=== PATIENT | female | born 1955 | race Caucasian/White ===

== ENCOUNTER → 2018-01-23 07:12 | Outpatient (CLI) | payer BC, SELFPAY ==
--- NOTE | 2018-01-23 07:24 | XR_ITS ---
XR lumbar spine min 4V COMPARISON: Lumbar spine 07/15/2014 HISTORY: Low back pain TECHNIQUE: AP lateral and oblique views and spot view lumbosacral junction FINDINGS: There is normal curvature and alignment. Again noted is minimal 5 to 6 mm anterolisthesis of L4 on L5. There is mild disc space narrowing at L4-5 level. All lumbar vertebrae appear intact and remaining disc spaces appear normal. There are hypertrophic facet changes at L4-5 and L5-S1 level as noted previously. There is no pars defect. The SI joints per normal. There is a total hip prosthesis right side. IMPRESSION: Mild degenerative disc disease L4-5 along with stable mild anterolisthesis of L4 and L5 likely secondary to prominent arthritic changes of the facet joints at L4-5. Prominent facet changes at L5-S1 are noted as well. There is been very little if any change in the appearance of the lumbar spine from previous exam.
[2018-01-23 09:08] LABS: Basophils # 0.1 K/mm3 (0-0.2); Basophils % 0.8 % (0.1-2.0); Eosinophils # 0.2 K/mm3 (0.0-0.4); Eosinophils % 2.9 % (0.1-12.0); Hematocrit 43.4 % (37.0-47.0); Hemoglobin 14.5 g/dL (12.2-16.2); Lymphocytes # 2.2 K/mm3 (0.7-4.5); Lymphocytes % 32.6 K/mm3 (10-50); Mean Corpuscular HGB Conc 33.4 g/dL (31.8-35.4); Mean Corpuscular Hemoglobin 29.5 pg (27.0-31.2); Mean Corpuscular Volume 88.4 fl (81-99); Mean Platelet Volume 9.3 fl (7.4-10.4); Monocytes # 0.4 K/mm3 (0.1-1.0); Monocytes % 5.7 % (1.7-9.3); Neutrophils # 3.9 K/mm3 (1.8-7.8); Platelet Count 276 K/mm3 (142-424); Red Blood Count 4.91 M/mm3 (4.20-5.40); Red Cell Distribution Width 13.2 % (11.5-17.5); White Blood Count 6.8 K/mm3 (4.8-10.8)
[2018-01-23 09:28] LABS: Alanine Aminotransferase 37 U/L (12-78); Albumin Level 3.6 gm/dL (3.4-5.0); Alkaline Phosphatase 79 U/L (46-116); Anion Gap 13.4 mEq/L (5-15); Aspartate Amino Transferase 31 U/L (15-37); Bilirubin,Total 0.5 mg/dL (0.2-1.0); Blood Urea Nitrogen 18 mg/dL (7-18); Calcium 8.9 mg/dL (8.5-10.1); Carbon Dioxide 25 mmol/L (21.0-32.0); Chloride 109 mmol/L (98-107); Cholesterol 186 mg/dL (140-200); Creatinine,Serum 0.78 mg/dL (0.55-1.02); Estimated Glomerular Filt Rate 75 ml/min (>60); GFR (African American) 91 ML/MIN (>60); Globulin 3.5 gm/dl (1.3-3.2); Glucose 132 mg/dL (74-106); HDL Cholesterol 47 mg/dL (29-89); LDL Cholesterol 121 mg/dL (0-130); Potassium 4.4 mmoL/L (3.5-5.1); Sodium 143 mmol/L (136-145); Total Protein,Serum 7.1 gm/dL (6.4-8.2); Triglycerides 89 mg/dL (30-200); VLDL Cholesterol 18 mg/dL (0-40)
== END ==
PROVIDERS: Visit Provider Family Medicine
DX: I10 Essential (primary) hypertension (principal); E78.5 Hyperlipidemia, unspecified; Z68.41 Body mass index [BMI] 40.0-44.9, adult; M54.16 Radiculopathy, lumbar region
CPT/HCPCS: 36415; 72110; 80053; 80061; 84443; 85025

== ENCOUNTER → 2018-03-03 07:53 | Outpatient (CLI) | payer BC, SELFPAY ==
--- NOTE | 2018-03-03 07:57 | MR_ITS ---
MR lumbar spine wo con, MR 3-d myelogram/MRCP HISTORY: LT sided LBP with pain in hip and groin and pain radiates to knee. Symptoms [id number]. No trauma ITS.REASON: ACUTE LEFT SIDED LOW BACK PAIN ORDERING PHYSICIAN: Randell Delgado MD PATIENT AGE: 62 years Comparison: X-RAY 01-23-18 TECHNIQUE: Standard multiplanar multiecho sequences are performed without contrast. 3-D MIP and myelographic images are also rendered and reviewed FINDINGS: Spinal cord ends at the T12-L1 level. L1-L2: Unremarkable. L2-L3: Minimal disc desiccation with minimal bulging disc. L3-L4: Mild disc desiccation with minimal bulging disc along with facet and ligamentum hypertrophy with mild bilateral lateral recess narrowing. L4-L5: 4 mm anterolisthesis of L4 on L5 with bulging disc along with facet and ligamentum flavum hypertrophy. L5-S1: Degenerative disc disease with bulging discs eccentric towards the right. No fracture or dislocation. No disc herniation or canal stenosis. IMPRESSION: Mild lumbar spondylosis with degenerative disc disease and bulging disc facet and ligamentum hypertrophy as detailed above. Please see above for detailed description age level. No canal stenosis or disc herniation IMPRESSION:
== END ==
PROVIDERS: Family Provider Family Medicine; PCP Family Medicine; Visit Provider Family Medicine
DX: M54.42 Lumbago with sciatica, left side (principal)
CPT/HCPCS: 72148; 76376

== ENCOUNTER 2018-03-31 07:00 | Outpatient (RCR) | payer BC, SELFPAY ==
--- NOTE | 2018-01-28 14:05 | HMH.PTOPWND ---
Rehab Outpt Wound Evaluation Rehab OP Wound Evaluation Start: 01/28/18 13:45 Freq: Status: Active Protocol: Document 01/28/18 13:45 EDY (Rec: 01/28/18 14:05 PHORNE [id number]) Electronically Signed By Kenney Akers, PT 01/28/18 13:45 Subjective/History History History Pt presents with c/o nataliya LE edema (left > right) x ~ 8 yrs , gradually worse. She reports frequent pain and limited tingling when swelling is severe. She reports hx of right CINDA 4 yrs ago, Melanoma removals from nataliya lower legs, CCY, and partial hysterectomy. Lymphedema Eval Classification of Lymphedema Secondary Lymphedema Yes Stage of Lymphedema Lymphedema stages Stage I (Pitting edema, reduces w/ elevation, no fibrosis) Skin Changes Dry Skin Yes Taut, Shiny Skin Yes Redness Yes Discoloration of Skin Yes Pain Scale Pain Scale (0-10) 10 Affected Extremities Areas Affected by Lymphedema/Edema Right Lower Extremity Left Lower Extremity Manual Lymphatic Drainage Treatment Area MLD Treatment Area Right Lower Extremity Left Lower Extremity Wound Problems/Impairments Impairments Problems/Impairmments Palpation Tenderness Impaired Walking Increased Edema Lymphedema Present Subjective C/O Pain Impaired Self Care/Self Management Prognosis Rehab Potential Good Clinical Impression Consistent with Diagnosis Yes Short Term Goals Number of Weeks 4 Decreased Palpation Tenderness Yes: to min Decrease Subjective C/O Pain Yes: 7/10 at worst Patient to Understand Lymphedema Yes Treatment and Exercises Decrease Girth Measurments by (cm) Yes: by 10 cm Farmworker Livestock Goals Number of Weeks 8 Decreased Palpation Tenderness Yes: to none Patient to be Ind w/ HEP Yes Patient to Adhere Lymphedema Precautions Yes Decrease Girth Measurments by (cm) Yes: by 15 cm Outpatient Therapy Plan of Care Treatment Plan May Include Therapeutic Exercise Including Home Yes Exercise Program Manual Therapy Techniques Yes Neuromuscular Re-education Yes Orthotics/Bracing/Splinting Yes Massage Yes Manual Lymphatic Drainage Yes Eval/Re-Eval
--- NOTE | 2018-03-31 10:56 | HMH.RHREAS ---
Rehab Reassessment Rehab OP Re-assessment Start: 03/31/18 10:49 Freq: Status: Active Protocol: Document 03/31/18 10:49 EDY (Rec: 03/31/18 10:54 EDY [id number]) Electronically Signed By Kenney Akers, PT 03/31/18 10:49 Rehab Re-assessment Subjective Subjective Pt reports improved swelling in left LE and considerably less pain. Objective Objective Notes Circumferential Measurement: Left LE total is -21.2 cm since initial eval. Assessment Progress Assessment Progressing as Expected Assessment Notes Pt following all home program well and improving edema. Patient goals met ST,2,3,[address] LT Goals Not Met ST LT,2,3 Revised Goals none Plan Plan Continue per initial POC. Frequency of Therapy 2 x/wk Duration of therapy 8 wks Time and Billing Re-Eval Time 15 Re-Eval Billing Units 1 PHYSICIAN CERTIFICATION: I certify the specified therapy services for Mindy Berman are required, authorized, and reviewed every 30 days.
== END 2018-03-31 07:01 | disposition home or self-care (01) ==
LOC: PT 07:00
PROVIDERS: Family Provider Family Medicine; PCP Family Medicine; Visit Provider Family Medicine
DX: I89.0 Lymphedema, not elsewhere classified (principal)
CPT/HCPCS: 97140; 97162; 97164; 97760

== ENCOUNTER 2018-05-27 08:00 | Outpatient (RCR) | payer BC, SELFPAY ==
--- NOTE | 2018-03-31 11:09 | HMH.PTOPEV ---
PT Outpatient Evaluation Rehab PT Outpatient Evaluation Start: 03/31/18 08:29 Freq: Status: Active Protocol: Document 03/31/18 10:58 EDY (Rec: 03/31/18 11:08 PHORRAY [id number]) Electronically Signed By Kenney Akers, PT 03/31/18 10:58 Outpatient Therapy Subjective History Subjective History Pt is a 62 yo white female who presents with worsening LPB and left LE pain x ~ 6 mos with insidious onset. She reports pain is constant, but mild, with intermittent bouts of severe pain with some activities, but no discernible pattern. She reports she went to chiropractor for 3 mos with no relief. She had MRI performed which shows L3-4 mild disc bulge and L4-5 anteriolisthesis. PMH: Right CINDA ~ 3 yrs ago, CCY, partial hysterectomy, and melanoma removal from left lower leg. Chief Complaint Pain Symptom Type Ache Throb Sharp Symptoms Relieved By Rest/Positioning Symptoms Aggravated By Physical Activity Walking Prior Functional Limitations None Current Functional Limitations Housework Standing Walking Symptom Description Constant but Variable Level of pain today (0-10) 4 Pain scale - at its worst (0-10) 10 Lumbopelvic Eval Palapation tenderness left buttock tenderness Yes Lumbar/Sacral Palpation Findings Tenderness Lumbar/Sacral Palpation Overall Comment left SI tenderness Accessory Movement L-spine Vertebrae Accessory Movements Central P/A [place] that Elicit Symptoms L3 bilateral L4 bilateral L5 bilateral S1 bilateral Range of Motion Lumbar Spine Active Flexion Range of 0-65 Motion (degrees) Lumbar Spine Active Extension Range of 0-15 Motion (degrees) Left Lumbar Spine Lateral Flexion Active 0-15 Range of Motion (degrees) Right Lumbar Spine Lateral Flexion 0-10 Active Range of Motion (degrees) Manual Muscle Test Left Knee Extension Strength Grade 5 Normal Knee Flexion Strength Grade 5 Normal Hip Flexion Strength Grade 3 Fair Hip Abduction Strength Grade 4- Good- Hip Add
--- NOTE | 2018-04-30 10:44 | HMH.RHREAS ---
Rehab Reassessment Rehab OP Re-assessment Start: 04/30/18 10:32 Freq: Status: Active Protocol: Document 04/30/18 10:33 EDY (Rec: 04/30/18 10:36 EDY [id number]) Electronically Signed By Kenney Akers, PT 04/30/18 10:33 Rehab Re-assessment Subjective Subjective Pt reports less pain in left LE but pain remains in left hip and low back. Objective Objective Notes Lumbar AROM: Flex= 0-65 deg, Ext= 0-20 deg, R SB= 0-20 deg, L SB= 0-20 deg. Assessment Progress Assessment Progressing as Expected Assessment Notes Pt has less radicular symptoms , but pain remains in left hip . Patient goals met ST,2,3,4,5 LT Goals Not Met ST LT,2,3,4,5 Revised Goals none Plan Plan Continue per initial POC. Frequency of Therapy 2 x/wk Duration of therapy 8 wks. Time and Billing Re-Eval Time 15 Re-Eval Billing Units 1 PHYSICIAN CERTIFICATION: I certify the specified therapy services for Mindy Berman are required, authorized, and reviewed every 30 days.
== END 2018-05-27 08:01 | disposition home or self-care (01) ==
LOC: PT 08:00
PROVIDERS: Family Provider Family Medicine; PCP Family Medicine; Visit Provider Physician Assistant
DX: M54.42 Lumbago with sciatica, left side (principal)
CPT/HCPCS: 97010; 97014; 97033; 97110; 97140; 97163; 97164; G0283

== ENCOUNTER → 2018-10-14 16:32 | Outpatient (CLI) | payer BC, SELFPAY ==
--- NOTE | 2018-10-14 16:40 | XR_ITS ---
XR chest 2V HISTORY: Productive cough ITS.REASON: Bronchitis ORDERING PHYSICIAN: SASHA Wharton PATIENT AGE: 63 years COMPARISON: 06/08/2012 FINDINGS: The cardiomediastinal silhouette and pulmonary vascularity are within normal limits. The lungs are clear without infiltrates, suspicious nodules, or pleural effusions. No acute bony abnormalities. IMPRESSION: Negative chest, no acute finding
== END ==
PROVIDERS: PCP Physician Assistant; Visit Provider Physician Assistant
DX: J40 Bronchitis, not specified as acute or chronic (principal)
CPT/HCPCS: 71046

== ENCOUNTER → 2019-02-03 12:53 | Outpatient (CLI) | payer BC, SELFPAY ==
--- NOTE | 2019-02-03 12:55 | XR_ITS ---
XR DEXA axial skeleton HISTORY: ITS.REASON: POST MENOPAUSAL SCREENING ORDERING PHYSICIAN: Elmira Duenas MD PATIENT AGE: 63 years COMPARISON: None FINDINGS: The BMD measured at the Total femoral neck is 0.916 g/cm squared with a T score of -0.7. This is considered Normal according to the World Health Organization criteria. Fracture risk is Low. Treatment is advised. The L1 L4 density has a T score of 1 which is normal.. IMPRESSION: Normal bone density with low fracture risk. Recommend follow-up exam in January 2021
== END ==
PROVIDERS: PCP Emergency Medicine; Visit Provider Emergency Medicine
DX: Z13.820 Encounter for screening for osteoporosis (principal); Z78.0 Asymptomatic menopausal state
CPT/HCPCS: 77080

== ENCOUNTER → 2019-05-02 15:19 | Outpatient (CLI) | payer BC, SELFPAY ==
--- NOTE | 2019-05-02 15:24 | NVE_ITS ---
Venous Exam Indications: 729.5 Pain in limb. 782.3 Edema. IMPRESSIONS 1. There is no evidence of significant Reflux. 2. No evidence of deep or superficial vein thrombosis involving the left lower extremity Left lower extremity venous duplex evaluation. Doppler flow study including spectral analysis, color and salazar scale imaging. Location: Vascular laboratory. Patient status: Outpatient. Tables: Venous flow and imaging: + +-------+ + Location Overall Flow properties + +-------+ + Left common femoral Patent Normal phasicity; spontaneous; normal augmentation; compressible + +-------+ + Left saphenofemoral junction Patent Compressible + +-------+ + Left profunda femoral Patent Compressible + +-------+ + Left femoral Patent Normal phasicity; spontaneous; normal augmentation; compressible + +-------+ + Left greater saphenous Patent Normal phasicity; spontaneous; normal augmentation; compressible + +-------+ + Left popliteal Patent Normal phasicity; spontaneous; normal augmentation; compressible + +-------+ + Left posterior tibial Patent Compressible + +-------+ + Left peroneal Patent Compressible + +-------+ + Left gastrocnemius Patent Compressible + +-------+ + Left soleal Patent Compressible + +-------+ + (Report amended ) Electronically signed by: Julio Pedro [id number]
== END ==
PROVIDERS: PCP Emergency Medicine; Visit Provider Emergency Medicine
DX: M79.662 Pain in left lower leg (principal); M79.89 Other specified soft tissue disorders
CPT/HCPCS: 93971

== ENCOUNTER → 2019-09-10 10:02 | Outpatient (CLI) | payer BC, SELFPAY ==
--- NOTE | 2019-09-10 10:09 | CA_ITS ---
APPROVED REPORT EXAM: Comprehensive 2D, Doppler, and color-flow Echocardiogram Pest Control Operator: Gricelda Garcia RDCS Ht: 5 ft 5 in Wt: 250lbs BSA: 2.17 BP: 155/70 mmHg Indications: TIA M-Mode Dimensions RVDd 2.77 cm (0.9-2.6) LVDd 4.61 cm (3.5-5.7) LVDs 3.31 cm (3.5-5.7) IVSd 0.76 cm (0.6-1.1) PWd 0.78 cm (0.6-1.1) EF (Teich) 54.50% FS 28.20% EDV (Teich) 97.80 mL ESV (Teich) 44.50 mL LV Diastology E/A Ratio 1.16 Mitral Valve MV A Velocity 87.00 (40-130 cm/s) Left Ventricle Left atrium is mildly enlarged, left ventricle is normal size, mild concentric left ventricular hypertrophy, visually estimated ejection fraction 55% with no regional wall motion abnormality. Grade 1 diastolic dysfunction seen without tissue Doppler evidence of raise left atrial pressure. Right Ventricle Right atrium and right ventricular normal size and contractility. Aortic Valve Aortic valve is minimally thickened and fibrosed. There is no aortic stenosis or aortic insufficiency. Mitral Valve Mitral valve leaflets are minimally thickened, there is mild mitral regurgitation. Tricuspid Valve Tricuspid valve is grossly normal. There is mild tricuspid regurgitation. Calculated right ventricular systolic pressure 39 mmHg. Pulmonic Valve Pulmonic valve is poorly visualized. Conclusion 1. Mildly enlarged left atrium, normal left ventricular size, mild concentric left ventricular hypertrophy, visually estimated ejection fraction 55% with no regional wall motion abnormality, grade 1 diastolic dysfunction seen without tissue Doppler evidence of raise left atrial pressure. 2. Mild mitral and tricuspid regurgitation. 3. No significant pericardial effusion noted. Electronically signed by : Nba Marte, 09/12/2019 09:48:30
== END ==
PROVIDERS: PCP Family Medicine; Visit Provider Family Medicine
DX: G45.9 Transient cerebral ischemic attack, unspecified (principal)
CPT/HCPCS: 93306

== ENCOUNTER → 2019-11-12 12:50 | Outpatient (CLI) | payer BC, SELFPAY ==
--- NOTE | 2019-11-12 12:50 | MR_ITS ---
PROCEDURE: MR HEAD/BRAIN WO CON CLINICAL INDICATION: TIA Headache, double vision, follow-up abnormal head CT COMPARISON: CT HEAD/BRAIN WO CON from 09/03/2019 TECHNIQUE: Routine multiplanar multi echo sequences are performed without gadolinium enhancement. FINDINGS: No midline shift, mass effect, intracranial hemorrhage, or hydrocephalus. The cerebellopontine angles, cerebellum, brainstem and mid brain have an unremarkable appearance. No evidence of acute infarction. There is some minimal T2 white matter hyperintensity noted in the right occipital lobe nonspecific. No acute infarctions are evident. No restricted diffusion. The hippocampal gyri are unremarkable and the temporal horns are symmetric. No intra-axial or extra-axial hemorrhage. The pituitary, optic chiasm, corpus callosum, and craniocervical junction have an unremarkable appearance. No mastoid effusion or sinus air-fluid level. THE IMPRESSION: 1. No acute intracranial findings. 2. Small area of increased T2 signal in the white matter of the right occipital lobe nonspecific and could be due to minimal ischemic gliotic change. Dictated by: Kevin Grant MD 11/15/2019 09:32 Electronically signed by Kevin Grant MD in [place] 11/15/2019 09:32
== END ==
PROVIDERS: PCP Family Medicine; Visit Provider Specialist
DX: G45.9 Transient cerebral ischemic attack, unspecified (principal); G43.119 Migraine with aura, intractable, without status migrainosus; R03.0 Elevated blood-pressure reading, without diagnosis of hypertension; R51 Headache; R93.89 Abnormal findings on diagnostic imaging of other specified body structures; E78.5 Hyperlipidemia, unspecified; G47.00 Insomnia, unspecified; R06.83 Snoring
CPT/HCPCS: 70551; 93225; 93226; 94762

== ENCOUNTER 2019-12-09 07:10 | Day surgery (SDC) | payer BC, SELFPAY ==
--- NOTE | 2019-12-09 | CA_ITS ---
APPROVED REPORT Exam: Pharmacologic Technologist: Myla Shanks, Ht: 5 ft 5 in Wt: 252 lbs BSA: 2.18 m2 HR: 50 bpm BP: 132/76 mmHg Rhythm: SINUS BRADYCARDIA Indications: TIA,CAD,CP Medical History Medical History: CAD non obstructive, Stroke/TIA, CHEST PAIN Medications: Propranolol,,,,, SpirOnolactone,,,,, LevothROXINE,,,,, Allergies: AMOXICILLIN,ATORVASTATIN,AZITHROMYACIN Cardiac Risk Factors: FHX of CAD Stress Test Details Test: LEXISCAN HR Resting HR: 47 bpm Max Heart Rate (APMHR): 158 bpm Max HR Achieved: 83 bpm Target HR (85% APMHR): 134 bpm % of APMHR: 52 Recovery HR: 62 bpm BP Resting BP: 132.0/76.0 mmHg Max BP: 139.0/65.0 mmHg Recovery BP: 121.0/61.0 mmHg ECG Resting ECG: SINUS BRADYCARDIA Clinical Exercise duration: 04:01 min Highest Stage Achieved: Stress ECG Conclusion DURING INFUSION OF LEXISCAN PATIENT HAD SOA AND MALAISE BUT NO CHEST PAIN. NO ARRHYTHMIAS/ECTOPY. NO SIGNIFICANT ST-T CHANGES. UNREMARKABLE LEXISCAN STRESS. MYOVIEW IMAGES REPORTED SEPARATELY. Test Summary REST 09:16 . . 47 . 132/ 76 . . Stage 1 01:00 . . 72 . . . . Stage 2 01:00 . . 73 . 139/ 65 . . Stage 3 01:00 . . 70 . . . . Stage 4 01:00 . . 66 . 119/ 56 . . Stage 4 01:01 . . 67 . 119/ 56 . Stop exercise at 04:01 RECOVERY 01:00 . . 67 . . . . RECOVERY 02:00 . . 66 . 121/ 61 . . RECOVERY 03:00 . . 64 . 127/ 68 . . RECOVERY 03:23 . . 63 . 127/ 68 . . Electronically signed by : Nba Marte, 12/09/2019 13:58:23
--- NOTE | 2019-12-09 07:18 | NM_ITS ---
APPROVED REPORT Exam: Nuclear Stress Test Indication: chest pain..short of breath..palpitations..fatique Patient Location: Outpatient Stress Tech: Myla Rimma LA Tech:Eula SanfordSHAINA RT(R)(N) Ht: 5 ft 5 in Wt: 252 lbs Bra Size: 40dd HR: 50 bpm BP: 132/76 mmHg BSA: 2.18 m2 BMI: 41.9 History: chest pain..short of breath..palpitations..fatique Procedure: Patient received a 0.4 mg of intravenous Lexiscan, resting heart rate 50 bpm, resting blood pressure 132/76 mmHg, with Lexiscan maximum heart rate achived was 74 bpm which is Less than 85 % of the maximum predicted heart rate and blood pressure was 139/65 mmHg. With Lexiscan, patient denied any complaint of chest pain. Electrocardiogram Resting electrocardiogram showed sinus rhythm, with Lexiscan there is less than 1.[address] segment depression noted from the baseline EKG. The EKG portion of the Lexiscan Myoview is nondiagnostic. Cardiac Stress and Resting SPECT Images: Cardiac Stress and Resting SPECT images were obtained using technetium 99m Myoview 32.3 mCi stress and 10.31 mCi at rest. Gated SPECT with analysis of segmental wall motion and calculation of the ejection fraction also done. Cardiac stress and resting SPECT images show a mild fixed defect at the apex with normal contractility on gated SPECT is likely secondary to apical thinning, no reversible ischemia seen, computer derived ejection fraction is 52% with no regional wall motion abnormality, right ventricle is normal size and contractility. Conclusion: 1. The EKG portion of the Lexiscan Myoview is nondiagnostic. 2. No obvious scintigraphic evidence of reversible ischemia seen, a mild fixed defect at the apex with normal contracted gated SPECT is likely secondary to soft tissue attenuation, computer derived ejection fraction 52% with no regional wall motion abnormality, right ventricle is normal size and contractility. 3. Likely normal Lexiscan Myoview study. Electronically signed by : Nba Marte, 12/09/2019 14:00:55
--- NOTE | 2019-12-09 07:18 | CA_ITS ---
APPROVED REPORT EXAM: Comprehensive 2D, Doppler, and color-flow Echocardiogram Snath Handle Assembler: Gricelda Garcia RDCS Ht: 5 ft 5 in Wt: 255lbs BSA: 2.19 BP: 110/86 mmHg Indications: CVA/TIA KIN Procedure After obtaining informed consent, patient underwent transesophageal echo in the Aeronautical [facility]fter. Type of Sedation : Conscious Sedation Sedation was administered by Dillan CuellarNVandana Transesophageal probe was inserted and advanced into esophagus without difficulty by Dr. Nilton Lee. The KIN was performed without complications. Throughout the procedure, the blood pressure, pulse oximetry, cardiac rhythm, and rate were monitored. The patient tolerated the procedure without adverse effects. Recovery from conscious sedation was uneventful and vital signs were stable. Left Ventricle Left ventricle is normal size, mild concentric left ventricular hypertrophy, visually estimated ejection fraction 55% with no regional wall motion abnormality. Right Ventricle Right ventricle is normal size and contractility. Atria Left atrium is mildly enlarged, left atrial appendage free of thrombus, there is good appendage flow by spectral Doppler. Right atrium is normal size. Intra-atrial septum is intact, there is no flow across the interatrial septum, agitated saline contrast reveals 25 intracardiac shunt. Aortic Valve Aortic valve is minimally thickened and fibrosed, there is no aortic stenosis or aortic insufficiency. Mitral Valve Mitral valve is grossly normal, there is mild mitral regurgitation. Tricuspid Valve Tricuspid valve is grossly normal, there is mild tricuspid regurgitation. Pulmonic Valve Pulmonic valve is poorly visualized. Great Vessels Aortic root is normal size. Non-mobile atheromatous plaque seen in the arch and descending thoracic aorta. Pericardium No significant pericardial effusion noted. Conclusion 1. Mildly enlarged left atrium, normal left ventricular size, mild concentric left ventricular hypertrophy, visually estimated ejection fraction 55% with no regional wall motion abnormality. 2. Agitated saline contrast study fails to identify intracardiac shunt. Intra-atrial septum is intact. 3. Mild mitral and tricuspid regurgitation. 4. Non-mobile atheromatous plaque seen in the arch and descending thoracic aorta. 5. No significant pericardial effusion noted. Electronically signed by : Nba Marte, 12/09/2019 15:51:48
--- NOTE | 2019-12-09 09:34 | HMH.ITSHM ---
Current Home Medications as stated by this patient Mindy Berman or inside account representative. [] synthyroid propanolol spiralactone
[2019-12-09 11:52] VITALS: BMI 42.4
[2019-12-09 12:35] VITALS: BP 163/75; PULSE 51; PULSE 52; RESP 16; TEMP 37.1; O2SAT 100
[2019-12-09 13:19] VITALS: BP 157/75; PULSE 74; RESP 16; TEMP 36.8; O2SAT 98
[2019-12-09 13:25] VITALS: BP 132/62; PULSE 56; RESP 16; O2SAT 99
--- NOTE | 2019-12-09 13:26 | HMH.ANESCL ---
[facility] Anesthesia Checklist - Patient Identification Patient Identification: Arm Band, Verbal (Name & ) - Structural Data Admitted From: Home Planned Operative Procedure/s: KIN Consent for Planned Operative Procedure(s) Verified: Yes Verified Documents: History and Physical - NPO Status Verified Time NPO: 00:00 - Additional verifications Patient : No Anesthesia Reactions: No Hx Blood Transfusions: No Blood Transfusion Reaction: No Cephalosporin Allergy: No Previous Colonoscopy: No - Cardiovascular Assessment Heart Sounds: S1 & S2 Pulse Strength: Baseline Pulse Rhythm: Regular Peripheral Edema: No - Airway Assessment C-Spine Mobility Assessed: Yes TMJ Mobility Assessed: Yes Dentition: Good Dentition - Neurological Assessment Level of Consciousness: Awake, Alert, Appropriate Hx Seizures: No Numbness or tingling in extremities: No - Anesthesia Plan Anesthesia Risk discussed: Yes Anesthesia Plan: Verified ASA Class: III Anesthesia Type: MAC [facility] History I have reviewed the patient's past medical history: Yes Medical History: Reports:: Cancer, Heart Murmur, Hypertension, Kidney Stones, Migraine, Transient Ischemic Attacks (TIA) Denies:: Diabetes Mellitus Type 1, Diabetes Mellitus Type 2, Internal Pacemaker, Seizures *Have you ever received a pneumonia vaccine?: No *Have you received a flu vaccine this season?: Yes Other Medical History: Reports: Arthritis, Thyroid Disease Anesthesia experience/problems:: none Laterality Cases: Right: Arthroscopy Knee, Bilateral: Total Hip Replacement Other Surgeries: Yes: Cholecystectomy, Hysterectomy-Partial. No: Pacemaker - *Social History Educational Level: Completed High School Smoking Status: Never smoker Alcohol Intake: never Substance Use Type: denies use *Occupational Status:: retired Housing: house Household Members: spouse *Travel in the last 8 weeks: None Family Hx:: Cancer, Diabetes
[2019-12-09 13:30] VITALS: BP 121/71; PULSE 60; RESP 16; O2SAT 98
[2019-12-09 14:50] VITALS: BP 121/71; PULSE 60; RESP 16; O2SAT 98
== END 2019-12-09 15:01 | disposition home or self-care (01) ==
LOC: RAD 07:10
PROVIDERS: Internal Medicine Cardiovascular Disease; PCP Family Medicine; Visit Provider Physician Assistant
DX: R94.31 Abnormal electrocardiogram [ECG] [EKG] (principal); I63.9 Cerebral infarction, unspecified; R00.1 Bradycardia, unspecified; R07.9 Chest pain, unspecified
CPT/HCPCS: 78452; 93017; 93312; A9502; J2785

== ENCOUNTER → 2020-04-10 07:28 | Outpatient (CLI) | payer BC, SELFPAY ==
[2020-04-10 07:52] LABS: Basophils # 0.1 K/mm3 (0-0.2); Basophils % 0.8 % (0.1-2.0); Eosinophils # 0.4 K/mm3 (0.0-0.4); Eosinophils % 4.9 % (0.1-12.0); Hematocrit 43.3 % (37.0-47.0); Hemoglobin 14.3 g/dL (12.2-16.2); Lymphocytes # 2.8 K/mm3 (0.7-4.5); Lymphocytes % 33.9 % (10-50); Mean Corpuscular HGB Conc 33.1 g/dL (31.8-35.4); Mean Corpuscular Hemoglobin 30.5 pg (27.0-31.2); Mean Platelet Volume 8.1 fl (7.4-10.4); Monocytes # 0.5 K/mm3 (0.1-1.0); Monocytes % 5.5 % (1.7-9.3); Neutrophils # 4.4 K/mm3 (1.8-7.8); Neutrophils % 54.8 % (37.0-80.0); Platelet Count 253 K/mm3 (142-424); Red Blood Count 4.71 M/mm3 (4.20-5.40); Red Cell Distribution Width 13.5 % (11.5-17.5); White Blood Count 8.1 K/mm3 (4.8-10.8)
[2020-04-10 09:59] LABS: Chloride 107 mmol/L (98-107); Potassium 4.5 mmoL/L (3.5-5.1); Sodium 138 mmol/L (136-145)
[2020-04-10 10:01] LABS: Blood Urea Nitrogen 8 mg/dl (7-17); Estimated Glomerular Filt Rate 73 ml/min (>60); GFR (African American) 88 ML/MIN (>60)
[2020-04-10 10:02] LABS: Alanine Aminotransferase 33 U/L (12-78); Albumin Level 3.4 g/dl (3.5-5.0); Alkaline Phosphatase 77 U/L (38-126); Anion Gap 8.5 mEq/L (5-15); Aspartate Amino Transferase 42 U/L (14-36); Bilirubin,Total 0.4 mg/dl (0.2-1.3); Calcium 9.5 mg/dl (8.4-10.2); Carbon Dioxide 27 mmol/L (22.0-30.0); Chol/HDL Ratio 3.9 (1-3.5); Cholesterol 173 mg/dl (140-200); Glucose 126 mg/dl (74-100); HDL Cholesterol 44 mg/dl (40-60); Total Protein,Serum 6.1 g/dl (6.3-8.2); Triglycerides 124 mg/dl (30-150); VLDL Cholesterol 25 mg/dL (0-40)
[2020-04-10 10:08] LABS: Bilirubin,Unconjugated 0.4 mg/dL (0.0-1.1)
[2020-04-10 10:48] LABS: Bilirubin,Indirect 0.4 mg/dL (0.0-0.9)
== END ==
PROVIDERS: Visit Provider Physician Assistant
DX: R06.02 Shortness of breath (principal); I10 Essential (primary) hypertension; R53.83 Other fatigue
CPT/HCPCS: 36415; 80048; 80061; 80076; 85025

== ENCOUNTER → 2020-04-24 11:52 | Outpatient (CLI) | payer BC, SELFPAY ==
[2020-04-24 12:59] LABS: Chloride 105 mmol/L (98-107); Potassium 4.5 mmoL/L (3.5-5.1); Sodium 137 mmol/L (136-145)
[2020-04-24 13:02] LABS: Anion Gap 11.5 mEq/L (5-15); Blood Urea Nitrogen 8 mg/dl (7-17); Carbon Dioxide 25 mmol/L (22.0-30.0); Estimated Glomerular Filt Rate 85 ml/min (>60); GFR (African American) 102 ML/MIN (>60)
[2020-04-24 13:03] LABS: Calcium 8.7 mg/dl (8.4-10.2); Glucose 108 mg/dl (74-100)
[2020-04-24 13:34] LABS: Thyroid Stimulating Hormone 1.61 uIU/mL (0.465-4.68)
== END ==
PROVIDERS: Visit Provider Physician Assistant
DX: R07.9 Chest pain, unspecified (principal); R06.02 Shortness of breath; I10 Essential (primary) hypertension; R53.83 Other fatigue; E03.9 Hypothyroidism, unspecified
CPT/HCPCS: 36415; 80048; 84443

== ENCOUNTER → 2020-05-01 10:33 | Outpatient (CLI) | payer BC, SELFPAY ==
[2020-05-01 11:12] LABS: Chloride 101 mmol/L (98-107); Potassium 4.8 mmoL/L (3.5-5.1); Sodium 136 mmol/L (136-145)
[2020-05-01 11:15] LABS: Anion Gap 14.8 mEq/L (5-15); Blood Urea Nitrogen 17 mg/dl (7-17); Carbon Dioxide 25 mmol/L (22.0-30.0); Estimated Glomerular Filt Rate 85 ml/min (>60); GFR (African American) 102 ML/MIN (>60)
[2020-05-01 11:16] LABS: Glucose 115 mg/dl (74-100)
== END ==
PROVIDERS: Visit Provider Physician Assistant
DX: R06.02 Shortness of breath (principal); I20.8 Other forms of angina pectoris; R00.1 Bradycardia, unspecified; R60.9 Edema, unspecified; R94.39 Abnormal result of other cardiovascular function study; Z86.79 Personal history of other diseases of the circulatory system
CPT/HCPCS: 36415; 80048

== ENCOUNTER → 2020-11-15 09:31 | Outpatient (CLI) | payer BC, SELFPAY | PROVIDERS: PCP Family Medicine; Visit Provider Urology | DX: R42 Dizziness and giddiness (principal); R55 Syncope and collapse; R00.2 Palpitations; R00.1 Bradycardia, unspecified; I10 Essential (primary) hypertension; I63.9 Cerebral infarction, unspecified | CPT/HCPCS: 93270 ==

== ENCOUNTER → 2020-11-21 07:16 | Outpatient (CLI) | payer BC, SELFPAY ==
--- NOTE | 2020-11-21 07:41 | CT_ITS ---
PROCEDURE: CT HEAD/BRAIN WO CON CLINICAL INDICATION: blurry vision, dizziness COMPARISON: CT CT ANGIO HEAD from 09/03/2019 TECHNIQUE: Axial images obtained. All CT scans at the facility use one or more dose reduction, viz: automated exposure control, ma/kV adjustment per patient size (including targeted exams where dose is matched to indication, i.e. head), or iterative reconstruction technique. FINDINGS: No midline shift, mass effect, intracranial hemorrhage, hydrocephalus, or extra-axial fluid collection is evident. The calvarium has an unremarkable appearance. No mastoid effusion. No sinus air-fluid level. IMPRESSION: No acute intracranial finding Dictated by: Kevin Grant MD 11/21/2020 15:11 Kevin Grant MD in [place] 11/21/2020 15:11
[2020-11-21 07:53] LABS: Chloride 109 mmol/L (98-107); Sodium 139 mmol/L (136-145)
[2020-11-21 07:54] LABS: Potassium 4.2 mmoL/L (3.5-5.1)
--- NOTE | 2020-11-21 07:55 | CA_ITS ---
APPROVED REPORT [place] Carver: RUSSELL Laterality: Bilateral Indications: syncope, dizziness, blurred vision, bradycardia, hx of stroke Risk Factors Hypertension: Doppler Spectral Velocity Analysis ECA (R) 78.60/15.00 cm/s ECA (L) 63.60/11.80 cm/s dICA (R) 68.50/30.00 cm/s dICA (L) 90.50/26.20 cm/s Robin (R) 114.00/45.40 cm/s Robin (L) 102.00/36.00 cm/s pICA (R) 83.80/30.70 cm/s pICA (L) 77.70/29.50 cm/s dCCA (R) 72.60/19.50 cm/s dCCA (L) 50.10/19.30 cm/s pCCA (R) 89.80/24.60 cm/s pCCA (L) 73.80/16.10 cm/s Vert (R) 43.70/10.90 cm/s Vert (L) 56.90/20.20 cm/s ICA/CCA 1.57 ICA/CCA 2.04 Findings Duplex evaluation demonstrates stenosis of the right proximal internal carotid artery <20% with PSV <140 cm/sec, EDV <100 cm/sec, and IC/CC Ratio <4.0. Duplex evaluation demonstrates stenosis of the left proximal internal carotid artery <20% with PSV <140 cm/sec, EDV <100 cm/sec, and IC/CC Ratio <4.0. Conclusion Duplex evaluation demonstrates stenosis of the right proximal internal carotid artery <20% with PSV <140 cm/sec, EDV <100 cm/sec, and IC/CC Ratio <4.0. Duplex evaluation demonstrates stenosis of the left proximal internal carotid artery <20% with PSV <140 cm/sec, EDV <100 cm/sec, and IC/CC Ratio <4.0. Electronically signed by : Kevin Grant MD 11/21/2020 14:57:09
--- NOTE | 2020-11-21 07:55 | CA_ITS ---
APPROVED REPORT EXAM: Comprehensive 2D, Doppler, and color-flow Echocardiogram Tax Evaluator: Katherine Beaver, RT(R) Ht: 5 ft 5 in Wt: 251lbs BSA: 2.18 BP: 155/58 mmHg Indications: palpitations, murmur, syncope, edema, HTN, dizziness, blurred vision, bradycardia, hx of stroke 2D Dimensions LVOT 1.81 cm (M/F) 1.5-2.5 M-Mode Dimensions RVDd 2.92 cm (0.9-2.6) LA Diam 3.02 cm (1.9-4.0) LVDd 3.14 cm (3.5-5.7) Ao Diam 3.32 cm (2.0-3.7) LVDs 2.46 cm (3.5-5.7) IVSd 1.31 cm (0.6-1.1) PWd 1.02 cm (0.6-1.1) EF (Teich) 45.30% FS 21.70% EDV (Teich) 39.10 mL ESV (Teich) 21.40 mL LV Diastology E Decel Time 233.00 (160-240 msec) E/A Ratio 1.2 MED E' 8.00 (< 7 cm/sec) E'/MED E' Ratio 11.33 (>14) LAT E' 10.30 (<10 cm/sec) E/LAT E' Ratio 8.80 (>14) Mitral Valve MV E Max Valeriano. 91.00 (40-130 cm/s) MV A Velocity 79.00 (40-130 cm/s) E/A Ratio 1.15 MV Decel. Time 233.00 (160-240 ms) MV PHT 68.00 ms Tricuspid Valve TR P. Velocity 245.00 cm/s RAP Estimate 15.00 mmHg RVSP 39.10 mmHg Left Ventricle Left atrium is mildly enlarged, left ventricle is normal size, mild concentric left ventricular hypertrophy, visually estimated ejection fraction 55% with no regional wall motion abnormality, grade 1 diastolic dysfunction seen without tissue Doppler evidence of raise left atrial pressure. Right Ventricle Right atrium and right ventricle are normal size and contractility. Aortic Valve Aortic valve is minimally thickened and fibrosed, there is no aortic stenosis or aortic insufficiency. Mitral Valve Mitral valve is grossly normal, there is mild mitral regurgitation. Tricuspid Valve Tricuspid valve is grossly normal, there is mild tricuspid regurgitation, tricuspid regurgitation jet velocity is inadequate for calculation of the right ventricular systolic pressure. Pulmonic Valve Pulmonic valve is poorly visualized. Great Vessels Aortic root is normal size. Pericardium No significant pericardial effusion noted. Conclusion 1. Mildly enlarged left atrium, normal left ventricular size, mild concentric left ventricular hypertrophy, visually estimated ejection fraction 55% with no regional wall motion abnormality, grade 1 diastolic dysfunction seen without tissue Doppler evidence of raise left atrial pressure. 2. Mild mitral and tricuspid regurgitation. 3. No significant pericardial effusion noted. Electronically signed by : Nba Marte, 11/21/2020 20:33:21
[2020-11-21 07:56] LABS: Blood Urea Nitrogen 9 mg/dl (7-17); Estimated Glomerular Filt Rate 85 ml/min (>60); GFR (African American) 102 ML/MIN (>60)
[2020-11-21 07:57] LABS: Anion Gap 9.2 mEq/L (5-15); Carbon Dioxide 25 mmol/L (22.0-30.0); Glucose 135 mg/dl (74-100)
[2020-11-21 08:14] LABS: Free T4 (Free Thyroxine) 0.67 ng/dl (0.78-2.19)
[2020-11-21 08:28] LABS: Thyroid Stimulating Hormone 2.11 uIU/mL (0.465-4.68)
== END ==
PROVIDERS: PCP Family Medicine; Visit Provider Urology
DX: R00.2 Palpitations (principal); R42 Dizziness and giddiness; R55 Syncope and collapse; H53.8 Other visual disturbances; I10 Essential (primary) hypertension; I63.9 Cerebral infarction, unspecified; R00.1 Bradycardia, unspecified
CPT/HCPCS: 36415; 70450; 80048; 84439; 84443; 93306; 93880

== ENCOUNTER 2021-01-31 15:13 | Emergency (ER) | payer BC, SELFPAY ==
[2021-01-31] VITALS (7 sets, daily range): BP systolic 161–193; BP diastolic 71–87; PULSE 49–55; RESP 16; TEMP 36.6; O2SAT 98–99; BMI 41.1; BMI 42.2
--- NOTE | 2021-01-31 15:07 | ECG_ITS ---
APPROVED REPORT Exam: Resting ECG HR:52 bpm ECG Measurements Heart Rate 52 AXES QRSd 78 QRS 41 QT 438 T 50 QTc 407 Conclusion Junctional rhythm Abnormal ECG Electronically signed by : Dillan Quinn, 01/31/2021 17:33:24
--- NOTE | 2021-01-31 15:15 | HMH.EDGENADL ---
ED Disposition Clinical Impression: Headache Qualifiers: Headache type: unspecified Headache chronicity pattern: unspecified pattern Intractability: not intractable Qualified Code(s): R51.9 - Headache, unspecified Disposition: Home, Self-Care Condition on Discharge: Good Instructions: DI for Migraine Additional Instructions: Please follow-up with primary care doctor for further management of migraines. Return immediately if recurrent headaches, neurologic deficits, vision changes, or other new concerning symptoms. - Critical Care Critical Care Time: No Attestation: On , the high probability of a clinically significant, sudden or life threatening deterioration of the following system(s) required my full and direct attention, intervention and personal management. The time I documented below is in addition to time spent performing reported procedures but includes the following listed in this critical care notation. Medical Decision Making - Medical Records Medical records reviewed: Yes: I reviewed the patient's medical records. - Yony Inquiry Pt receiving controlled substance: No Vital Signs: 01/31/21 15:14 01/31/21 16:22 01/31/21 16:31 Temperature 97.8 F Temperature Source Oral Pulse Rate 51 L 50 L Pulse Rate [Radial] 55 L Respiratory Rate 16 Blood Pressure 176/79 H 179/71 H Blood Pressure [Right Arm] 193/87 H Blood Pressure Mean 98 91 Blood Pressure Mean [Right Arm] 122 Blood Pressure Position [Right Arm] Sitting 02 Sat by Pulse Oximetry 98 98 Oxygen Delivery Method Room Air 01/31/21 17:52 01/31/21 18:03 Temperature Temperature Source Pulse Rate 55 L 50 L Pulse Rate [Radial] Respiratory Rate Blood Pressure 166/74 H 161/75 H Blood Pressure [Right Arm] Blood Pressure Mean 84 101 Blood Pressure Mean [Right Arm] Blood Pressure Position [Right Arm] 02 Sat by Pulse Oximetry 99 99 Oxygen Delivery Method - Lab Data Lab Results 01/31/21 15:25: Sodium 137, Potassium 4.2, Chloride 103, Carbon Dioxide 26, Anion Gap 12.2, BUN 12, Creatinine 0.70, Estimated Creat Clear 50, Estimated GFR 85, Est GFR ( Amer) 102, Glucose 123 H, Calcium 9.1, Total Bilirubin 0.5, AST 36, ALT 25, Alkaline Phosphatase 93, Troponin I < 0.01, Total Protein 7.8 D, Albumin 4.4, Globulin 3.4 H, Albumin/Globulin Ratio 1.3 01/31/21 15:40: WBC 9.5, RBC 4.66, Hgb 14.3, Hct 42.6, MCV 91.3, MCH 30.7, MCHC 33.6, RDW 13.7, Plt Count 252, MPV 8.5, Neut % (Auto) 55.7, Lymph % (Auto) 34.9, Dougherty % (Auto) 6.2, Eos % (Auto) 2.5, Baso % (Auto) 0.7, Neut # (Auto) 5.3, Lymph # (Auto) 3.3, Dougherty # (Auto) 0.6, Eos # (Auto) 0.2, Baso # (Auto) 0.1 01/31/21 15:40: PT 10.8, INR 0.91, APTT 25.0 Result diagrams: 01/31/21 15:40 01/31/21 15:25 Orders (Tests/Meds): ED MEDICATIONS Discontinued Medications Generic Name Dose Route Start Last Admin Trade Name Freq PRN Reason Stop Dose Admin Diphenhydramine HCl 25 mg 01/31/21 15:16 01/31/21 15:43 Diphenhydramine 50mg/Ml Vial IV 01/31/21 15:17 Not Given ONCE ONE Lactated Ringer's 1,000 mls @ 999 mls/hr 01/31/21 15:30 01/31/21 15:27 Lactated Ringer's 1000 Ml Bag IV 01/31/21 16:30 999 mls/hr .Q1H1M GIO Administration Iopamidol 100 ml 01/31/21 16:09 01/31/21 16:10 Iopamidol-370 (76%);100ml Bottle IV 01/31/21 16:10 100 ml ONCE ONE Administration Prochlorperazine Edisylate 10 mg 01/31/21 15:16 01/31/21 15:27 Prochlorperazine 10mg/2ml Vial IV 01/31/21 15:17 10 mg ONCE ONE Administration Sodium Chloride 50 ml 01/31/21 16:09 01/31/21 16:10 0.9 % Sodium Chloride 50 Ml Vial IV 01/31/21 16:10 50 ml ONCE ONE Administration Sodium Chloride 10 ml 01/31/21 16:09 01/31/21 16:10 Sodium Chloride 0.9% 10ml Syr (Rad Only) IV 01/31/21 16:10 10 ml ONCE ONE Administration ORDERS Category Date Time Status CT angio head Stat Cat Scan 01/31/21 15:[address] angio neck Stat Cat Scan 01/31/21 15:16 Taken
--- NOTE | 2021-01-31 15:16 | CT_ITS ---
Procedure: CT ANGIO NECK CLINICAL HISTORY: headache with episode of disorientation COMPARISON: CT CT ANGIO NECK from 09/03/[address] HEAD/BRAIN WO CON from 01/31/[address] ANGIO HEAD from 01/31/2021 TECHNIQUE: IV Contrast: 100ml Isovue 370 Axial images obtained with sagittal and coronal reformats. All CT scans at the facility use one or more dose reduction, viz: automated exposure control, ma/kV adjustment per patient size (including targeted exams where dose is matched to indication, i.e. head), or iterative reconstruction technique. FINDINGS: Arterial opacification is somewhat less than optimal. CTA neck: Tortuous great vessels with no obvious stenosis. The proximal aspect of the right common carotid is not well delineated due to overlying artifact from the contrast within the superior vena cava. Calcific plaque is present at the proximal aspect of the right ICA with 40 percent stenosis. No significant stenosis or occlusion of the mid distal right ICA. Calcific plaque in the left carotid bulb without significant stenosis. No obvious stenosis or occlusion of the vertebrals. The left vertebral is dominant. Proximal aspect of the right vertebral is not well delineated. CTA head: No dissection or significant intracranial stenosis or occlusion. 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 The posterior cerebral arteries and superior cerebellar arteries emanate from this area of dilatation. This does not appear significantly changed. No AVM apparent. Calcific plaque is present within the cavernous portion of both ICAs without significant stenosis. Approximately 40 percent stenosis of the clinoid portion of the right ICA. No enhancing lesions apparent IMPRESSION: 1. No significant carotid stenosis, occlusion, or dissection. 2. 40 percent stenosis of the proximal right ICA and 40 percent stenosis of the clinoid portion of the right ICA 3. 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 Dictated by: Kevin Grant MD 02/01/2021 09:49 Kevin Grant MD in [facility] 02/01/2021 09:49
--- NOTE | 2021-01-31 15:16 | CT_ITS ---
PROCEDURE: CT HEAD/BRAIN WO CON CLINICAL INDICATION: headache with episode of disorientation COMPARISON: CT CT HEAD/BRAIN WO CON from 11/21/2020 TECHNIQUE: Axial images obtained. All CT scans at the facility use one or more dose reduction, viz: automated exposure control, ma/kV adjustment per patient size (including targeted exams where dose is matched to indication, i.e. head), or iterative reconstruction technique. FINDINGS: No midline shift, mass effect, intracranial hemorrhage, hydrocephalus, or extra-axial fluid collection is evident. The calvarium has an unremarkable appearance. No mastoid effusion. No sinus air-fluid level. IMPRESSION: No acute intracranial finding Dictated by: Kevin Grant MD 01/31/2021 16:23 Kevin Grant MD in [facility] 01/31/2021 16:23
[2021-01-31 15:43] LABS: Chloride 103 mmol/L (98-107); Sodium 137 mmol/L (136-145)
[2021-01-31 15:44] LABS: Potassium 4.2 mmoL/L (3.5-5.1)
[2021-01-31 15:46] LABS: Alanine Aminotransferase 25 U/L (12-78); Alkaline Phosphatase 93 U/L (38-126); Aspartate Amino Transferase 36 U/L (14-36); Bilirubin,Total 0.5 mg/dl (0.2-1.3); Blood Urea Nitrogen 12 mg/dl (7-17); Creatinine Clearance Estimated 50 mL/min (50-200); Estimated Glomerular Filt Rate 85 ml/min (>60); GFR (African American) 102 ML/MIN (>60)
[2021-01-31 15:47] LABS: Albumin Level 4.4 g/dl (3.5-5.0); Albumin/Globulin Ratio 1.3 (1.1-1.8); Anion Gap 12.2 mEq/L (5-15); Calcium 9.1 mg/dl (8.4-10.2); Carbon Dioxide 26 mmol/L (22.0-30.0); Globulin 3.4 g/dL (1.3-3.2); Glucose 123 mg/dl (74-100); Total Protein,Serum 7.8 g/dl (6.3-8.2)
[2021-01-31 15:50] LABS: Basophils # 0.1 K/mm3 (0-0.2); Basophils % 0.7 % (0.1-2.0); Eosinophils # 0.2 K/mm3 (0.0-0.4); Eosinophils % 2.5 % (0.1-12.0); Hematocrit 42.6 % (37.0-47.0); Hemoglobin 14.3 g/dL (12.2-16.2); Lymphocytes # 3.3 K/mm3 (0.7-4.5); Lymphocytes % 34.9 % (10-50); Mean Corpuscular HGB Conc 33.6 g/dL (31.8-35.4); Mean Corpuscular Hemoglobin 30.7 pg (27.0-31.2); Mean Corpuscular Volume 91.3 fl (81-99); Mean Platelet Volume 8.5 fl (7.4-10.4); Monocytes # 0.6 K/mm3 (0.1-1.0); Monocytes % 6.2 % (1.7-9.3); Neutrophils # 5.3 K/mm3 (1.8-7.8); Neutrophils % 55.7 % (37.0-80.0); Platelet Count 252 K/mm3 (142-424); Red Blood Count 4.66 M/mm3 (4.20-5.40); Red Cell Distribution Width 13.7 % (11.5-17.5); White Blood Count 9.5 K/mm3 (4.8-10.8)
--- NOTE | 2021-01-31 15:52 | PC.NURSE ---
pt going to rad
--- NOTE | 2021-01-31 15:53 | PC.NURSE ---
Pt to rad.
[2021-01-31 16:08] LABS: INR 0.91 (0.9-1.1); Prothrombin Time 10.8 seconds (10.1-12.5)
[2021-01-31 16:14] LABS: Troponin I < 0.01 ng/ml (0.00-0.034)
--- NOTE | 2021-01-31 16:22 | PC.NURSE ---
patient vision at baseline 20/20. MADE AWARE
--- NOTE | 2021-01-31 17:36 | PC.NURSE ---
[facility] report given to
--- NOTE | 2021-01-31 17:52 | PC.NURSE ---
Addendum entered by Kolby Nieto, EMT-P 01/31/21 17:53: Elba in lab notified. Original Note: MD advised to cancel repeat troponin.
--- NOTE | 2021-01-31 18:51 | PC.NURSE ---
at bedside updating pt.
--- NOTE | 2021-01-31 18:55 | PC.NURSE ---
family at bedside
== END 2021-01-31 18:58 | disposition home or self-care (01) ==
PROVIDERS: Emergency Provider Emergency Medicine; PCP Family Medicine
DX: R51.9 Headache, unspecified (principal); I10 Essential (primary) hypertension; E03.9 Hypothyroidism, unspecified; Z79.899 Other long term (current) drug therapy
CPT/HCPCS: 70450; 70496; 70498; 80053; 84484; 85025; 85610; 85730; 93005; 96365; 99282; Q9967

== ENCOUNTER → 2021-04-10 07:07 | Outpatient (CLI) | payer BC, SELFPAY ==
[2021-04-10 07:37] LABS: Hemoglobin A1C 5.9 % (4.0-6.0)
[2021-04-10 07:44] LABS: Cholesterol 178 mg/dl (140-200); HDL Cholesterol 45 mg/dl (40-60); Triglycerides 122 mg/dl (30-150); VLDL Cholesterol 24 mg/dL (0-40)
[2021-04-10 07:55] LABS: Direct LDL Cholesterol 121.78 mg/dL (100-129)
== END ==
PROVIDERS: Visit Provider Specialist
DX: R73.9 Hyperglycemia, unspecified (principal); E78.5 Hyperlipidemia, unspecified
CPT/HCPCS: 36415; 80061; 83036

== ENCOUNTER → 2021-05-28 11:53 | Outpatient (CLI) | payer BC, SELFPAY ==
--- NOTE | 2021-05-28 | CA_ITS ---
APPROVED REPORT Exam: Pharmacologic Technologist: Wendy Farah, Ht: 5 ft 5 in Wt: 254 lbs BSA: 2.19 m2 HR: 46 bpm BP: 165/63 mmHg Indications: Chest pain Stress Test Details Test: LEXISCAN HR Resting HR: 46 bpm Max Heart Rate (APMHR): 156.941009 bpm Max HR Achieved: 81 bpm Target HR (85% APMHR): 132.981613 bpm % of APMHR: 51.92 Recovery HR: 52 bpm BP Resting BP: 165/63 mmHg Max BP: 184/82 mmHg Recovery BP: 154.0/70.0 mmHg ECG Clinical Reason for Termination: Completed protocol Stress Symptoms: Dyspnea Exercise duration: 04:03 min Highest Stage Achieved: Exercise capacity: 1.0 METs Stress ECG Conclusion Denies chest pain - reported SOA at peak infusion - resolved in recovery. No ectopy. Less than 1.[address] depression. Images to follow. Test Summary REST . . . . . . . Resting REST 09:03 . . 46 . 165/ 63 . . Stage 1 . . . . . . . Myoview Injected Stage 1 01:00 . . 72 . . . . Stage 2 01:00 . . 66 . 184/ 82 . . Stage 3 01:00 . . 58 . . . . Stage 4 01:00 . . 57 . 167/ 75 . . Stage 4 01:03 . . 57 . 167/ 75 . Stop exercise at 04:03 RECOVERY 01:00 . . 52 . 168/ 72 . . RECOVERY 02:00 . . 54 . 161/ 69 . . RECOVERY 03:00 . . 51 . 161/ 69 . . RECOVERY 03:51 . . 54 . 154/ 70 . . Electronically signed by : Nba Marte MD 05/28/2021 18:11:32
--- NOTE | 2021-05-28 11:54 | NM_ITS ---
APPROVED REPORT Exam: Nuclear Stress Test Indication: HTN, FM HX, C.P., SOB, PALPITATIONS Patient Location: Outpatient Stress Tech: Nuris Jones [place] Tech:Kathia Locke, ARRT, RT (R)(N) Ht: 5 ft 5 in Wt: 254 lbs Bra Size: DD HR: 46 bpm BP: 165/63 mmHg BSA: 2.19 m2 BMI: 42.2 History: HTN, FM HX, C.P., SOB, PALPITATIONS Procedure: Patient received a 0.4 mg of intravenous Lexiscan, resting heart rate 46 bpm, resting blood pressure 165/63 mmHg, with Lexiscan maximum heart rate achived was 66 bpm which is Less than 85 % of the maximum predicted heart rate and blood pressure was 184/82 mmHg. Electrocardiogram Resting electrocardiogram shows sinus rhythm, with Lexiscan there is less than 1.[address] segment depression noted from the baseline EKG. The EKG portion of the Lexiscan is nondiagnostic. Cardiac Stress and Resting SPECT Images: Cardiac Stress and Resting SPECT images were obtained using technetium 99m Myoview 32.5 mCi stress and 10.59 mCi at rest. Gated SPECT for analysis of segmental wall motion and calculation of the ejection fraction also done, prone images were also obtained. Cardiac stress and resting SPECT images show uniform myocardial activity without segmental perfusion abnormality, computer derived ejection fraction is 62% with no regional wall motion abnormality, right ventricle is mildly enlarged with normal contractility. Conclusion: 1. The EKG portion of the Lexiscan is nondiagnostic. 2. No scintigraphic evidence of reversible ischemia seen, compared ejection fraction 62% with no regional wall motion abnormality, right ventricle is mildly enlarged with normal contractility. 3. Likely normal Lexiscan Myoview study. Electronically signed by : Nba Marte MD 05/28/2021 18:50:52
--- NOTE | 2021-05-28 13:32 | HMH.ITSHM ---
Current Home Medications as stated by this patient Mindy Berman or billing representative. []UBROGEPANT SPIRONOLACTONE PROPRANOLOL POTASSIUM FUROSEMIDE
== END ==
PROVIDERS: PCP Family Medicine; Visit Provider Nurse Practitioner Family
DX: R06.02 Shortness of breath (principal); R07.9 Chest pain, unspecified; G45.9 Transient cerebral ischemic attack, unspecified; I63.9 Cerebral infarction, unspecified; I10 Essential (primary) hypertension; R00.1 Bradycardia, unspecified; Z86.79 Personal history of other diseases of the circulatory system
CPT/HCPCS: 78452; 93017; A9502; J2785

== ENCOUNTER → 2021-06-05 13:15 | Outpatient (CLI) | payer BC, SELFPAY | PROVIDERS: PCP Family Medicine; Visit Provider Nurse Practitioner Family | DX: G47.33 Obstructive sleep apnea (adult) (pediatric) (principal); R06.83 Snoring; R40.0 Somnolence | CPT/HCPCS: G0399 ==

== ENCOUNTER → 2021-06-27 12:03 | Outpatient (CLI) | payer BC, SELFPAY | PROVIDERS: PCP Family Medicine; Visit Provider Nurse Practitioner | DX: Z20.822 Contact with and (suspected) exposure to COVID-19 (principal) | CPT/HCPCS: C9803; U0003; U0005 ==

== ENCOUNTER → 2021-07-02 12:38 | Outpatient (CLI) | payer BC, SELFPAY | PROVIDERS: PCP Family Medicine; Visit Provider Nurse Practitioner | DX: Z20.822 Contact with and (suspected) exposure to COVID-19 (principal) | CPT/HCPCS: C9803; U0003; U0005 ==

== ENCOUNTER → 2021-07-13 11:20 | Outpatient (CLI) | payer BC, SELFPAY ==
--- NOTE | 2021-07-13 11:24 | XR_ITS ---
PROCEDURE: XR CHEST 2V CLINICAL HISTORY: chest pain COMPARISON: CR CXR2V XR chest 2V from 10/14/[address] angio chest from 05/01/2019 CR XR CHEST PORTABLE from 09/03/2019 FINDINGS: The cardiomediastinal silhouette and pulmonary vascularity are within normal limits. The lungs are clear without infiltrates, suspicious nodules, or pleural effusions. No acute bony abnormalities. IMPRESSION: No acute findings. Dictated by: Kevin Grant MD 07/13/2021 12:53 Kevin Grant MD in [place] 07/13/2021 12:53
--- NOTE | 2021-07-13 11:25 | XR_ITS ---
PROCEDURE: XR HIP RT 2-3V W/PELVIS CLINICAL INDICATION: Pain in right hip COMPARISON: CR [id number] HIP LT 2-3V W/PELVIS IF PERFOR from 02/11/2017 FINDINGS: Status post total right hip replacement with good alignment. No obvious orthopedic complications. There has also been a left bipolar prosthesis placed with good alignment. IMPRESSION: Status post total right hip replacement and left hip hemiarthroplasty with no acute finding Dictated by: Kevin Grant MD 07/13/2021 12:53 Kevin Grant MD in [facility] 07/13/2021 12:53
== END ==
PROVIDERS: PCP Family Medicine; Referring Provider Physician Assistant; Visit Provider Family Medicine
DX: R07.9 Chest pain, unspecified (principal); M25.551 Pain in right hip
CPT/HCPCS: 71046; 73502

== ENCOUNTER → 2022-01-21 11:24 | Outpatient (CLI) | payer BC, SELFPAY ==
[2022-01-21 12:15] LABS: Basophils # 0.1 K/mm3 (0-0.2); Basophils % 1.4 % (0.1-2.0); Eosinophils # 0.2 K/mm3 (0.0-0.4); Eosinophils % 2.3 % (0.1-12.0); Hemoglobin 14.9 g/dL (12.2-16.2); Lymphocytes # 2.5 K/mm3 (0.7-4.5); Lymphocytes % 27.2 % (10-50); Mean Corpuscular Hemoglobin 31.1 pg (27.0-31.2); Mean Corpuscular Volume 94.1 fl (81-99); Mean Platelet Volume 9.6 fl (7.4-10.4); Monocytes # 0.6 K/mm3 (0.1-1.0); Monocytes % 6.5 % (1.7-9.3); Neutrophils # 5.7 K/mm3 (1.8-7.8); Neutrophils % 62.6 % (37.0-80.0); Platelet Count 266 K/mm3 (142-424); Red Blood Count 4.78 M/mm3 (4.20-5.40); Red Cell Distribution Width 13.5 % (11.5-17.5); White Blood Count 9.2 K/mm3 (4.8-10.8)
[2022-01-21 12:50] LABS: Alanine Aminotransferase 29 U/L (12-78); Albumin Level 3.9 g/dl (3.5-5.0); Alkaline Phosphatase 91 U/L (38-126); Anion Gap 10.7 mEq/L (5-15); Aspartate Amino Transferase 36 U/L (14-36); Bilirubin,Direct 0.1 mg/dl (0.0-0.4); Bilirubin,Indirect 0.3 mg/dL (0.0-0.9); Bilirubin,Total 0.4 mg/dl (0.2-1.3); Bilirubin,Unconjugated 0.3 mg/dL (0.0-1.1); Blood Urea Nitrogen 18 mg/dl (7-17); Calcium 8.7 mg/dl (8.4-10.2); Carbon Dioxide 25 mmol/L (22.0-30.0); Chloride 107 mmol/L (98-107); Chol/HDL Ratio 5.1 (1-3.5); Cholesterol 187 mg/dl (140-200); Estimated Glomerular Filt Rate 84 ml/min (>60); GFR (African American) 102 ML/MIN (>60); Glucose 114 mg/dl (74-100); HDL Cholesterol 37 mg/dl (40-60); Magnesium 1.8 mg/dl (1.6-2.3); Potassium 4.7 mmoL/L (3.5-5.1); Sodium 138 mmol/L (136-145); Total Protein,Serum 6.7 g/dl (6.3-8.2); Triglycerides 147 mg/dl (30-150); VLDL Cholesterol 29 mg/dL (0-40)
[2022-01-21 13:01] LABS: Direct LDL Cholesterol 122.31 mg/dL (100-129)
[2022-01-21 13:19] LABS: Thyroid Stimulating Hormone 0.26 uIU/mL (0.465-4.68)
[2022-01-21 13:31] LABS: Free T4 (Free Thyroxine) 0.71 ng/dl (0.78-2.19)
--- NOTE | 2022-01-21 15:19 | CT_ITS ---
FINAL REPORT TECHNIQUE: Axial CT images were performed through the head. Coronal reformatted images were submitted. This study was performed with techniques to keep radiation doses as low as reasonably achievable (ALARA). Individualized dose reduction techniques using automated exposure control or adjustment of mA and/or kV according to the patient's size were employed. CLINICAL HISTORY: encephalopathy, frequent migraines COMPARISON: 01/31/2021 FINDINGS: The ventricles are normal in size. There is no evidence of hemorrhage. There is no mass or edema identified. There is no abnormal extra-axial fluid seen. The sinuses are well aerated. IMPRESSION: No acute intracranial process. Reviewed, Interpreted and Dictated by Antoine Pritchard MD Transcribed by Neri Vallejo Authenticated by Antoine Pritchard MD on 01/21/2022 04:17:21 PM [facility]
== END ==
PROVIDERS: Physician Assistant; PCP Family Medicine; Visit Provider Specialist
DX: G43.919 Migraine, unspecified, intractable, without status migrainosus (principal); R41.82 Altered mental status, unspecified; R06.02 Shortness of breath; R00.1 Bradycardia, unspecified; I10 Essential (primary) hypertension; R53.83 Other fatigue; G47.33 Obstructive sleep apnea (adult) (pediatric)
CPT/HCPCS: 36415; 70450; 80048; 80061; 80076; 83735; 84439; 84443; 85025

== ENCOUNTER → 2022-06-05 10:48 | Outpatient (CLI) | payer MEDICARE, SELFPAY ==
[2022-06-05 11:37] LABS: Basophils # 0.1 K/mm3 (0-0.2); Basophils % 0.6 % (0.1-2.0); Eosinophils # 0.2 K/mm3 (0.0-0.4); Eosinophils % 1.6 % (0.1-12.0); Hematocrit 48.3 % (37.0-47.0); Hemoglobin 15.3 g/dL (12.2-16.2); Lymphocytes # 2.3 K/mm3 (0.7-4.5); Mean Corpuscular HGB Conc 31.7 g/dL (31.8-35.4); Mean Corpuscular Hemoglobin 30.3 pg (27.0-31.2); Mean Corpuscular Volume 95.4 fl (81-99); Mean Platelet Volume 8.8 fl (7.4-10.4); Monocytes # 0.6 K/mm3 (0.1-1.0); Monocytes % 4.8 % (1.7-9.3); Neutrophils # 10.1 K/mm3 (1.8-7.8); Neutrophils % 75.9 % (37.0-80.0); Platelet Count 290 K/mm3 (142-424); Red Blood Count 5.06 M/mm3 (4.20-5.40); Red Cell Distribution Width 13.2 % (11.5-17.5); White Blood Count 13.3 K/mm3 (4.8-10.8)
[2022-06-05 12:49] LABS: Alanine Aminotransferase 58 U/L (12-78); Albumin Level 3.2 g/dl (3.5-5.0); Albumin/Globulin Ratio 1.2 (1.1-1.8); Alkaline Phosphatase 118 U/L (38-126); Anion Gap 10.9 mEq/L (5-15); Aspartate Amino Transferase 36 U/L (14-36); Blood Urea Nitrogen 11 mg/dl (7-17); Calcium 8.7 mg/dl (8.4-10.2); Carbon Dioxide 28 mmol/L (22.0-30.0); Chloride 103 mmol/L (98-107); Estimated Glomerular Filt Rate 84 ml/min (>60); GFR (African American) 102 ML/MIN (>60); Globulin 2.6 g/dL (1.3-3.2); Glucose 166 mg/dl (74-100); Potassium 3.9 mmoL/L (3.5-5.1); Sodium 138 mmol/L (136-145); Total Protein,Serum 5.8 g/dl (6.3-8.2)
[2022-06-05 12:52] LABS: Bilirubin,Total < 0.1 mg/dl (0.2-1.3)
== END ==
PROVIDERS: PCP Family Medicine; Visit Provider Nurse Practitioner Family
DX: U09.9 Post COVID-19 condition, unspecified (principal)
CPT/HCPCS: 36415; 80053; 85025

== ENCOUNTER → 2022-06-18 10:47 | Outpatient (CLI) | payer MEDICARE, SELFPAY ==
--- NOTE | 2022-06-18 10:47 | CA_ITS ---
APPROVED REPORT EXAM: Comprehensive 2D, Doppler, and color-flow Echocardiogram [employer] Specialists: Katherine Beaver RT(R) Ht: 5 ft 5 in Wt: 255lbs BSA: 2.19 BP: 138/78 mmHg Indications: SOB, CP, palpitations, syncope, edema, bradycardia, ERIKA. 2D Dimensions LVOT 1.87 cm (M/F) 1.5-2.5 LA Volume 40.90 mL LA Volume Index 18.67 mL/m2 (M/F) 16-34 M-Mode Dimensions RVDd 2.93 cm (0.9-2.6) LA Diam 4.09 cm (1.9-4.0) LVDd 4.20 cm (3.5-5.7) Ao Diam 3.32 cm (2.0-3.7) LVDs 3.10 cm (3.5-5.7) IVSd 1.06 cm (0.6-1.1) PWd 1.02 cm (0.6-1.1) EF (Teich) 51.80% FS 26.20% EDV (Teich) 78.60 mL ESV (Teich) 37.90 mL LV Diastology E Decel Time 193.00 (160-240 msec) E/A Ratio 1.3 Mitral Valve MV E Max Valeriano. 96.00 (40-130 cm/s) MV A Velocity 73.00 (40-130 cm/s) E/A Ratio 1.32 MV Decel. Time 193.00 (160-240 ms) MV PHT 57.00 ms Left Ventricle Left atrium is mildly enlarged, left ventricle is normal size mild concentric left ventricular hypertrophy, estimated ejection fraction 55% with no regional wall motion abnormality, diastolic parameters are inconclusive. Right Ventricle Right atrium and right ventricle are normal size and contractility. Aortic Valve Aortic valve is minimally thickened and fibrosed there is no aortic stenosis aortic insufficiency. Mitral Valve Mitral valve is grossly normal, there is trace mitral regurgitation. Tricuspid Valve Tricuspid grossly normal, there is trace tricuspid regurgitation, tricuspid regurgitation jet velocity is inadequate for calculation of the right ventricular systolic pressure. Pulmonic Valve Pulmonic valve is poorly visualized. Great Vessels Aortic is normal size. Inferior vena cava is poorly visualized. Pericardium No significant pericardial effusion noted. Conclusion 1. Mildly enlarged atrium, normal left ventricular size, mild concentric left ventricular hypertrophy, estimated ejection fraction 55% with no regional wall motion abnormality, diastolic parameters are inconclusive. 2. Trace mitral and tricuspid regurgitation. 3. No significant pericardial effusion. 4. Inferior vena cava is poorly visualized. Electronically signed by : Nba Marte MD 06/18/2022 19:20:17
== END ==
PROVIDERS: PCP Family Medicine; Visit Provider Nurse Practitioner Family
DX: I10 Essential (primary) hypertension (principal); R07.9 Chest pain, unspecified; R60.9 Edema, unspecified
CPT/HCPCS: 93306

== ENCOUNTER → 2022-08-19 10:19 | Outpatient (CLI) | payer MEDICARE, SELFPAY ==
[2022-08-19 11:47] LABS: Anion Gap 13.6 mEq/L (5-15); Blood Urea Nitrogen 9 mg/dl (7-17); Calcium 9.2 mg/dl (8.4-10.2); Carbon Dioxide 29 mmol/L (22.0-30.0); Chloride 102 mmol/L (98-107); Estimated Glomerular Filt Rate 84 ml/min (>60); GFR (African American) 102 ML/MIN (>60); Glucose 122 mg/dl (74-100); Potassium 4.6 mmoL/L (3.5-5.1); Sodium 140 mmol/L (136-145)
== END ==
PROVIDERS: PCP Family Medicine; Visit Provider Physician Assistant
DX: G47.33 Obstructive sleep apnea (adult) (pediatric) (principal); I10 Essential (primary) hypertension; R06.02 Shortness of breath; R60.9 Edema, unspecified
CPT/HCPCS: 36415; 80048

== ENCOUNTER → 2022-09-06 07:29 | Outpatient (CLI) | payer MEDICARE, SELFPAY ==
--- NOTE | 2022-09-06 07:38 | MR_ITS ---
FINAL REPORT CLINICAL HISTORY: MEMORY LOSS, MIGRAINE, SCOTOMA RIGHT EYE family hx deminta memory loss x few months complex migraines left occipial pain when having mirgranes FINDINGS: Multiplanar MR imaging of the brain was performed without contrast. There is motion on some of the images which decreases the sensitivity of the exam. There is no evidence of intracranial hemorrhage or mass. The ventricular size is normal. There is no evidence of shift of the midline structures. No abnormal extra-axial fluid collection is identified. The posterior fossa and brainstem have an unremarkable appearance. No area of abnormal restricted diffusion is identified. Normal major vessel vascular flow voids are seen. IMPRESSION: Motion on some of the images. No acute intracranial abnormality. Reviewed, Interpreted and Dictated by Jorge Alberto Cooper III, MD Transcribed by Luiza Genao Authenticated and [facility]
== END ==
PROVIDERS: PCP Family Medicine; Visit Provider Family Medicine
DX: R41.3 Other amnesia (principal); G43.909 Migraine, unspecified, not intractable, without status migrainosus; H53.411 Scotoma involving central area, right eye
CPT/HCPCS: 70551

== ENCOUNTER 2022-10-08 10:55 | Emergency (ER) | payer MEDICARE, SELFPAY ==
--- NOTE | 2022-10-08 11:37 | EXP.UTC ---
Discharge Plan Disposition Patient Disposition: Home, Self-Care Condition: Good Prescriptions Prescriptions: New promethazine-DM 6.25-15 mg/5 mL Syrup 5 ml PO Q6H PRN (Reason: Cough) Qty: 240 0RF methylprednisolone 4 mg Tablets,Dose Pack 4 mg PO DIRECTED Qty: 21 0RF cefdinir 300 mg capsule 300 mg PO BID Qty: 20 0RF guaifenesin [Mucinex] 600 mg tablet extended release 12hr 600 - 1,200 mg PO BIDP PRN (Reason: Congestion) Qty: 30 0RF No Action levothyroxine 50 mcg capsule 50 mcg PO DAILY valsartan 160 mg tablet 160 mg PO DAILY Qty: 30 3RF furosemide [Lasix] 40 mg tablet 40 mg PO Q OTHER DAY Qty: 15 5RF potassium chloride 20 mEq tablet extended release 20 meq PO DAILY PRN (Reason: hypokalemia) Qty: 30 5RF propranolol 20 mg tablet See Rx Instructions .ROUTE .COMPLEX Qty: 45 5RF Dose Instruction: TAKE 1/2 TABLET BY MOUTH IN THE MORNING & TAKE ONE TABLET BY MOUTH AT BEDTIME daily DIRECTED Rx Instructions: TAKE 1/2 TABLET BY MOUTH IN THE MORNING & TAKE ONE TABLET BY MOUTH AT BEDTIME daily DIRECTED spironolactone 50 mg tablet See Rx Instructions .ROUTE .COMPLEX Qty: 90 3RF Dose Instruction: TAKE ONE TABLET BY MOUTH EVERY DAY Rx Instructions: TAKE ONE TABLET BY MOUTH EVERY DAY Aimovig Autoinjector 140 mg/mL auto-injector 140 mg SQ QMONTH Qty: 1 5RF Rx Instructions: first injection in clinic for training/education purposes Ubrelvy 100 mg tablet See Rx Instructions .ROUTE .COMPLEX Qty: 10 6RF Dose Instruction: TAKE 1 TABLET BY MOUTH AT ONSET OF MIGRAINE. MAY REPEAT ONCE AFTER 2 HOURS IF NEEDED -MAX DOSE 2 TABLETS IN 24 HOURS- Rx Instructions: TAKE 1 TABLET BY MOUTH AT ONSET OF MIGRAINE. MAY REPEAT ONCE AFTER 2 HOURS IF NEEDED -MAX DOSE 2 TABLETS IN 24 HOURS- Referrals Follow up/Referrals: Randell Delgado MD [Primary Care Provider] - See instructions Activity Restrictions/Add. Instructions Additional Instructions/Restrictions: Drink plenty of fluids. Take tylenol or ibuprofen for pain or fever. Take the medications as directed. Follow up with your regular doctor. GO TO THE ER FOR ANY WORSENING SYMPTOMS Don't start the oral steroids until tomorrow, since you had the shot here today. Clinical Impressions Clinical Impression: Acute bronchitis, Acute viral syndrome Instructions Patient Instructions: DI for Acute Bronchitis Discharge ED Provider: Kalin Huizar [facility] [place] HPI General Stated complaint: Bodyaches, headache, congestion, cough Time Seen by Provider: 10/08/22 11:37 History of Present Illness Provider Complaint: She states that she has had body aches, headache, congestion, cough for the past 2 days. Related Data Home Medications Medication Instructions Recorded Confirmed levothyroxine 50 mcg capsule 50 mcg PO DAILY 06/11/22 08/19/22 Previous Rx's Medication Instructions Recorded potassium chloride 20 mEq 20 meq PO DAILY PRN hypokalemia 12/07/20 tablet,extended release #30 tabs propranolol 20 mg tablet See Rx Instructions .Route 09/25/21 .COMPLEX #45 tabs spironolactone 50 mg tablet See Rx Instructions .Route 04/01/22 .COMPLEX #90 tabs valsartan 160 mg tablet 160 mg PO DAILY #30 tabs 06/11/22 furosemide 40 mg tablet (Lasix) 40 mg PO Q OTHER DAY edema #15 tabs 07/11/22 erenumab-aooe 140 mg/mL 140 mg SQ QMONTH chronic migraine 08/21/22 subcutaneous auto-injector #1 mL (Aimovig Autoinjector) ubrogepant 100 mg tablet (Ubrelvy) See Rx Instructions .Route 08/21/22 .COMPLEX #10 tabs cefdinir 300 mg capsule 300 mg PO BID #20 caps 10/08/22 guaifenesin 600 mg tablet, 600 - 1,200 mg PO BIDP PRN 10/08/22 extended release 12 hr (Mucinex) Congestion #30 tabs methylprednisolone 4 mg tablets in 4 mg PO DIRECTED #21 tabs 10/08/22 a dose pack promethazine-DM 6.25 mg-15 mg/5 mL 5 ml PO Q6H PRN Cough #240 mL 10/08/22 oral syrup Allergies Allergy/AdvRe
[2022-10-08 11:39] VITALS: BP 172/66; PULSE 74; RESP 19; TEMP 38.5; O2SAT 96; BMI 43.9
[2022-10-08 12:00] LABS: UTC Influenza A Antigen Negative (Negative); UTC Influenza B Antigen Negative (Negative); UTC Strep Screen (Rapid) Negative (Negative)
[2022-10-08 12:37] VITALS: BP 172/66; PULSE 74; RESP 19; TEMP 37.7
[2022-10-08 12:43] LABS: Adenovirus,PCR Not Detected (NotDetected); Bordetella Pertussis Not Detected (NotDetected); Chlamydophila Pneumoniae, PCR Not Detected (NotDetected); Coronavirus 19, PCR Not Detected (NotDetected); Coronavirus 229E Not Detected (NotDetected); Coronavirus NL63 Not Detected (NotDetected); Coronavirus OC43 Not Detected (NotDetected); Coronovirus HKU1,PCR Not Detected (NotDetected); Human Metapneumovirus Not Detected (NotDetected); Influenza A, PCR Not Detected (NotDetected); Influenza AH1, 2009 Not Detected (NotDetected); Influenza AH1, PCR Not Detected (NotDetected); Influenza AH3,PCR Not Detected (NotDetected); Influenza B, PCR Not Detected (NotDetected); Mycoplasma Pneumoniae, PCR Not Detected (NotDetected); Parainfluenza 1, PCR Not Detected (NotDetected); Parainfluenza 2, PCR Not Detected (NotDetected); Parainfluenza 3, PCR Not Detected (NotDetected); Parainfluenza 4, PCR Not Detected (NotDetected); Respiratory Syncytial Virus Not Detected (NotDetected); Rhinovirus/Enterovirus Not Detected (NotDetected)
== END 2022-10-08 12:42 | disposition home or self-care (01) ==
PROVIDERS: Emergency Provider Nurse Practitioner Family; PCP Family Medicine
DX: J20.9 Acute bronchitis, unspecified (principal)
CPT/HCPCS: 87581; 87632; 87798; 87804; 87880; 99212; C9803; G0463; U0003; U0005

== ENCOUNTER 2022-10-15 13:38 | Emergency (ER) | payer MEDICARE, SELFPAY ==
[2022-10-15 13:38] VITALS: BP 154/86; PULSE 70; RESP 19; TEMP 36.4; O2SAT 100; BMI 42.9
--- NOTE | 2022-10-15 14:39 | EXP.UTC ---
Discharge Plan Disposition Patient Disposition: Home, Self-Care Condition: Good Prescriptions Prescriptions: New fluticasone propionate [Flovent HFA] 44 mcg/actuation HFA aerosol inhaler 1 puff inhalation BID PRN (Reason: shortness of breath or wheezing) Qty: 10.6 0RF Rx Instructions: administer with spacer albuterol sulfate [Proventil HFA] 90 mcg/actuation HFA aerosol inhaler 1 inh inhalation Q6H PRN (Reason: shortness of breath or wheezing) Qty: 8.5 0RF prednisone [prednisone] 20 mg tablet 20 mg PO BID 5 Days Qty: 10 0RF No Action levothyroxine 50 mcg capsule 50 mcg PO DAILY valsartan 160 mg tablet 160 mg PO DAILY Qty: 30 3RF furosemide [Lasix] 40 mg tablet 40 mg PO Q OTHER DAY Qty: 15 5RF potassium chloride 20 mEq tablet extended release 20 meq PO DAILY PRN (Reason: hypokalemia) Qty: 30 5RF propranolol 20 mg tablet See Rx Instructions .ROUTE .COMPLEX Qty: 45 5RF Dose Instruction: TAKE 1/2 TABLET BY MOUTH IN THE MORNING & TAKE ONE TABLET BY MOUTH AT BEDTIME daily DIRECTED Rx Instructions: TAKE 1/2 TABLET BY MOUTH IN THE MORNING & TAKE ONE TABLET BY MOUTH AT BEDTIME daily DIRECTED spironolactone 50 mg tablet See Rx Instructions .ROUTE .COMPLEX Qty: 90 3RF Dose Instruction: TAKE ONE TABLET BY MOUTH EVERY DAY Rx Instructions: TAKE ONE TABLET BY MOUTH EVERY DAY Aimovig Autoinjector 140 mg/mL auto-injector 140 mg SQ QMONTH Qty: 1 5RF Rx Instructions: first injection in clinic for training/education purposes Ubrelvy 100 mg tablet See Rx Instructions .ROUTE .COMPLEX Qty: 10 6RF Dose Instruction: TAKE 1 TABLET BY MOUTH AT ONSET OF MIGRAINE. MAY REPEAT ONCE AFTER 2 HOURS IF NEEDED -MAX DOSE 2 TABLETS IN 24 HOURS- Rx Instructions: TAKE 1 TABLET BY MOUTH AT ONSET OF MIGRAINE. MAY REPEAT ONCE AFTER 2 HOURS IF NEEDED -MAX DOSE 2 TABLETS IN 24 HOURS- promethazine-DM 6.25-15 mg/5 mL Syrup 5 ml PO Q6H PRN (Reason: Cough) Qty: 240 0RF methylprednisolone 4 mg Tablets,Dose Pack 4 mg PO DIRECTED Qty: 21 0RF cefdinir 300 mg capsule 300 mg PO BID Qty: 20 0RF guaifenesin [Mucinex] 600 mg tablet extended release 12hr 600 - 1,200 mg PO BIDP PRN (Reason: Congestion) Qty: 30 0RF Referrals Follow up/Referrals: Randell Delgado MD [Primary Care Provider] - See instructions Activity Restrictions/Add. Instructions Additional Instructions/Restrictions: Start antibiotic today. Be sure to complete entire prescription even if feeling better Monitor temp. Tylenol every 4 hours as needed and / or ibuprofen every 6 hours as needed ( As long as your primary care physician has told you that it ok to take both. For fever/aches/pains ER if no less than 101 despite Tylenol or Motrin Humidifier/vaporizer or hot steamy shower Inhaler every 4-6 hours as needed like we discussed. If unsure how to use it, ask pharmacist to demonstrate how. Should help open airways and improve cough, wheezing, and shortness of breath Mucinex for your cough and cough suppressant only at night. Be sure to drink lots of water. *Start steroid tomorrow. Helps with inflammation therefore, cough and wheezing. Follow directions on the package. Reviewed side effects. Patient reports taking them before. Finish Cefdinir Follow up IMMEDIATELY for new or worsening of symptoms OR no noticeable improvement over the next 48-72 hours. 911 immediately for any life threatening symptoms such as chest pain or difficulty breathing Clinical Impressions Clinical Impression: Acute bronchitis Qualifiers: Bronchitis organism: unspecified organism Qualified Code(s): J20.9 - Acute bronchitis, unspecified Instructions Patient Instructions: Fluticasone Oral Inhalation, Prednisone Discharge ED Provider: Wendy Yancey [facility] [place] General Stated complaint: Bronchitis last week, worsening symptoms Mode of Arr
[2022-10-15 15:44] VITALS: BP 154/86; PULSE 70; RESP 19; TEMP 36.4; O2SAT 100
== END 2022-10-15 15:44 | disposition home or self-care (01) ==
PROVIDERS: Emergency Provider Nurse Practitioner; PCP Family Medicine
DX: J20.9 Acute bronchitis, unspecified (principal)
CPT/HCPCS: 99212; 99213; G0463

== ENCOUNTER 2022-11-27 13:00 | Outpatient (RCR) | payer MEDICARE, SELFPAY ==
--- NOTE | 2022-07-29 11:16 | HMH.PTOPWND ---
Rehab Outpt Wound Evaluation Rehab OP Wound Evaluation Start: 07/29/22 10:08 Freq: Status: Active Protocol: Document 07/29/22 11:05 EDY (Rec: 07/29/22 11:16 PHORNE [id number]) E-signed By Kenney Akers PT Subjective/History History History Pt is 67 yowf who presents with B LE edema, L worse than R, x several years, but worse for ~ 2 mos. She reports she was infected with COVID-19, and since that time feels her edema has worsened significantly. She reports increased pain in B LE with edema, as well. Pain is described as deep aching. 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 She also reports PMH of B CINDA, partial hysterectomy, CCY, EIRKA , and HTN. Subjective Subjective Currently Pain is 2/10, but at worst it reaches 9/10. 3+ pitting edema noted to the L ankle and foot with 2+ pitting to the L lower leg superior to her anterior wallis scar. Skin of the L LE if tight and shiny in appearance which would warrant CELINA being performed to rule out any PAD. Lymphedema Eval Classification of Lymphedema Secondary Lymphedema Yes Stemmer's sign Stemmer's Sign no Stage of Lymphedema Lymphedema stages Stage II (Pitting edema, increased fibrosis w/ decreased pitting) Skin Changes Dry Skin Yes Taut, Shiny Skin Yes: L LE Skin Folds Yes Redness Yes Discoloration of Skin Yes Other Changes Yes Pain Scale Pain Scale (0-10) 2 Radiation Therapy Has received radiation therapy no Chem
--- NOTE | 2022-08-28 10:32 | HMH.RHREAS ---
Rehab Reassessment Rehab OP Re-assessment Start: 08/28/22 10:26 Freq: Status: Active Protocol: Document 08/28/22 10:29 EDY (Rec: 08/28/22 10:32 PHOMILES [id number]) E-signed By Kenney Akers, PT Rehab Re-assessment Subjective Subjective Pt reports pain is currently 1 /10 in L lower leg. She feels more swollen today though. Objective Objective Notes TTP: L lower leg 2/4 Edema: 3+ pitting edema remains in L ankle and lower leg at mid-calf level. Lipodermatosclerosis noted in L gaitor area with mild erythema. Assessment Progress Assessment Slower Than Expected Assessment Notes Pt has shown improvement in L LE pain, but edema remains persistent with increased pitting again this date. Tenderness with palpation also remains problematic. Awaiting lymphedema compression pump for home use. Patient goals met ST,[address] LT,2,3,4,5,6,7 Revised Goals none Plan Plan Continue per initial POC Frequency of Therapy 2 x/wk Duration of therapy 4 wks Time and Billing Re-Eval Time 15 Re-Eval Billing Units 1 PHYSICIAN CERTIFICATION: I certify the specified therapy services for Mindy Berman are required, authorized, and reviewed every 30 days.
--- NOTE | 2022-10-01 14:54 | HMH.RHREAS ---
Rehab Reassessment Rehab OP Re-assessment Start: 08/28/22 10:26 Freq: Status: Active Protocol: Document 10/01/22 14:52 EDY (Rec: 10/01/22 14:54 PHOMILSE [id number]) E-signed By Kenney Akers, PT Rehab Re-assessment Subjective Subjective Pt continues to have 1/10 pain in B LE, less tenderness noted. I was a lot better, but I went to [place] yesterday and my legs swelled really bad. Objective Objective Notes TTP: L lower leg 1/4 Edema: 2+ pitting edema in L ankle and lower leg at mid- calf level this date. Lipodermatosclerosis noted in L gaitor area with minimal erythema. Assessment Progress Assessment Progressing as Expected Assessment Notes Continues to show fluctuations in edema of B LE. L LE with decreased tenderness, but erythema remains. Beginning to use her Lymphedema pump now. Patient goals met ST,2,3 Goals Not Met LT,2,3,4,5,6,7 Revised Goals none Plan Plan Continue per initial POC Frequency of Therapy 2 x/wk Duration of therapy 4 wks Time and Billing Re-Eval Time 15 Re-Eval Billing Units 1 PHYSICIAN CERTIFICATION: I certify the specified therapy services for Mindy Berman are required, authorized, and reviewed every 30 days.
--- NOTE | 2022-10-30 14:31 | HMH.RHREAS ---
Rehab Reassessment Rehab OP Re-assessment Start: 08/28/22 10:26 Freq: Status: Active Protocol: Document 10/30/22 14:28 [email or web address] (Rec: 10/30/22 14:30 PHORRAY [id number]) E-signed By Kenney Akers, PT Rehab Re-assessment Subjective Subjective I only have pain when I'm standing or walking for a long time. 0/10 pain this date. Objective Objective Notes TTP: L lower leg 1/4 Edema: 2+ pitting edema in L ankle only this date. Lipodermatosclerosis noted in L gaitor area with minimal erythema. R ankle with 1+ pititng edema at this time. Assessment Progress Assessment Progressing as Expected Assessment Notes Pt has shown overall improvements in edema, and progress is steady. She does intermittently have increased edema, usually with increased dependent positioning. Continues to need compression to aid edema reduction. Patient goals met ST,2,3 Goals Not Met LT,2,3,4,5,6,7 Revised Goals none Plan Plan Continue per initial POC Frequency of Therapy 2 x/wk Duration of therapy 4 wks Time and Billing Re-Eval Time 13 Re-Eval Billing Units 1 PHYSICIAN CERTIFICATION: I certify the specified therapy services for Mindy Berman are required, authorized, and reviewed every 30 days.
== END 2022-11-27 13:05 | disposition home or self-care (01) ==
LOC: PT 13:00
PROVIDERS: PCP Family Medicine; Visit Provider Physician Assistant
DX: I89.0 Lymphedema, not elsewhere classified (principal)
CPT/HCPCS: 97140; 97162; 97164

== ENCOUNTER → 2023-05-20 08:59 | Outpatient (CLI) | payer MEDICARE, SELFPAY ==
[2023-05-20 09:27] LABS: Basophils # 0.1 K/mm3 (0-0.2); Basophils % 0.6 % (0.1-2.0); Eosinophils # 0.2 K/mm3 (0.0-0.4); Eosinophils % 2.3 % (0.1-12.0); Hematocrit 43.8 % (37.0-47.0); Lymphocytes # 2.9 K/mm3 (0.7-4.5); Lymphocytes % 32.3 % (10-50); Mean Corpuscular Hemoglobin 29.4 pg (27.0-31.2); Mean Corpuscular Volume 91.7 fl (81-99); Mean Platelet Volume 8.5 fl (7.4-10.4); Monocytes # 0.5 K/mm3 (0.1-1.0); Monocytes % 5.6 % (1.7-9.3); Neutrophils # 5.3 K/mm3 (1.8-7.8); Neutrophils % 59.1 % (37.0-80.0); Platelet Count 273 K/mm3 (142-424); Red Blood Count 4.77 M/mm3 (4.20-5.40); Red Cell Distribution Width 13.7 % (11.5-17.5); White Blood Count 8.9 K/mm3 (4.8-10.8)
[2023-05-20 09:53] LABS: Alanine Aminotransferase 27 U/L (12-78); Albumin Level 3.5 g/dl (3.5-5.0); Alkaline Phosphatase 106 U/L (38-126); Anion Gap 7.8 mEq/L (5-15); Aspartate Amino Transferase 29 U/L (14-36); Bilirubin,Indirect 0.2 mg/dL (0.0-0.9); Bilirubin,Total 0.2 mg/dl (0.2-1.3); Bilirubin,Unconjugated 0.4 mg/dL (0.0-1.1); Blood Urea Nitrogen 15 mg/dl (7-17); Calcium 8.4 mg/dl (8.4-10.2); Carbon Dioxide 25 mmol/L (22.0-30.0); Chloride 112 mmol/L (98-107); Cholesterol 178 mg/dl (140-200); Estimated Glomerular Filt Rate 84 ml/min (>60); GFR (African American) 101 ML/MIN (>60); Glucose 127 mg/dl (74-100); HDL Cholesterol 44 mg/dl (40-60); Magnesium 1.9 mg/dl (1.6-2.3); Potassium 3.8 mmoL/L (3.5-5.1); Sodium 141 mmol/L (136-145); Total Protein,Serum 6.1 g/dl (6.3-8.2); Triglycerides 96 mg/dl (30-150); VLDL Cholesterol 19 mg/dL (0-40)
[2023-05-20 10:04] LABS: Direct LDL Cholesterol 111.86 mg/dL (100-129)
[2023-05-20 10:11] LABS: Free T4 (Free Thyroxine) 0.76 ng/dl (0.78-2.19)
[2023-05-20 10:23] LABS: Thyroid Stimulating Hormone 1.23 uIU/mL (0.465-4.68)
== END ==
PROVIDERS: PCP Family Medicine; Visit Provider Physician Assistant
DX: G45.9 Transient cerebral ischemic attack, unspecified (principal); G47.33 Obstructive sleep apnea (adult) (pediatric); I10 Essential (primary) hypertension; I89.0 Lymphedema, not elsewhere classified; R06.02 Shortness of breath
CPT/HCPCS: 36415; 80048; 80061; 80076; 83735; 84439; 84443; 85025

== ENCOUNTER → 2023-05-30 14:20 | Outpatient (CLI) | payer MEDICARE, SELFPAY ==
--- NOTE | 2023-05-30 14:25 | MR_ITS ---
FINAL REPORT CLINICAL HISTORY: LOWER BACK PAIN WITH BILATERAL LEG PAIN X 1 YEAR COMPARISON: 03/03/2018 FINDINGS: Multiplanar MR imaging of the lumbar spine was performed without contrast. On the sagittal T2-weighted images, disc degeneration is seen throughout. There is mild anterolisthesis of L4 on 5 and L5 on S1. The vertebral alignment is normal. There is no evidence of fracture. The conus has an unremarkable appearance. L1-2: There is no significant canal stenosis or neural foraminal narrowing. L2-3: An annular bulge and facet arthropathy are present. There is mild left neural foraminal narrowing. L3-4: An annular bulge and facet arthropathy are present. There is mild left neural foraminal narrowing. L4-5: An annular bulge and facet arthropathy are present. There is no significant canal stenosis or neural foraminal narrowing. L5-S1: An annular bulge and facet arthropathy are present. There is no significant canal stenosis or neural foraminal narrowing. IMPRESSION: Multilevel degenerative disc disease and spondylosis. Reviewed, Interpreted and Dictated by Jorge Alberto Cooper III, MD Transcribed by Jigna Lu Authenticated and [facility]
== END ==
PROVIDERS: PCP Family Medicine; Visit Provider Orthopaedic Surgery
DX: M54.50 Low back pain, unspecified (principal)
CPT/HCPCS: 72148; 76376

== ENCOUNTER → 2023-06-11 14:58 | Outpatient (CLI) | payer MEDICARE, SELFPAY ==
--- NOTE | 2023-06-11 15:02 | CA_ITS ---
APPROVED REPORT EXAM: Comprehensive 2D, Doppler, and color-flow Echocardiogram Plating Department Helper: Martita Elliott CRT Ht: 5 ft 5 in Wt: 268lbs BSA: 2.24 BP: 148/81 mmHg Indications: Shortness of Breath, CVA/TIA, Dyspnea, Peripheral Edema, Hyperlipidemia, Hypertension/HDD 2D Dimensions LVOT 1.80 cm (M/F) 1.5-2.5 M-Mode Dimensions RVDd 2.21 cm (0.9-2.6) LA Diam 2.08 cm (1.9-4.0) LVDd 3.39 cm (3.5-5.7) Ao Diam 4.30 cm (2.0-3.7) LVDs 2.53 cm (3.5-5.7) IVSd 2.50 cm (0.6-1.1) PWd 0.86 cm (0.6-1.1) EF (Teich) 51.20% FS 25.40% EDV (Teich) 47.10 mL TAPSE 1.75 (<1.7) ESV (Teich) 23.00 mL LV Diastology MED E' 6.40 (< 7 cm/sec) MED A' 10.30 cm/s LAT E' 9.60 (<10 cm/sec) LAT A' 10.80 cm/s Aortic Valve AO Peak GR. 6.60 mmHg Pulmonary Valve PV Peak Velocity 161.00 (50-150 cm/s) Tricuspid Valve TR P. Velocity 236.00 cm/s RAP Estimate 10.00 mmHg RVSP 32.20 mmHg Left Ventricle The left ventricle is normal size. The left ventricular systolic function is normal. The left ventricular ejection fraction is within the normal range. There is increased LV wall thickness. There is normal LV segmental wall motion. The left ventricular diastolic function is normal. LVEF is 55-60%. Right Ventricle The right ventricle is normal size. The right ventricular systolic function is normal. Atria The left atrium size is normal. The right atrium size is normal. There is no Doppler evidence of interatrial shunt. Aortic Valve The aortic valve annulus is thickened. The aortic valve leaflets are mildly thickened. There is no aortic valvular stenosis. Trace aortic regurgitation is present. Mitral Valve The mitral valve is normal in structure. No evidence of mitral valve stenosis. Trace mitral regurgitation. Tricuspid Valve The tricuspid valve leaflets are thin and pliable. Trace tricuspid regurgitation. RVSP is 20-25 mmHg. Pulmonic Valve The pulmonary valve is normal in structure. Trace pulmonic regurgitation. Great Vessels The aortic root is normal in size. The ascending aorta is normal in size. IVC is normal in size and collapses >50% with inspiration. Pericardium There is no pericardial effusion. Other Information Study Quality: Fair Conclusion Normal biventricular systolic function. No significant valvular stenosis or regurgitation. Electronically signed by : Molly Sultana, 06/13/2023 13:50:15
== END ==
PROVIDERS: PCP Family Medicine; Visit Provider Internal Medicine
DX: G45.9 Transient cerebral ischemic attack, unspecified (principal); G47.33 Obstructive sleep apnea (adult) (pediatric); I10 Essential (primary) hypertension; I50.30 Unspecified diastolic (congestive) heart failure; I89.0 Lymphedema, not elsewhere classified; R06.00 Dyspnea, unspecified; R60.9 Edema, unspecified
CPT/HCPCS: 93306

== ENCOUNTER → 2023-06-12 13:40 | Outpatient (CLI) | payer MEDICARE, SELFPAY ==
[2023-06-12 14:38] LABS: Basophils # 0.1 K/mm3 (0-0.2); Eosinophils # 0.2 K/mm3 (0.0-0.4); Eosinophils % 1.9 % (0.1-12.0); Hemoglobin 15.6 g/dL (12.2-16.2); Lymphocytes # 2.7 K/mm3 (0.7-4.5); Lymphocytes % 28.5 % (10-50); Mean Corpuscular HGB Conc 32.4 g/dL (31.8-35.4); Mean Corpuscular Hemoglobin 30.6 pg (27.0-31.2); Mean Corpuscular Volume 94.4 fl (81-99); Monocytes # 0.5 K/mm3 (0.1-1.0); Monocytes % 5.6 % (1.7-9.3); Platelet Count 255 K/mm3 (142-424); Red Blood Count 5.08 M/mm3 (4.20-5.40); Red Cell Distribution Width 13.8 % (11.5-17.5); White Blood Count 9.6 K/mm3 (4.8-10.8)
[2023-06-12 16:22] LABS: Chloride 103 mmol/L (98-107); Potassium 4.4 mmoL/L (3.5-5.1); Sodium 140 mmol/L (136-145)
[2023-06-12 16:25] LABS: Anion Gap 12.4 mEq/L (5-15); Blood Urea Nitrogen 13 mg/dl (7-17); Calcium 9.3 mg/dl (8.4-10.2); Carbon Dioxide 29 mmol/L (22.0-30.0); Estimated Glomerular Filt Rate 72 ml/min (>60); GFR (African American) 87 ML/MIN (>60); Glucose 140 mg/dl (74-100); Total Protein,Serum 6.6 g/dl (6.3-8.2)
[2023-06-12 16:26] LABS: Magnesium 2.1 mg/dl (1.6-2.3)
[2023-06-17 13:08] LABS: Immunoglobulin A, Qn 268 mg/dL (87-352); Immunoglobulin G, Qn 855 mg/dL (586-1602); Immunoglobulin M, Qn 114 mg/dL (26-217)
[2023-06-17 21:34] LABS: Albumin 3.6 g/dL (2.9-4.4); Alpha-1-Globulin 0.2 g/dL (0.0-0.4); Alpha-2-Globulin 0.8 g/dL (0.4-1.0); Gamma Globulin 0.8 g/dL (0.4-1.8); Protein, Total 6.7 g/dL (6.0-8.5)
[2023-06-18 09:09] LABS: Free Lambda Lt Chains 14.7
== END ==
PROVIDERS: PCP Family Medicine; Visit Provider Internal Medicine
DX: G47.33 Obstructive sleep apnea (adult) (pediatric); I50.30 Unspecified diastolic (congestive) heart failure; I89.0 Lymphedema, not elsewhere classified; R06.00 Dyspnea, unspecified; R60.9 Edema, unspecified; M54.9 Dorsalgia, unspecified; I63.9 Cerebral infarction, unspecified; I11.0 Hypertensive heart disease with heart failure; G45.8 Other transient cerebral ischemic attacks and related syndromes
CPT/HCPCS: 36415; 80048; 82784; 83735; 83883; 84155; 84165; 85025; 86334

== ENCOUNTER → 2023-06-17 10:48 | Outpatient (CLI) | payer MEDICARE, SELFPAY ==
[2023-06-19 12:14] LABS: Albumin, U 25.6 % (.); Albumin, U 35.9 % (.); Alpha-1-Globulin, U 3.7 % (.); Alpha-1-Globulin, U 7.1 % (.); Alpha-2-Globulin, U 12.2 % (.); Alpha-2-Globulin, U 15.4 % (.); Beta Globulin, U 23.9 % (.); Beta Globulin, U 29.7 % (.); Gamma Globulin, U 18.5 % (.); M-Spike, % Not Observed % (Not Observed); Prot,24hr calculated 234 mg/24 hr (30-150); Protein,Total,Urine 18.7 mg/dL (Not Estab.)
== END ==
PROVIDERS: PCP Family Medicine; Visit Provider Internal Medicine
DX: G47.33 Obstructive sleep apnea (adult) (pediatric); I50.30 Unspecified diastolic (congestive) heart failure; I89.0 Lymphedema, not elsewhere classified; M54.9 Dorsalgia, unspecified; R06.00 Dyspnea, unspecified; R60.9 Edema, unspecified; G45.8 Other transient cerebral ischemic attacks and related syndromes; I11.0 Hypertensive heart disease with heart failure
CPT/HCPCS: 84156; 84166; 86335

== ENCOUNTER → 2023-06-20 08:08 | Outpatient (CLI) | payer MEDICARE, SELFPAY ==
--- NOTE | 2023-06-20 08:08 | NM_ITS ---
APPROVED REPORT Computer Forensic Examiner: Procedure: 99mTc-PYP Cardiac Amyloidosis Imaging Clinical Indication: Heart failure, increased LV wall thickness Protocol: The patient received 25.3 mCi 99mTc-PYP intravenously. Planar and SPECT imaging was performed approximately 3 hours post injection. Planar images included anterior, left lateral and OLIVER-45 projections. Findings: Visual interpretation: Planar and SPECT images were reviewed The overall quality of the study was good. Semi quantitative SPECT findings showed a grade 0. Planar imaging demonstrates a heart to contralateral ratio of 1.1 (normal < 1.5, equivocal=1.2-1.4, abnormal 1.5). Conclusion 1. Overall, the quality of the study was good. 2. Semi quantitative SPECT findings showed grade 0. 3. Overall interpretation of the findings is not suggestive of ATTR amyloidosis. Electronically signed by : Molly Sultana MD 07/06/2023 17:45:31
== END ==
PROVIDERS: PCP Family Medicine; Visit Provider Internal Medicine
DX: G45.8 Other transient cerebral ischemic attacks and related syndromes (principal); G47.33 Obstructive sleep apnea (adult) (pediatric); I10 Essential (primary) hypertension; I89.0 Lymphedema, not elsewhere classified; M54.9 Dorsalgia, unspecified; R06.00 Dyspnea, unspecified; R60.9 Edema, unspecified; I50.30 Unspecified diastolic (congestive) heart failure
CPT/HCPCS: 78800

== ENCOUNTER → 2023-07-04 14:16 | Outpatient (CLI) | payer MEDICARE, SELFPAY ==
[2023-07-04 15:40] LABS: Iron 114 ug/dL (37-170)
[2023-07-04 16:30] LABS: Vitamin B12 338 pg/mL (239-931)
== END ==
PROVIDERS: PCP Family Medicine; Visit Provider Physician Assistant
DX: R06.00 Dyspnea, unspecified; R60.9 Edema, unspecified; I50.30 Unspecified diastolic (congestive) heart failure
CPT/HCPCS: 36415; 82607; 83540

== ENCOUNTER → 2023-08-25 10:09 | Outpatient (CLI) | payer MEDICARE, SELFPAY ==
[2023-08-25 10:41] LABS: Chloride 103 mmol/L (98-107); Potassium 3.6 mmoL/L (3.5-5.1); Sodium 137 mmol/L (136-145)
[2023-08-25 10:44] LABS: Anion Gap 9.6 mEq/L (5-15); Blood Urea Nitrogen 14 mg/dl (7-17); Carbon Dioxide 28 mmol/L (22.0-30.0); Estimated Glomerular Filt Rate 72 ml/min (>60); GFR (African American) 87 ML/MIN (>60)
[2023-08-25 10:45] LABS: Calcium 8.5 mg/dl (8.4-10.2); Glucose 134 mg/dl (74-100)
== END ==
PROVIDERS: PCP Family Medicine; Visit Provider Internal Medicine
DX: I11.0 Hypertensive heart disease with heart failure (principal); I50.30 Unspecified diastolic (congestive) heart failure; G47.33 Obstructive sleep apnea (adult) (pediatric); I89.0 Lymphedema, not elsewhere classified; M54.9 Dorsalgia, unspecified; R06.00 Dyspnea, unspecified; R53.83 Other fatigue
CPT/HCPCS: 36415; 80048

== ENCOUNTER → 2023-09-08 20:30 | Outpatient (CLI) | payer MEDICARE, SELFPAY | PROVIDERS: PCP Family Medicine; Visit Provider Nurse Practitioner Family | DX: G47.33 Obstructive sleep apnea (adult) (pediatric) (principal); I50.30 Unspecified diastolic (congestive) heart failure | CPT/HCPCS: 95811 ==

== ENCOUNTER → 2023-09-23 13:03 | Outpatient (CLI) | payer MEDICARE, SELFPAY ==
[2023-09-23 14:49] LABS: Anion Gap 8.7 mEq/L (5-15); Blood Urea Nitrogen 14 mg/dl (7-17); Calcium 8.3 mg/dl (8.4-10.2); Carbon Dioxide 28 mmol/L (22.0-30.0); Chloride 103 mmol/L (98-107); Estimated Glomerular Filt Rate 84 ml/min (>60); GFR (African American) 101 ML/MIN (>60); Glucose 91 mg/dl (74-100); Potassium 4.7 mmoL/L (3.5-5.1); Sodium 135 mmol/L (136-145)
== END ==
PROVIDERS: PCP Family Medicine; Visit Provider Internal Medicine
DX: G47.33 Obstructive sleep apnea (adult) (pediatric) (principal); I50.30 Unspecified diastolic (congestive) heart failure; I89.0 Lymphedema, not elsewhere classified; M54.9 Dorsalgia, unspecified; R60.9 Edema, unspecified
CPT/HCPCS: 36415; 80048

== ENCOUNTER 2023-09-26 10:00 | Outpatient (RCR) | payer MEDICARE, SELFPAY | END 2023-09-26 11:00 | disposition home or self-care (01) | LOC: PT 10:00 | PROVIDERS: PCP Family Medicine; Visit Provider Orthopaedic Surgery | DX: M43.16 Spondylolisthesis, lumbar region (principal) | CPT/HCPCS: 97010; 97012; 97014; 97035; 97110; 97140; 97163; 97164; 97530; 97535; G0283 ==

== ENCOUNTER 2024-01-19 11:34 | Outpatient (CLI) | payer MEDICARE, SELFPAY ==
--- NOTE | 2024-01-19 11:39 | XR_ITS ---
FINAL REPORT CLINICAL HISTORY: ACUTE RT KNEE PAIN felt pop last week. FINDINGS: Three views of the right knee reveal no evidence of fracture or dislocation. The bony alignment is normal. There are mild degenerative changes. There is no evidence of joint effusion. No localized soft tissue abnormality is identified. IMPRESSION: Degenerative changes with no acute abnormality identified. Reviewed, Interpreted and Dictated by Jorge Alberto Cooper III, MD Transcribed by Luiza Genao Authenticated and [facility]
== END 2024-01-19 23:59 ==
LOC: RAD 11:35
PROVIDERS: PCP Family Medicine; Visit Provider Family Medicine
DX: M25.561 Pain in right knee (principal)
CPT/HCPCS: 73562

== ENCOUNTER 2024-01-26 15:22 | Outpatient (CLI) | payer MEDICARE, SELFPAY ==
--- NOTE | 2024-01-26 15:23 | CA_ITS ---
APPROVED REPORT EXAM: Comprehensive 2D, Doppler, and color-flow Echocardiogram Critical Care Specialist: Katherine Beaver RT(R) Ht: 5 ft 5 in Wt: 259lbs BSA: 2.21 BP: 169/89 mmHg Indications: HTN, atypical CP, near syncope, fatigue, diastolic CHF 2D Dimensions LA Volume 38.00 mL LA Volume Index 17.19 mL/m2 (M/F) 16-34 EF AP4 65.20 % GL Strain -13.8 % M-Mode Dimensions RVDd 2.29 cm (0.9-2.6) LA Diam 4.00 cm (1.9-4.0) LVDd 3.74 cm (3.5-5.7) LVDs 2.76 cm (3.5-5.7) IVSd 0.98 cm (0.6-1.1) PWd 0.89 cm (0.6-1.1) EF (Teich) 52.20% FS 26.20% EDV (Teich) 59.60 mL ESV (Teich) 28.50 mL LV Diastology E Decel Time 183 (160-240 msec) E/A Ratio 1.0 Mitral Valve MV E Max Valeriano. 82.0 (40-130 cm/s) MV A Velocity 79.0 (40-130 cm/s) E/A Ratio 1.03 MV PHT 54.0 ms Tricuspid Valve TR P. Velocity 228.00 cm/s RAP Estimate 10.00 mmHg RVSP 30.90 mmHg Left Ventricle The left ventricle is normal size. The left ventricular systolic function is normal. The left ventricular ejection fraction is within the normal range. There is increased LV wall thickness. There is normal LV segmental wall motion. The left ventricular diastolic function is normal. LVEF is 55%. Right Ventricle The right ventricle is normal size. The right ventricular systolic function is normal. Atria The left atrium size is normal. The right atrium size is normal. There is no Doppler evidence of interatrial shunt. Aortic Valve The aortic valve is mildly thickened. There is no aortic valvular stenosis. No aortic regurgitation is present. Mitral Valve The mitral valve is normal in structure. No evidence of mitral valve stenosis. Trace mitral regurgitation. Tricuspid Valve The tricuspid valve leaflets are thin and pliable. Mild tricuspid regurgitation. RVSP is 20-25 mmHg. Pulmonic Valve The pulmonary valve is normal in structure. Mild pulmonic regurgitation. Great Vessels The aortic root is normal in size. The ascending aorta is normal in size. IVC is normal in size and collapses >50% with inspiration. Pericardium There is no pericardial effusion. Other Information Study Quality: Fair Conclusion Normal biventricular systolic function. Mild TR, mild PI. Electronically signed by : Molly Sultana MD 01/31/2024 14:44:04
== END 2024-01-26 23:59 ==
LOC: RT 15:23
PROVIDERS: PCP Family Medicine; Visit Provider Internal Medicine
DX: R73.03 Prediabetes (principal); I50.30 Unspecified diastolic (congestive) heart failure; R60.9 Edema, unspecified; G47.33 Obstructive sleep apnea (adult) (pediatric); R53.83 Other fatigue; I10 Essential (primary) hypertension; G45.9 Transient cerebral ischemic attack, unspecified; Z01.810 Encounter for preprocedural cardiovascular examination; M25.569 Pain in unspecified knee
CPT/HCPCS: 93306

== ENCOUNTER 2024-01-28 14:04 | Outpatient (CLI) | payer MEDICARE, SELFPAY ==
--- NOTE | 2024-01-28 14:08 | MR_ITS ---
FINAL REPORT CLINICAL HISTORY: ACUTE PAIN OF RIGHT KNEE COMPARISON: None FINDINGS: Multi planar MR imaging was performed of the right knee. The anterior cruciate ligament is rather thin but appears intact. The posterior cruciate ligament is intact. The quadriceps and patellar tendons are intact. There are full-thickness tears of the posterior horn of the medial meniscus best seen on images 15 and 16 of series 4 and of the anterior horn of the lateral meniscus best seen on images 5 and 6 of series 4. The medial and lateral collateral ligaments appear intact. The medial and lateral retinacula appear intact. There is no evidence of bone marrow edema or osteochondral defect. There are moderate hypertrophic changes of the medial and lateral joint margins. Small osteophytes are noted along the undersurface of the patella. There is a large fabella noted. There is a small joint effusion. There appears to be inflammation of the bursa superior to the lateral femoral condyle. IMPRESSION: Full-thickness tears anterior horn lateral meniscus and posterior horn medial meniscus. Moderate hypertrophic changes of osteoarthritis at the patellofemoral joint. Small joint effusion. Inflamed bursa consistent with bursitis. Reviewed, Interpreted and Dictated by Antoine Pritchard MD Transcribed by Florence August Authenticated and [facility]
== END 2024-01-28 23:59 | disposition home or self-care (01) ==
LOC: RAD 14:05
PROVIDERS: PCP Family Medicine; Visit Provider Family Medicine
DX: M25.561 Pain in right knee (principal); S83.272A Complex tear of lateral meniscus, current injury, left knee, initial encounter; S83.231A Complex tear of medial meniscus, current injury, right knee, initial encounter
CPT/HCPCS: 73721

== ENCOUNTER 2024-05-25 11:55 | Outpatient (CLI) | payer MEDICARE, SELFPAY ==
--- NOTE | 2024-05-25 11:59 | CA_ITS ---
FINAL REPORT TECHNIQUE: Color Doppler, duplex Doppler and compression sonography of the right lower extremity venous system was performed. CLINICAL HISTORY: S/P KNEE REPLACEMENT 2 WEEKS AGO,PAIN RT CALF AND LAT KNEE FINDINGS: There is no evidence of deep venous thrombosis from the level of the groin to the calf. The veins are patent and compressible. IMPRESSION: No evidence of deep venous thrombosis right lower extremity. Reviewed, Interpreted and Dictated by Jorge Alberto Cooper III, MD Transcribed by Jigna Lu Authenticated and . [facility]
== END 2024-05-25 23:59 | disposition home or self-care (01) ==
LOC: RT 11:57
PROVIDERS: PCP Family Medicine; Visit Provider Orthopaedic Surgery
DX: M79.604 Pain in right leg (principal); R60.1 Generalized edema; Z98.890 Other specified postprocedural states
CPT/HCPCS: 93971

== ENCOUNTER 2024-07-16 09:01 | Outpatient (CLI) | payer MEDICARE, SELFPAY ==
--- NOTE | 2024-07-16 09:05 | XR_ITS ---
FINAL REPORT CLINICAL HISTORY: SCREENING COMPARISON: None FINDINGS: Using L1-4, the bone mineral density of the spine is 1.092 g/cm2, corresponding to T-score of 0.4 which is within normal limits. Using the left forearm, the bone mineral density at 1/3 is 0.745 g/cm2, corresponding to a T-score of 0.8 which is within normal limits. NOTE: T-score: Standard deviation compared with peak bone mass of young adult mean. *Following the recommendations of the International Society of Bone densitometry, classification of hip BMD is based on the lower of two T-scores; total hip or femoral neck. IMPRESSION: Normal bone mineral density of the lumbar spine and hips. Reviewed, Interpreted and Dictated by Antoine Pritchard MD Transcribed by Florence August Authenticated and [facility]
== END 2024-07-16 23:59 | disposition home or self-care (01) ==
LOC: RAD 09:02
PROVIDERS: PCP Family Medicine; Visit Provider Family Medicine
DX: Z78.0 Asymptomatic menopausal state (principal)
CPT/HCPCS: 77080

== ENCOUNTER 2024-08-11 11:00 | Outpatient (RCR) | payer MEDICARE, SELFPAY | END 2024-08-11 23:59 | disposition home or self-care (01) | LOC: PT 11:00 | PROVIDERS: Visit Provider Orthopaedic Surgery | DX: M25.561 Pain in right knee (principal); Z96.651 Presence of right artificial knee joint; Z98.890 Other specified postprocedural states | CPT/HCPCS: 97110; 97140; 97163; 97164; 97530 ==

== ENCOUNTER 2024-09-16 10:00 | Outpatient (RCR) | payer MEDICARE, SELFPAY ==
--- NOTE | 2024-08-11 14:41 | HMH.PTOPWND ---
Rehab Outpt Wound Evaluation Rehab OP Wound Evaluation Start: 08/11/24 11:30 Freq: Status: Active Protocol: Document 08/11/24 14:27 EDY (Rec: 08/11/24 14:40 PHORNE [id number]) E-signed By Kenney Akers, PT Subjective/History History History This is the initial PT eval for Mindy Berman, 69 yowf who presents with c/o B LE increased edema x ~ 1-2 yrs with insidious onset of symptoms. She reports increased pain and tenderness in B lower legs as well. She reports intermittent feeling of burning sensation with increased edema. 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 Subjective Subjective Current pain is 0/10, at worst pain is 8/10 in B lower legs. TTP 3/4 B lower legs. 3+ pitting edema noted from mid- calf distally. New diagnosis of cancer in past 12 No months? Lymphedema Eval Classification of Lymphedema Secondary Lymphedema Yes Stemmer's sign Stemmer's Sign yes Stage of Lymphedema Lymphedema stages Stage II (Pitting edema, increased fibrosis w/ decreased pitting) Skin Changes Dry Skin Yes Skin Folds Yes Hyperkeratosis Yes Redness Yes Discoloration of Skin Yes Other Changes Yes Pain Scale Pain Scale (0-10) 8 Radiation Therapy Has received radiation therapy no Chemo Therapy Has received chemo therapy yes Affected Extremities Areas Affected by Lymphedema/Edema Right Lower Extremity,Left Lower Extremity Manual Lymphatic Drainage Treatment Area MLD Treatment Area Right Lower Extremity,Left Lower Extremity Wound Problems/Impairments Impairments Problems/Impairmments Palpation Tenderness,Impaired Walking,Impaired Standing, Impaired Household Care, Increased Edema,Lymphedema Present,Subjective C/O Pain, Impaired Self Care/Self Management Prognosis Rehab Potential Good Comment Skilled therapy services are indicated to reduce overall edema burden and return pt to PLOF. Clinical Impression Consistent with Diagnosis Yes Short Term Goals Number of Weeks 2 Decreased Palpation Tenderness Yes: 2/4 B lower legs Decrease Edema Yes: 2+ pitting edema B Lower legs Decrease Subjective C/O Pain Yes: 5/10 at worst B lower legs Patient to Understand Lymphedema Yes Treatment and Exercises Decrease Girth Measurments by (cm) Yes: B LE total by 5 cm ea Eddy Current Inspector Goals Number of Weeks 4 Decreased Palpation Tenderness Yes: 1/4 B lower legs Decrease Edema Yes: 1+ pitting edema to B lower legs Decrease Subjective C/O Pain Yes: 3/10 at worst B lower legs Patient to be Ind w/ HEP Yes Patient to Adhere Lymphedema Precautions Yes Decrease Girth Measurments by (cm) Yes: B LE total by 20 cm ea Outpatient Therapy Plan of Care Treatment Plan May Include Therapeutic Exercise Including Home Yes Exercise Program Manual Therapy Techniques Yes Neuromuscular Re-education Yes Therapeutic Activities to Return to Yes Previous Functional/Work Level ADL/Self Care Education Yes Orthotics/Bracing/Splinting Yes Manual Lymphatic Drainage Yes Eval/Re-Eval Yes Frequency Times per week 2 Duration Number of Weeks 4 Addendums This patient is a candidate for social No or vocational rehab? Patient/Guardian verbally acknowledges Yes understanding of treatment program and consents to further treatment? Patient/Guardian verbally acknowledges Yes understanding of diagnosis, prognosis and goals for treatment? Eval Complexity PT Charges 71903 - High Complexity PHYSICIAN CERTIFICATION: I certify the specified therapy services for Mindy Berman are required, authorized, and reviewed every 30 days.
--- NOTE | 2024-09-16 10:53 | HMH.RHREAS ---
Rehab Reassessment Rehab OP Re-assessment Start: 08/11/24 11:30 Freq: Status: Active Protocol: Document 09/16/24 10:45 EDY (Rec: 09/16/24 10:53 EDY [id number]) E-signed By Kenney Akers, PT Rehab Re-assessment Subjective Subjective Pt reports she feels much better overall with her B LE edema. They have both been less swollen and stayed that way for the last 2 or 3 days. Pt last appointment was ~ 2 wks ago and edema has not increased over that time frame with home management. Objective Objective Notes Circumferential Measurements: R LE total is 199.2 cm which is -21.5 cm since IE L LE total is 198.2 cm which is -15.4 cm since IE TTP: 0/4 B lower legs this date Edema: no pitting edema this date Pain: currently 0/10, at worst 2/10 B LE. Assessment Progress Assessment Progressing as Expected Assessment Notes Pt has shown significant reduction of B LE edema based on circumferential measurements. Much improved overall mobility also. She is appropriate for d/c to independent home program at this timeand has appropriate compression garments for daily use to maintain her current condition. Patient goals met ST/5 LT/6 Plan Plan Will d/c to independent home program at this time. Frequency of Therapy 0 Duration of therapy 0 Time and Billing Re-Eval Time 11 Re-Eval Billing Units 0 Charge for PT reassessment? No PHYSICIAN CERTIFICATION: I certify the specified therapy services for Mindy Berman are required, authorized, and reviewed every 30 days.
== END 2024-09-16 23:59 | disposition home or self-care (01) ==
LOC: PT 10:00
PROVIDERS: PCP Family Medicine; Visit Provider Family Medicine
DX: I89.0 Lymphedema, not elsewhere classified (principal)
CPT/HCPCS: 97140; 97163

== ENCOUNTER 2024-12-31 08:10 | Outpatient (CLI) | payer MEDICARE, OTHER, SELFPAY ==
[2024-12-31 09:09] LABS: Basophils # 0.1 K/mm3 (0-0.2); Basophils % 0.5 % (0.1-2.0); Eosinophils # 0.1 K/mm3 (0.0-0.4); Eosinophils % 1.1 % (0.1-12.0); Hematocrit 48.5 % (37.0-47.0); Hemoglobin 16.2 g/dL (12.2-16.2); Lymphocytes # 2.6 K/mm3 (0.7-4.5); Lymphocytes % 22.2 % (10-50); Mean Corpuscular HGB Conc 33.4 g/dL (31.8-35.4); Mean Corpuscular Volume 92.9 fl (81-99); Mean Platelet Volume 11.2 fl (7.4-10.4); Monocytes # 0.6 K/mm3 (0.1-1.0); Monocytes % 5.4 % (1.7-9.3); Neutrophils # 8.3 K/mm3 (1.8-7.8); Neutrophils % 70.5 % (37.0-80.0); Platelet Count 245 K/mm3 (142-424); Red Blood Count 5.22 M/mm3 (4.20-5.40); Red Cell Distribution Width 12.9 % (11.5-17.5); White Blood Count 11.8 K/mm3 (4.8-10.8)
[2024-12-31 09:30] LABS: Alanine Aminotransferase 23 U/L (12-78); Albumin Level 4.2 g/dl (3.5-5.0); Alkaline Phosphatase 74 U/L (38-126); Anion Gap 8.5 mEq/L (5-15); Aspartate Amino Transferase 30 U/L (14-36); Bilirubin,Direct 0.2 mg/dl (0.0-0.4); Bilirubin,Indirect 0.4 mg/dL (0.0-0.9); Bilirubin,Total 0.6 mg/dl (0.2-1.3); Bilirubin,Unconjugated 0.5 mg/dL (0.0-1.1); Blood Urea Nitrogen 14 mg/dl (7-17); Calcium 9.3 mg/dl (8.4-10.2); Carbon Dioxide 31 mmol/L (22.0-30.0); Chloride 105 mmol/L (98-107); Chol/HDL Ratio 3.5 (1-3.5); Cholesterol 190 mg/dl (140-200); Estimated Glomerular Filt Rate 83 ml/min (>60); GFR (African American) 101 ML/MIN (>60); Glucose 122 mg/dl (74-100); HDL Cholesterol 54 mg/dl (40-60); Magnesium 2.2 mg/dl (1.6-2.3); Potassium 4.5 mmoL/L (3.5-5.1); Sodium 140 mmol/L (136-145); Total Protein,Serum 6.8 g/dl (6.3-8.2); Triglycerides 117 mg/dl (30-150); VLDL Cholesterol 23 mg/dL (0-40)
[2024-12-31 09:38] LABS: NT Pro Brain Natriuretic Pep. 123 pg/mL (0-125)
[2024-12-31 09:40] LABS: Direct LDL Cholesterol 109.96 mg/dL (100-129)
[2024-12-31 09:46] LABS: Free T4 (Free Thyroxine) 1.32 ng/dl (0.78-2.19)
[2024-12-31 10:00] LABS: Thyroid Stimulating Hormone 1.36 uIU/mL (0.465-4.68)
[2024-12-31 10:58] LABS: Hemoglobin A1C 6.2 % (4.0-6.0)
== END 2024-12-31 23:59 | disposition home or self-care (01) ==
LOC: LAB 08:11
PROVIDERS: PCP Family Medicine; Visit Provider Internal Medicine
DX: R73.03 Prediabetes (principal); I11.0 Hypertensive heart disease with heart failure; I50.30 Unspecified diastolic (congestive) heart failure; R53.83 Other fatigue
CPT/HCPCS: 36415; 80048; 80061; 80076; 83036; 83735; 83880; 84439; 84443; 85025

== ENCOUNTER 2025-01-03 07:05 | Day surgery (SDC) | payer MEDICARE, SELFPAY ==
[2024-12-31 13:09] VITALS: BMI 41.5
[2025-01-03 07:32] VITALS: BP 146/72; PULSE 71; RESP 16; TEMP 36.2; O2SAT 98
--- NOTE | 2025-01-03 07:53 | EXP.ANES.CKL ---
[facility] Disclaimer: The information contained in this section may have been updated after the patient was seen, as this information can be updated by other users. Medical History History of cataract BMI 40.0-44.9, adult (HFpEF) heart failure with preserved ejection fraction Blurry vision Neck pain Dizziness Palpitations Syncope Near syncope Equivocal stress test Edema Sinus bradycardia Atypical angina Surgical History History of right knee joint replacement History of hip surgery History of cholecystectomy History of partial hysterectomy Family History Other Cancer Coronary artery disease Diabetes Heart attack Hypertension Stroke Social History Smoking Status: Never smoker alcohol intake: never substance use type: denies use current occupational status: retired Travel in the last 8 weeks: None household members: spouse housing: house caffeine: No Have you lived/traveled outside [place] in past 30 days?: No Contact w/someone who lives/traveled outside [place] past 30 days?: No Exposure to someone with infectious disease in past 14 days?: No Do you have a fever (greater than 100.4 F or 38 C)?: No Have you tested positive for COVID-19: No Exposed to someone with COVID-19 in past 14 days?: No Do you have a sore throat?: No Do you have a cough?: No Do you have any weakness?: No Do you have any diarrhea?: No Are you experiencing any unusual bleeding?: No Do you have any muscle aches/pain?: No Do you have any abdominal pain?: No Are you experiencing loss of taste or smell?: No [facility] Anesthesia Checklist Patient Identification Patient Identification: Verbal (Name & ) Structural Data Admitted From: Home Planned Operative Procedure/s: colonoscopy NPO Status Verified Time NPO: 00:00 Additional verifications Anesthesia Reactions: No Hx Blood Transfusions: No Blood Transfusion Reaction: No Airway Assessment Mallampati Score:: Class III C-Spine Mobility Assessed: Yes TMJ Mobility Assessed: Yes Dentition: Good Dentition Neurological Assessment Level of Consciousness: Awake, Alert and Appropriate Anesthesia Plan Anesthesia Risk discussed: Yes Anesthesia Plan: Verified ASA Class: II Anesthesia Type: MAC
[2025-01-03 08:03] VITALS: O2SAT 99
--- NOTE | 2025-01-03 08:04 | EXP.HP ---
History of Present Illness *Admission Date: 01/03/25 *Reason for visit:: Screening for colon cancer *History of present illness: Mrs. Berman is a 69-year-old female who is here for screening/surveillance colonoscopy and her last exam was 10 years ago. The examination is deemed medically necessary for surveillance colonoscopy. The patient has been seen, interviewed and examined prior to the procedure by both myself and the anesthesia provider. [facility] Disclaimer: The information contained in this section may have been updated after the patient was seen, as this information can be updated by other users. Medical History (Updated 01/03/25 @ 08:07 by John Escalante II, MD) History of cataract BMI 40.0-44.9, adult (HFpEF) heart failure with preserved ejection fraction Blurry vision Neck pain Dizziness Palpitations Syncope Near syncope Equivocal stress test Edema Sinus bradycardia Atypical angina Surgical History History of right knee joint replacement History of hip surgery History of cholecystectomy History of partial hysterectomy Family History Other Cancer Coronary artery disease Diabetes Heart attack Hypertension Stroke Social History Smoking Status: Never smoker alcohol intake: never substance use type: denies use current occupational status: retired Travel in the last 8 weeks: None household members: spouse housing: house caffeine: No Have you lived/traveled outside [place] in past 30 days?: No Contact w/someone who lives/traveled outside [place] past 30 days?: No Exposure to someone with infectious disease in past 14 days?: No Do you have a fever (greater than 100.4 F or 38 C)?: No Have you tested positive for COVID-19: No Exposed to someone with COVID-19 in past 14 days?: No Do you have a sore throat?: No Do you have a cough?: No Do you have any weakness?: No Do you have any diarrhea?: No Are you experiencing any unusual bleeding?: No Do you have any muscle aches/pain?: No Do you have any abdominal pain?: No Are you experiencing loss of taste or smell?: No Other Medical History Have you received the Flu Vaccine for this season: Yes Have you received the Pneumonia Vaccine: Yes Review of Systems Review of Systems Review of systems (narrative): Negative *Cardiovascular Comments: Negative *Gastrointestinal Comments: Negative *Genitourinary Comments: Negative *Musculoskeletal Comments: Negative *Neurologic Comments: Negative Meds Home Medications and Allergies Home Medications ?Medication ?Instructions ?Recorded ?Confirmed ?Type levothyroxine 50 mcg capsule 75 mcg PO DAILY 07/10/23 01/03/25 History galcanezumab-gnlm 120 mg/mL 120 mg SQ QMONTH 30 days #1 mL 10/25/24 01/03/25 Rx subcutaneous pen injector (Emgality Pen) empagliflozin 10 mg tablet See Rx Instructions .Route 11/02/24 01/03/25 Rx (Jardiance) .COMPLEX #90 tabs spironolactone 50 mg tablet 50 mg PO DAILY #30 tabs 12/30/24 01/03/25 Rx (Aldactone) torsemide 20 mg tablet 20 mg PO WEEKLY 01/03/25 01/03/25 History ubrogepant 100 mg tablet (Ubrelvy) 100 mg .Route .COMPLEX PRN 01/03/25 01/03/25 History migraines New Prescriptions to Start Prescriptions: Allergies Allergy/AdvReac Type Severity Reaction Status Date / Time amoxicillin Allergy Mild Unknown Verified 01/03/25 07:29 allergy reaction ciprofloxacin Allergy Mild Rash Verified 01/03/25 07:29 azithromycin Allergy Unknown Hives Verified 01/03/25 07:29 celecoxib Allergy Unknown Unknown Verified 01/03/25 07:29 allergy reaction hydrochlorothiazide Allergy Unknown Rash Verified 01/03/25 07:29 Macrolide Antibiotics Allergy Unknown Rash Verified 01/03/25 07:29 NSAIDS (Non-Steroidal Allergy Unknown Rash Verified 01/03/25 07:29 Anti-Inflamma oxytetracycline Allergy Unknown Rash Verified 01/03/25 07:29 rofecoxib (From Vioxx) Allergy Unknown Rash Verified 01/03/25 07:29 Ktvglib-AUS-TxS Reductase Allergy Unknown Rash Verified 01/03/25 07:29 Inhibitor Sulfa (Sulfonamide Allergy Unknown Difficulty Verified 01/03/25 07:29 Antibiotics) Breathing tetracycline Allergy Unknown Rash Verified 01/03/25 07:29 Thiazides Allergy Unknown Rash Verified 01/03/25 07:29 triamterene Allergy Unknown Rash Verified 01/03/25 07:29 atorvastatin (From Lipitor) AdvReac Severe sob, Verified 01/03/25 07:29 fatigue,joint pain rosuvastatin (From Crestor) AdvReac Severe fatigue, Verified 01/03/25 07:29 sob, joint pain amlodipine AdvReac facial Verified 01/03/25 07:29 flushing Exam Data for Last 24 hours Vital signs and Labs for Last 24 Hours: Temp Pulse Resp BP Pulse Ox O2 Del Method O2 Flow Rate 97.1 F L 71 16 146/72 H 98 Nasal Cannula 5 01/03/25 07:32 01/03/25 07:32 01/03/25 07:32 01/03/25 07:32 01/03/25 07:32 01/03/25 08:03 01/03/25 08:03 I & O for Last 24 hours: Intake & Output 12/31/24 01/01/25 01/02/25 01/03/25 23:59 23:59 23:59 23:59 Weight 250 lb *Routine HEENT Exam Head: Present normocephalic Eye: Present EOMI and PERRL ENT: Present mucous membranes moist *Routine Neck Exam Neck: Present supple *Routine Respiratory Exam Respiratory: Present CTA bilaterally *Routine Cardiovascular Exam Cardiovascular: Present RRR *Routine Abdominal Exam Abdominal: Present soft and normoactive bowel sounds; Absent tenderness *Routine Rectal Exam Rectal:: deferred *Routine Genitalia Exam Genitalia:: deferred *Routine Extremities Exam Extremities: Absent cyanosis, clubbing or edema *Routine Skin Exam Skin: Present warm; Absent rash *Routine Neurological Exam Neurological: Present alert and oriented X3 Assessment and Plan *Assessment and plan (1) Screening for colon cancer: Status: Acute Category: Medical Code(s): Z12.11 - Encounter for screening for malignant neoplasm of colon (2) Personal history of colon polyps, unspecified: Status: Acute Category: Medical Code(s): Z86.0100 - Personal history of colon polyps, unspecified Plan A/P: 1. Screening for colon cancer and personal history of colon polyps (unspecified) is the preprocedural diagnosis. The patient will be anesthetized/sedated using MAC sedation. The patient has been seen and examined. Cardiac and lung assessment prior to the examination is stable. Proceed with planned surveillance colonoscopy
--- NOTE | 2025-01-03 08:07 | P.PCN_ITS ---
[facility] Procedure Note Date: 01/03/25 Time: 08: Procedure Note:: Colonoscopy Procedure Report: Colonoscopy with cold snare polypectomy Endoscopist: John Escalante II, MD Referring physician: Randell Delgado MD Date of Procedure: January 03, 2025 Equipment: Olympus 190 variable stiffness pediatric colonoscope Sedation: MAC sedation Indication: Mrs. Berman is a 69-year-old female who is here for follow-up surveillance colonoscopy. The patient has not had colonoscopy for approximately 10 years. The patient initially had screening at age 52 and had polyps and was given shorter surveillance intervals but her last colonoscopy was normal. The patient did have a bout of diverticulitis 17 or 18 years ago. She has had none recently. She does report some bloating and dyspepsia. She reports some bowel irregularity. She reports no rectal bleeding, abdominal pain, weight loss or family history of colon cancer. Procedure: Prior to the procedure, a history and physical exam was performed, and patient's medications and allergies were reviewed. The risks, benefits and alternatives of the sedation and procedure were discussed with the patient. All questions were answered and informed consent was obtained. The patient was brought to the procedure room. Patient identification and proposed procedure were verified by the physician and the nurse. The patient was placed in a left lateral decubitus position and the scope was passed under direct vision. Throughout the procedure, the patient's blood pressure, pulse, and oxygen saturations were monitored continuously. The colonoscopy was accomplished without difficulty. The patient tolerated the procedure well. Findings: On digital rectal examination there was normal rectal tone. There were no external hemorrhoids. The colonoscope was introduced through the anal canal to the rectum and advanced to the cecum. The ileocecal valve and appendiceal orifice were identified. The scope was advanced a short distance into the ileum which appeared grossly normal. The scope was then withdrawn into the colon. There were 5 polyps (ascending x 2 (3 and 4 mm), transverse x 1 (4 mm), descending x 1 (4 mm) and sigmoid x 1 (3 mm)). These were all removed via cold snare polypectomy. The remaining cecum, ascending and transverse colon and mucosa were grossly normal. There were scattered diverticuli throughout the descending and sigmoid colon (LEFT colon). The rectum itself was normal. Upon retroflexion within the rectum there were grade 1-2 internal hemorrhoids. The preparation was excellent throughout with [place] Preparation Score of 9. The cecal time was 14 minutes. Impression: 1. Diminutive colonic polyps x 5 2. Left-sided diverticulosis 3. Grade 1-2 internal hemorrhoids Plan: I will follow-up the polyp histology and recommend repeat surveillance colonoscopy again in 5 years based upon pathology. I would encourage psyllium bulking fiber supplementation on a long-term daily maintenance basis.
[2025-01-03 08:26] VITALS: BP 132/49; PULSE 68; RESP 14; TEMP 36.1; O2SAT 97
[2025-01-03 08:36] VITALS: BP 138/67; PULSE 59; RESP 16; O2SAT 98
[2025-01-03 08:46] VITALS: BP 153/64; PULSE 56; RESP 16; O2SAT 97
[2025-01-03 08:56] VITALS: BP 127/65; PULSE 51; RESP 18; O2SAT 99
== END 2025-01-03 09:05 | disposition home or self-care (01) ==
PROVIDERS: PCP Family Medicine; Visit Provider Internal Medicine Gastroenterology
PROC: 0DJD8ZZ Inspection of Lower Intestinal Tract, Via Natural or Artificial Opening Endoscopic (ICD-10-PCS; CPT 45378; principal; 2025-01-03 08:30)
DX: K63.5 Polyp of colon (principal); K57.30 Diverticulosis of large intestine without perforation or abscess without bleeding; K64.8 Other hemorrhoids; Z12.11 Encounter for screening for malignant neoplasm of colon; Z86.0100 Personal history of colon polyps, unspecified
CPT/HCPCS: 45385

== ENCOUNTER 2025-03-28 09:34 | Outpatient (CLI) | payer MEDICARE, SELFPAY ==
--- OUTSIDE RECORDS SUMMARY | 2025-02-28 05:30 | XMS_ITS ---
[facility] Address [address] [place] [id number] Care Team Providers Care Biblical Studies Professor Name Role Phone Phuong Delgado Primary Care Provider [phone] Obdulia Sutton Unavailable [phone] Allergies Allergen (clinical drug ingredient) Drug/Non Drug [...] Interpretation: Performing Lab: Notes/Report: Test performed by [employer], [employer] [address] [place] [address] , [address], [place] [address] Dave Topete MD, Naphthalene Operator Helper JACE: [id number] Specimen Source Urine - Void Culture, Urine [...] Complex - 1 tab(s) orally once a day for 30 day(s) Active Vitamin D3 25 MCG (1000 UT) 1 cap(s) orally once a day for 30 day(s) 01/30/2016 Active PriLOSEC OTC 20 MG 2 tab(s) orally once a day Active Multivitamin - 1 tab(s) orally once a day for 30 day(s) Active Fish Oil 500 MG [...] mcg TAKE ONE TABLET BY MOUTH EVERY DAY for 30 Active Cipro 500 MG 1 tablet Orally ever y 12 hrs for 3 days Active Voquezna 10 MG 1 tablet Orally Once a day for 30 day(s) 02/28/2025 Active Problems Problem Type SNOMED Code ICD Code Onset Dates Problem Status W/U Status Risk Notes Problem [id number] Type 2 diabetes mellitus with other specified complication, unspecified whether equipment operator intermodal yard insulin use (E11.69) Active confirmed Problem 702195707 Morbid obesity (E66.01) Active confirmed Vital Signs Blood pressure systolic 130 mm Hg 02/29/20 25 Blood pressure diastolic 80 mm Hg 025 Heart Rate 81 /min 02/28/2025 Height 66 in 02/28/2025 Weight 261.0 lbs 02/28/2025 BMI 42.12 kg/m2 02/28/2025 Encounters Encounter Location Date Provider Diagnosis [facility] [address] [place], [place] [phone] 02/28/2025 Obdulia Sutton Acute lower urinary tract infection N39.0 ; Abdominal discomfort, epigastric R10.13 ; Hyperlipidemia, unspecified hyperlipidemia type E78.5 ; Type 2 diabetes mellitus with other specified complication, unspecified whether equipment operator intermodal yard insulin use E11.69 ; BMI 40.0-44.9, adult Z68.41 and Morbid obesity E66.01 Assessments Encounter Date Diagnosis (ICD Code) Assessment Notes Treatment Notes Treatment Clinical Notes Section Notes 02/28/2025 Acute lower urinary tract infection (ICD-10 - N39.0) good water intake 02/28/2025 Abdominal discomfort, epigastric (ICD-10 - R10.13) [place] diet without spicy, salty,acidic, greasy,carbon ated drinks, or caffeine; discussed diet at length 02/28/2025 Hyperlipidemia, unspecified hyperlipidemia type (ICD-10 - E78.5) 02/28/2025 Type 2 diabetes mellitus with other specified complication, unspecified whether equipment operator intermodal yard insulin use (ICD-10 - E11.69) 02/28/2025 BMI 40.0-44.9, adult (ICD-10 - Z68.41) 02/28/2025 Morbid obesity (ICD-10 - E66.01) Plan Of Treatment Medication Medication Name Sig Start Date Stop Date Notes Cipro 500 MG 1 tablet Orally every 12 hrs for 3 days Voquezna 10 MG 1 tablet Orally Once a day for 30 day(s) Treatment Notes Assessment Notes Acute lower urinary tract infection good water intake Abdominal discomfort, epigastric [place] d iet without spicy, salty,acidic, greasy,carbonated drinks, or caffeine; discussed diet at length Next Appt Details Follow Up: 1 Week, Reason: Provider Name:Phuong Lance, 03/28/2025 09:20:00 AM, [address] [facility], [address], [place], [place], [phone], Progress Notes * MELI NOELDIAB: (69 yo F)Acc No.zz [id number]:02/28/2025 Progress Notes Patient: DARIN PABLO Account Number:[id number] Provider: QUINTIN Garza :1955 A ge:69 Y S ex:Female Date:02/28/2025 Address:[address] [place] [address] , [place], [id number] Pcp:Phuong Delgado Subjective: * Chief Complaints: * [...] Stone- [facility] 09/2012, Viral URI- [facility] 08/24/2018, TIA- [facility] 09/03/2019, TIA- 09/03/2019. [...] pleasant , , well nourished and hydrated. HEENT: s clera and conjunctiva clear, PERRLA, TM's normal, translucent. Oral cavity: m ucosa moist and WNL , no erythema. Heart: R RR. Lungs: C TAB A&P. Abdomen: b owel sounds present , obese , soft; tender epigastrium , no organomegaly or masses. Neurologic Exam: a lert and oriented. ? Assessment: * Assessment: 1. A cute lower urinary tract infection - N39.0 (Primary) 2 . A bdominal discomfort, epigastric - R10.13 3 . H yperlipidemia, unspecified hyperlipidemia type - E78.5 4 . T ype 2 diabetes mellitus with other specified complication, unspecified whether equipment operator intermodal yard insulin use - E11.69 5 . B [place] 40.0-44.9, adult - Z68.41 6 . M [...] Obdulia Sutton 03/09/2025 04:22:57 PM [facility] 03/14/2025 Notes: good water intake??2.?Abdominal discomfort, epigastric? Start Voquezna Tablet, 10 MG, 1 tablet, Orally, Once a day, 30 day(s), 30.?? Notes: [place] diet without spicy, salty,acidic, greasy,carbonated drinks, or [...] Trace * B kenneth Neg * G greta Neg * Damaris Obando 02/28/2025 09 :55:09 AM > Provider reviewed results while patient in office.Obdulia Sutton 02/28/2025 03:03:48 PM > * Procedure Codes: G 2211 Complex e/m visit add on, G8752 MOST RECENT SYSTOLIC BP < 140MM HG, G8754 MOST RECENT DIASTOLIC BP < 90MM [place], [address] Urinalysis, no micro * Follow Up: 1 Week * Billing Information: * Visit Code: 66280 Office Visit, Est Pt., Level 4. * Procedure Codes: G2211 Complex e/m visit add on. G8752 MOST RECENT SYSTOLIC BP < 140MM HG. G8754 MOST RECENT DIASTOLIC BP < 90MM HG. [address] Urinalysis, no micro. * Electronic signature of Ny Sutton APRN on 03/28/2025 at 09:37 AM EDT Sign off status: Pending * Provider: QUINTIN Garza Date: 0 02/28/2025 Generated for Ish salazar/Andry/eTransmitting on: 0 03/28/2025 09:37 AM EDT History and Physical Notes * [...]
--- OUTSIDE RECORDS SUMMARY | 2025-03-14 06:00 | XMS_ITS ---
Author Organization [facility] Address [address] [place] [phone] Care Team Providers Care Medical Stenographer Name Role Phone Phuong Delgado Primary Care Provider Obdulia Sutton Unavailable [phone] Allergies Allergen (clinical drug ingredient) Drug/Non Drug [...] (substance) Sulfa Antibiotics Unknown Drug Allergy Active Reason For Referral Reason on going stomach [...] a day for 30 day(s) 01/30/2016 Active Spironolactone 50 MG 1 tablet Orally Onc e a day Active Albuterol Sulfate HFA 108 (90 Base) MCG/ACT 2 puff(s) inhaled qid and q2h prn 05/21/2022 Not-Taking Dicyclomine HCl 10 MG 1 cap(s) orally ACHS 022 Not-Taking Compression Stockings - as directed 07/08/2024 Active Cipro 500 MG 1 tablet Orally ever y 12 hrs for 3 days Not-Taking Levothyroxine Sodium 75 mcg TAKE ONE TABLET BY MOUTH EVERY DAY for 30 Active Fish Oil 500 MG 2 cap(s) orally 2 ti mes a day Active Torsemide 10 MG 1 tablet Orally Once a day Active Vitamin B Complex - 1 tab(s) orally once a day for 30 day(s) Active PriLOSEC OTC 20 MG 2 tab(s) orally once a day Active Multivitamin - 1 tab(s) orally once a day for 30 day(s) Active Problems Problem Type SNOMED Code ICD Code Onset Dates Problem Status W/U Status Risk Notes Problem Polyarthritis (716568673) Polyarthritis (M13.0) Active confirmed Problem HLD (hyperlipidemia) (E78.5) Active confirmed Vital Signs Blood pressure systolic 126 mm Hg 03/14/20 25 Blood pressure diastolic 80 mm Hg 025 Heart Rate 81 /min 03/14/2025 Height 66 in 03/14/2025 Weight 256.0 lbs 03/14/2025 BMI 41.31 kg/m2 03/14/2025 Encounters Encounter Location Date Provider Diagnosis [facility] [address] [facility] [address] [place] [phone] 03/14/2025 Obudlia Sutton Polyarthritis M13.0 ; Stomach pain R10.9 [...] Order Date CBC Venipuncture (in house) 03/14/2025 CT Scan : Abd & Pelvis with and without IV contrast only 03/14/2025 P-Comprehensive Metabolic Panel (CMP) P-Arthritis Panel, [facility] 03/14/2025 P-Lipase 03/14/2025 P-Lipid Panel 03/14/2025 P-TSH 03/14/2025 P-Vitamin D, 1, 25 Dihydroxy 03/14/2025 Referrals Referral Date Details 03/14/2025 03/14/2025, on going stomach pain with nausea, . Gastroenterology Next Appt Details Follow Up: after CT prn, [place] son: Provider Name:Phuong Lance, 03/28/2025 09:20:00 AM, [address], [place], [place], [phone], Progress Notes * SERGIO NOEL: 7 (69 yo F)Acc No.zz [id number]:03/14/2025 Progress Notes Patient: DARIN PABLO Account Number:[id number] Provider: QUINTIN Garza :1955 A ge:69 Y S ex:Female Date:03/14/2025 Address:[facility] [place] , [place], [id number] Pcp:Phuong Delgado Subjective: * Chief Complaints: * [...] Hospitalization/Major Diagno stic Procedure: C hest Pain- [facility] 06/09/2012, Kidney Stone- [facility] ER 09/2012, Viral URI- [facility] 08/24/2018, TIA- [facility] 09/03/2019, TIA- 09/03/2019. * Family History: [...] eneral Examination: General Appearance: N AD, pleasant. Heart: R RR. Lungs: n ormal, clear to auscultation. ? G astroenterology: Abdomen: e pigastric tenderness, BS [...] Pelvis with and without IV contrast only Notes: Will go ahead and order CT [...] G 2211 Complex e/[place], [address] CBC WITH AUTO DIFF, 30033 VENIPUNCT, ROUTINE*, 1036F TOBACCO NON-USER, G8752 MOST RECENT SYSTOLIC BP < 140MM HG, G8754 MOST RECENT DIASTOLIC BP < 90MM HG * Follow Up: a fter CT prn * Billing Information: * Visit Code: 30605 Office Visit, Est Pt., Level 3. * Procedure Codes: G2211 Complex e/[place]. [address] CBC WITH AUTO DIFF. 60723 VENIPUNCT, ROUTINE*. 1036F TOBACCO NON-USER. G8752 MOST RECENT SYSTOLIC BP < 140MM HG. G8754 MOST RECENT DIASTOLIC BP < 90MM HG. * Electronic signature of Ny Sutton APRN on 03/28/2025 at 09:37 AM EDT Sign off status: Pending * Provider: QUINTIN Garza Date: 0 03/14/2025 Generated for Ish salazar/Andry/Melinda on: 0 03/28/2025 09:37 AM EDT History [...]
--- OUTSIDE RECORDS SUMMARY | 2025-03-15 05:00 | XMS_ITS ---
Author Organization [facility] Address [address] [facility] [address] [place] [id number] Care Team Providers Care Diving Supervisor Name Role Phone Phuong Delgado Primary Care Provider Obdulia Sutton Unavailable [phone] Results Component Value Reference Range Notes CBC [...] 144 Performing Lab: Notes/Report: Test performed by [employer], [employer] [facility] , [address], [place] [address] Dave Topete MD, Package Yarns Drying Machine Operator CLIA: [id number] Sodium 143 135-145 mmol/L Potassium 4.3 3.5-5.3 [...] mg/dL A/G Ratio 1.7 1.1-2.5 [facility] Reviewed date:03/21/2025 01:08:58 PM Interpretation: Performing Lab: Notes/Report: Test performed by [employer] [address] [place], [place] [address] [address] , [address], [place] [address] Dave Topete MD, Package Yarns Drying Machine Operator CLIA: [id number] Erythrocyte Sedimentation Rate (ESR), Automated 31 <31 mm/hr Rheumatoid Factor <10 <14.1 IU/mL C-Reactive Protein (CRP) 0.93 <0.50 mg/dL Antinuclear Antibodies (ELLY) Screen, Reflex ELLY 9 Panel Negative Negative This test is performed by Multiplex Bead Immunoassay methodology. Antinuclear Antibodies (ELLY) Result Note SEE COMMENT For positive Autoantibodies, please refer to the interpretive chart here: [email or web address] [email or web address] CCP Antibodies <0.5 <0.5-3.0 U/mL P-Lipase Reviewed date:03/21/2025 01:09:44 PM Interpretation:31.8 Performing Lab: Notes/Report: Test performed by [employer] [address] [place], [place] [address] [address] , [address], [place] [address] Dave Topete MD, Package [employer] Drying Machine Operator CLIA: [id number] Lipase 31.8 13.0-60.0 u/L P-Lipid Panel Reviewed date:03/21/2025 01:10:10 PM Interpretation:HDL 51; LDL 114; TG 92 Performing Lab: Notes/Report: Test performed by [employer] [address] [place], [place] [address] [address] , [address], [place] [address] Dave Topete MD, Package [employer]s Drying Machine Operator CLIA: [id number] Cholesterol 183 <200 mg/dL Triglycerides 92 <150 [...] Interpretation:0.73 Performing Lab: Notes/Report: Test performed by [employer] [address] [place] [address] , [address], [place] [address] Dave Topete MD, Package [employer] Drying Machine Operator CLIA: [id number] TSH 0.73 0.43-5.25 mU/L P-Vitamin D, 1, 25 Dihydroxy Reviewed date:03/21/2025 01:10:58 PM Interpretation:31.2 Performing Lab: Notes/Report: Test performed by [employer] [address] [place] [address] , [address], [place] [address] Dave Topete MD, Package [employer] Drying Machine Operator CLIA: [id number] Vitamin D, 1, 25 Dihydroxy 31.2 19.9-79.3 [...] y 12 hrs for 3 days Not-Taking PriLOSEC OTC 20 MG 2 tab(s) orally once a day Active Torsemide 10 MG 1 tablet Orally Once a day Active Compression Stockings - as directed 07/08/2024 Active Fish Oil 500 MG 2 cap(s) orally 2 ti mes a day Active Vitamin B Complex - 1 tab(s) orally once a day for 30 day(s) Active Levothyroxine Sodium 75 mcg TAKE ONE TABLET BY MOUTH EVERY DAY for 30 Active Vitamin D3 25 MCG (1000 UT) 1 cap(s) orally once a day for 30 day(s) 01/30/2016 Active Multivitamin - 1 tab(s) orally once a day for 30 day(s) Active Entresto 49-51 MG 1 tablet Orally Twic e a day Active Emgality 120 MG/ML as directed Subcutaneous Active Spironolactone 50 MG 1 tablet Orally Onc e a day Active Encounters Encounter Location Date Provider Diagnosis [facility] 36 [facility] [address] [place], [place] [id number] 03/15/2025 Obdulia Sutton Polyarthritis M13.0 ; HLD [...] pain (ICD-10 - R10.9) Plan Of Treatment Next Appt Details Provider Name:Phuong Lance, 03/28/2025 09:20:00 AM, [address] [facility] 36 [facility], [address], [place], [place], [id number], Progress Notes * MELI NOELDIAB: (69 yo F)Acc No.zz [id number]:03/15/2025 Patient: DARIN PABLO Account Number:[id number] Provider: QUINTIN Garza :1955 A ge:69 Y S ex:Female Date:03/15/2025 Address:[facility] [address], [id number] Pcp:Phuong Delgado Subjective: * Chief Complaints: * [...] T SH 0.73 0.43-5.25 - mU/L * Obdulia Sutton 03/21/2025 01:10:17 PM EDT >I spoke with [...] 8 5025 CBC WITH AUTO DIFF * Billing Information: * Visit Code: * Procedure Codes: 88432 CBC WITH AUTO DIFF. * Electronic signature of Ny Sutton APRN on 03/28/2025 at 09:37 AM EDT Sign off status: Pending * Provider: QUINTIN Garza Date: 0 03/15/2025 Generated for Ish salazar/Andry/Melinda on: 0 03/28/2025 09:37 AM EDT
--- OUTSIDE RECORDS SUMMARY | 2025-03-28 09:37 | XMS_ITS | Referral Summary ---
Author Organization [facility] Address [address] [place] [address] Care Team Providers Care Highway Maintenance Crew Worker Name Role Phone Unavailable Primary Care Provider Unavailabl e Social History Tobacco Use Types Packs/Day Years Used Date Smoking Tobacco: Never Assessed Interpersonal Safety Answer Date Record ed Family or friends hurt you Not on file 03/23 Family or friends insult you Not on file 08/2024 Family or friends threaten you Not on file 0 03/23/2024 Family or friends scream or curse at you Not on file 03/23/2024 Food Insecurity Answer Date Recorded Food run out past 12 months Not on file 03/13 Food did not last past 12 months Not on file 03/23/2024 Employment Answer Date Recorded Help finding and keeping a job Not on file 0 03/23/2024 Family and Community Support Answer Reynaldo e Recorded Help with Day to Day Activities Not on file 03/23/2024 Feeling Lonely or Isolated Not on file 03/23 Educational Attainment Answer Date Joseph rded Speak language other than Mauritian at home Not on file 03/23/2024 Want help with school or training Not on file 03/23/2024 Depression Answer Date Recorded PHQ-2 Risk Not on file 03/23/2024 Disabilities Answer Date Recorded Difficulty concentrating Not on file 024 Difficulty doing errands alone Not on file 0 03/23/2024 Substance Use Answer Date Recorded Used prescription meds for non-medical reasons N ot on file 03/23/2024 Used illegal drugs past 12 months Not on file 03/23/2024 Comments Unknown Sex and Gender Information Value Date Recorded Sex Assigned at Not on file Legal Sex Female 7:34 PM CDT Gender Identity Not on file Sexual Orientation Not on file Plan of Treatment Not on file
--- OUTSIDE RECORDS SUMMARY | 2025-03-28 09:37 | XMS_ITS | Clinical Summary ---
Author Organization [facility] [employer] [facility] Address [address] [place] [address] Care Team Providers Care Retirement Actuary Name Role Phone Unavailable Primary Care Provider [...] Date Joseph rded Speak language other than Monegasque at home Not on file 03/23/2024 Want [...] Orientation Not on file Plan of Treatment Health Maintenance Due Date Last Done Comments CT Colonography 1957 Colonoscopy 1955 Colorectal Cancer Screening 1955 DXA SCAN 1955 FOBT/FIT 1957 Fit-DNA (Cologuard) 1957 Sigmoidoscopy 1955 Depression Screening (12+) 1969 Tobacco Cessation Counseling and Screening (12+) 1969 Hepatitis C Screening 1975 DTAP/TDAP/TD VACCINES (1 - Tdap) 1976 Shingles Vaccine (Zoster) (1 of 2) 2007 Breast Cancer Screening 12/10/2017 12/11/2015 COVID-19 VACCINE ( season) 2024 08/29/2021, 12/13/2020, 11/15/2020 Falls Risk Screening 10/13/2024 Influenza Vaccine (Season Ended) 2025 10/16/19 21 Respiratory Syncytial Virus (RSV) Adult or (1 - 1-dose 75+ series) 2032 Pneumococcal 50+ years Completed 08/13/2023
--- OUTSIDE RECORDS SUMMARY | 2025-03-28 09:37 | XMS_ITS ---
Author Organization Unknown TREATMENT PLAN [facility] Start Date Provider Encounter for Check-up [phone] [facility]
--- OUTSIDE RECORDS SUMMARY | 2025-03-28 09:37 | XMS_ITS | Clinical Summary ---
Author Organization [facility] [place] Address [address] [place] [address] Phone Care Team Providers Care Cut File Clerk Name Role Phone Unavailable Primary Care Provider Unavailabl e Allergies Active Allergy Reactions Criticality Noted Date Comments Amlodipine Other (See Comments) 08/19/2022 Amoxicillin Hives Medium 05/07/2024 Atorvastatin Shortness Of Breath High 08/19/2022 Azithromycin Other (See Comments) 11/05/2011 Celecoxib Other (See Comments) 11/05/2011 Ciprofloxacin Rash 08/19/2022 Macrolide Antibiotics Other (See Comments) 04/2022 Rosuvastatin Shortness Of Breath High 08/19/2022 Sulfa (Sulfonamide Antibiotics) Other (See Comments) 08/19/2022 Tetracycline Other (See Comments) 08/19/2022 Triamterene Other (See Comments) 08/19/2022 Vioxx Other (See Comments) 08/19/2022 Medications UBRELVY 100 mg Oral TabletIndicati ons:Urinary frequency FOR MIGRAINE; TAKE 1 TABLET BY MOUTH AT ONSET OF SYMPTOMS. MAY REPEAT AFTER TWO HOURS IF SYMPTOMS PERSIST. MAX 2 TABLETS IN 24 HOURS. Active co-enzyme Q-10 30 mg Oral CapsuleIndicat ions:Urinary frequency Active torsemide (DEMADEX) 10 mg Oral TabletIndicati ons:Urinary frequency Take 10 mg by mouth daily. 4 Active spironolactone (ALDACTONE) 25 mg Oral TabletIndicati ons:Urinary frequency Active sacubitril/jazz sartan (ENTRESTO ORAL)Indicatio ns:Urinary frequency Active omeprazole (PRILOSEC OTC) 20 mg Oral Tablet, Delayed Release (E.C.)Indicati ons:Urinary frequency Active LEVOthyroxine (SYNTHROID) 75 mcg Oral TabletIndicati ons:Urinary frequency Take 75 mcg by mouth daily. 4 Active EMGALITY PEN 120 mg/mL SubQ Pen InjectorIndica tions:Urinary frequency INJECT 120 MG SUBCUTANEOUSLY ONCE a MONTH 4 Active JARDIANCE 10 mg Oral TabletIndicati ons:Urinary frequency Take 10 mg by mouth daily. 4 Active Multivitamins with Minerals Oral CapsuleIndicat ions:Urinary frequency Daily Active omega 7-rvu-qab-fish oil 1,000 mg (250 mg-750 mg)/5 mL Oral LiquidIndicati ons:Urinary frequency Active terazosin (HYTRIN) 1 mg Oral CapsuleIndicat ions:Urinary frequency Active vibegron (GEMTESA) 75 mg Oral TabletIndicati ons:Overactive bladder Take 1 Tablet by mouth daily. 30 Tablet 5 4 Active Social History Tobacco Use Types Packs/Day Years Used Date Smoking Tobacco: Former Cigarettes Smokeless Tobacco: Never Tobacco Cessation:Counseling Given: Not Answered Comments No Sex and Gender Information Value Date Recorded Sex Assigned at Not on file Legal Sex Female 1:02 PM EDT Gender Identity Not on file Sexual Orientation Not on file Obstetrics History Para Term AB IAB SAB Ectopic Multiple Livin g Live Births 2 2 2 2 Date Outcome GA Total Labor Labor/2nd/3rd Weight Sex Type Anes PTL [place] A1 A5 Name Clin Term Term Last Filed Vital Signs Vital Sign Reading Time Taken Comments Blood Pressure - - Pulse 80 05/07/2024 1:48 PM EDT Temperature - - Respiratory Rate - - Oxygen Saturation 99% 05/07/2024 1:48 PM EDT Inhaled Oxygen Concentration - - Weight 114.3 kg (252 lb) 05/07/2024 1:48 PM EDT Height - - Body Mass Index - - Plan of Treatment Health Maintenance Due Date Last Done Comments Wellness Exam Medicare 1958 Hepatitis C Screening 1975 DTaP/TDaP/Td (1 - Tdap) 1976 Cologuard 2002 Colon Cancer Screening 2002 Colonoscopy 2002 FIT 2002 Sigmoidoscopy 2002 Virtual Colonography 2002 Zoster (1 of 2) 2007 RSV or 60+ (1 - Risk 60-74 years 1-dose series) 2017 Bone Density Screening 2022 COVID-19 Vaccine ( season) 2024 08/29/2021, 12/13/2020, 11/15/2020 Influenza Vaccine (Season Ended) 2025 10/09/2021, 10/16/2020, 07/19/2019 Breast Cancer Screening 10/10/2025 10/10/20 23, 10/10/2023, 08/13/2022, Additional history exists Pneumococcal Vaccine 50+ Completed 08/13/2023 Hepatitis B Vaccine Aged Out No longe r eligible based on patient's age to complete this topic Meningococcal B Vaccine Aged Out No l onger eligible based on patient's age to complete this topic Insurance [employer]ARE PPO MR [employer] PPO MR
--- NOTE | 2025-03-28 09:39 | CT_ITS ---
FINAL REPORT CLINICAL HISTORY: STOMACH PAIN COMPARISON: None FINDINGS: Pre infusion images demonstrate no evidence of kidney stones. Post infusion images demonstrate the lungs are clear. There is mild fatty infiltration of the liver. The gallbladder is absent. The spleen, pancreas, adrenal glands, and kidneys are unremarkable. There is a fat containing umbilical hernia. The urinary bladder is unremarkable. There is streak artifact arising from hip prostheses. There is abnormal loss of height of the L4-5 level with grade 1 spondylolisthesis. IMPRESSION: Fat containing umbilical hernia. Reviewed, Interpreted and Dictated by Antoine Pritchard MD Transcribed by Florence August Authenticated and [facility]
--- OUTSIDE RECORDS SUMMARY | 2025-03-28 09:39 | XMS_ITS | Patient Health Record ---
[facility] Organization [facility] [address] [place] [id number] Care Team Providers Care Engraver Seals Name Role Phone Phuong Delgado Primary Care Provider [phone] Obdulia Sutton Unavailable [phone] Allergies Allergen (clinical drug ingredient) Drug/Non Drug [...] Interpretation: Performing Lab: Notes/Report: Test performed by [facility], [facility] [address] [place] [address] , [address], [place] [address] Dave Topete MD, Research Kennel Supervisor JACE: [id number] Specimen Source Urine - Void Culture, Urine [...] CFU/ml Escherichia coli Sensitivity Panel See Below Organism E. coli Antibiotic INTERP Amikacin S Ampicillin S Aztreonam S Cefepime S Cefoxitin S Ceftazidime S Ceftriaxone S Cefuroxime S Ciprofloxacin I Ertapenem S Gentamicin S Imipenem S Levofloxacin S Meropenem S Nitrofurantoin S Piperacillin/Tazo S Tetracycline S Tobramycin S Trimeth/Sulfa S S=SUSCEPTIBLE I=INTERMEDIATE R=RESISTANT CBC Venipuncture (in house) Reviewed date:03/21/2025 09:41:13 [...] 144 Performing Lab: Notes/Report: Test performed by [facility] [address] [place] [address] , [address], [place] [address] Dave Topete MD, Research Kennel Supervisor CLIA: [id number] Sodium 143 135-145 mmol/L Potassium 4.3 3.5-5.3 [...] mg/dL A/G Ratio 1.7 1.1-2.5 P-Arthritis Panel, [facility] Reviewed date:03/21/2025 01:08:58 PM Interpretation: Performing Lab: Notes/Report: Test performed by [facility] [address] [place] [address] , [address], [place] [address] Dave Topete MD, Research Kennel Supervisor CLIA: [id number] Erythrocyte Sedimentation Rate (ESR), Automated 31 <31 mm/hr Rheumatoid Factor <10 <14.1 IU/mL C-Reactive Protein (CRP) 0.93 <0.50 mg/dL Antinuclear Antibodies (ELLY) Screen, Reflex ELLY 9 Panel Negative Negative This test is perform ed by Multiplex Bead Immunoassay methodology. Antinuclear Antibodies (ELLY) Result Note SEE COMMENT For positive Autoantibodies, please refer to the interpretive chart here: [email or web address] CCP Antibodies <0.5 <0.5-3.0 U/mL P-Lipase Reviewed date:03/21/2025 01:09:44 PM Interpretation:31.8 Performing Lab: Notes/Report: Test performed by [facility] [address] [place], [place] [address] , [place] [address] Dave Topete MD, Research Kennel Supervisor CLIA: [id number] Lipase 31.8 13.0-60.0 u/L P-Lipid Panel Reviewed date:03/21/2025 01:10:10 PM Interpretation:HDL 51; LDL 114; TG 92 Performing Lab: Notes/Report: Test performed by [facility] [address] [place], [place] [address], [place] [address] Dave Topete MD, Research Kennel Supervisor CLIA: [id number] Cholesterol 183 <200 mg/dL Triglycerides 92 <150 [...] Results: 138 Units: mg/dL % Change: - ------- Test Date: 07/09/2024 LDL Results: 103 Units: mg/dL % Change: -25% ------- Test Date: 03/15/2025 LDL Results: 114 Units: mg/dL % Change: +10% P-TSH Reviewed date:03/21/2025 01:10:32 PM Interpretation:0.73 Performing Lab: Notes/Report: Test performed by [facility] [address] [place] [address] [place] [address] Dave Topete MD, Research Kennel Supervisor CLIA: [id number] TSH 0.73 0.43-5.25 mU/L P-Vitamin D, 1, 25 Dihydroxy Reviewed date:03/21/2025 01:10:58 PM Interpretation:31.2 Performing Lab: Notes/Report: Test performed by [facility] [address] [place] [address] , [place] [address] Dave Topete MD, Research Kennel Supervisor CLIA: [id number] Vitamin D, 1, 25 Dihydroxy 31.2 19.9-79.3 pg/mL colonoscopy Reviewed date:01/03/2025 04:27:07 PM Interpretation:polyps, diverticulosis, hemorrhoids, repeat 5 years Performing Lab: Notes/Report: polyps, diverticulosis, hemorrhoids, repeat 5 years result: polyps, diverticulosis, hemorrhoids repeat study: 5 years Bone density Reviewed date:07/20/2024 04:04:57 PM Interpretation:Normal Performing Lab: Notes/Report: Normal P-Comprehensive Metabolic Pa med (CMP) Reviewed date:04/06/2024 09:40:53 AM Interpretation: Performing Lab: Notes/Report: Test performed by [facility] [address] [place] [address] , [address], [place] [address] Dave Topete MD, Research Kennel Supervisor CLIA: [id number] Sodium 138 135-145 mmol/L Potassium 3.9 3.5-5.3 mmol/L Chloride 100 97-108 mmol/L CO2 26 22-32 mmol/L Glucose 130 65-99 mg/dL BUN 24 8-23 mg/dL Creatinine 0.69 0.50-1.00 mg/dL Calcium 9.4 8.6-10.4 mg/dL eGFR by Creatinine 95 >59 mL/min/1.73m2 Protein 6.8 6.0-8.3 g/dL Albumin 4.3 3.5-5.3 g/dL Alkaline Phosphatase 70 35-121 IU/L ALT (SGPT) 15 <5-47 IU/L AST (SGOT) 23 <5-40 IU/L Bilirubin, Total 0.4 <0.2-1.2 mg/dL A/G Ratio 1.7 1.1-2.5 mg/dL CBC Venipuncture (in house) Reviewed date:04/06/2024 09:40:34 AM Interpretation: Performing Lab: Notes/Report: wbc 10.7 3.5 - 10 lymph 22.1 15 - 50 mid 5.7 2 - 15 gran 72.2 35 - 80 rbc 5.10 3.5 - 5.5 hgb 15.5 11.5 - 16.5 hct 47.6 35 - 55 mcv 93.2 75 - 100 mch 30.4 25 - 35 mchc 32.6 31 - 38 platlet 276 100 - 400 Glycohemoglobin A1c (in hous e) Reviewed date:07/11/2024 10:31:01 PM Interpretation:6.0% Performing Lab: Notes/Report: 6.0% glycohemoglobin 6.0% 5 - 6.5 % P-Comprehensive Metabolic Pa med (CMP) Reviewed date:07/11/2024 10:31:00 PM Interpretation: Performing Lab: Notes/Report: Test performed by [facility] [address] [place] [address] , [address], [place] [address] Dave Topete MD, Research Kennel Supervisor CLIA: [id number] Sodium 142 135-145 mmol/L Potassium 4.3 3.5-5.3 mmol/L Chloride 107 97-108 mmol/L CO2 21 22-32 mmol/L Glucose 135 65-99 mg/dL BUN 15 8-23 mg/dL Creatinine 0.75 0.50-1.00 mg/dL Calcium 9.3 8.6-10.4 mg/dL eGFR by Creatinine 87 >59 mL/min/1.73m2 Protein 6.4 6.0-8.3 g/dL Albumin 4.0 3.5-5.3 g/dL Alkaline Phosphatase 78 35-121 IU/L ALT (SGPT) 12 <5-47 IU/L AST (SGOT) 19 <5-40 IU/L Bilirubin, Total 0.4 <0.2-1.2 mg/dL A/G Ratio 1.7 1.1-2.5 P-Lipid Panel Reviewed date:07/11/2024 10:31:00 PM Interpretation: Performing Lab: Notes/Report: Test performed by [facility] [address] [place] [address] , [address], [place] [address] Dave Topete MD, Research Kennel Supervisor CLIA: [id number] Cholesterol 173 <200 mg/dL Triglycerides 132 <150 mg/dL HDL Cholesterol 44 >39 mg/dL Cholesterol / HDL Ratio 3.93 0.00-4.44 Ratio Non-HDL Cholesterol 129 <130 mg/dL LDL Cholesterol (Calculation) 103 <130 mg/dL LDL Cholesterol Levels* Less than 100 mg/dL Optimal 100 to 129 mg/dL Near Optimal/ Above Optimal 130 to 159 mg/dL Borderline High 160 to 189 mg/dL High 190 mg/dL and above Very High * Categories as recommended by the 2004 ATPIII guidelines LDL/HDL Ratio 2.3 <3.3 Ratio LDL Cholesterol Patient History Test Date: 01/08/2024 LDL Results: 138 Units: mg/dL % Change: - ------- Test Date: 07/09/2024 LDL Results: 103 Units: mg/dL % Change: -25% P-TSH Reviewed date:07/11/2024 10:31:00 PM Interpretation: Performing Lab: Notes/Report: Test performed by [facility] [address] [place] [address] , [address], [place] [address] Dave Topete MD, Research Kennel Supervisor CLIA: [id number] TSH 1.50 0.43-5.25 mU/L Glycohemoglobin (HbA1C) Reviewed date:01/03/2025 04:29:35 PM Interpretation:6.2 Performing Lab: Notes/Report: 6.2 glycohemoglobin 6.2 Pathology evaluation Reviewed date:01/10/2025 10:33:01 AM Interpretation:tubular adenomas - colon Performing Lab: Notes/Report: tubular adenomas - colon Medications Medication SIG (Take, Route, Frequency, Duration) Notes Start Date End Date Status Torsemide 10 MG 1 tablet Orally Once a day Active Compression Stockings - as directed 07/08/2024 Active Fish Oil 500 MG 2 cap(s) orally 2 ti mes a day Active Vitamin B Complex - 1 tab(s) orally once a day for 30 day(s) Active Vitamin D3 25 MCG (1000 UT) 1 cap(s) orally once a day for 30 day(s) 01/30/2016 Active Jardiance 10 MG 1 tablet Orally Once a day 05/27/2023 Not-Taking Multivitamin - 1 tab(s) orally once a day for 30 day(s) Active Entresto 49-51 MG 1 tablet Orally Twic e a day Active Albuterol Sulfate HFA 108 (90 Base) MCG/ACT 2 puff(s) inhaled qid and q2h prn 05/21/2022 Not-Taking Emgality 120 MG/ML as directed Subcutaneous Active Dicyclomine HCl 10 MG 1 cap(s) orally ACHS 022 Not-Taking Cipro 500 MG 1 tablet Orally ever y 12 hrs for 3 days Not-Taking Spironolactone 50 MG 1 tablet Orally Onc e a day Active Levothyroxine Sodium 75 mcg TAKE ONE TABLET BY MOUTH EVERY DAY for 30 Active PriLOSEC OTC 20 MG 2 tab(s) orally once a day Active Immunizations Vaccine Route Administration Date Status Comme nts COVID 19 Moderna Unknown 11/15/2020 Administered COVID 19 Moderna Unknown 12/13/2020 Administered COVID 19 Moderna Unknown 08/29/2021 Administered Fluzone High Dose (65yr and older) Unknown 08/30/2022 Pending Fluzone High Dose (65yr and older) IM Intramuscular 08/13/2023 Administered Fluzone High Dose (65yr and older) IM Intramuscular 07/08/2024 Administered Fluzone PF Quad (6-35 months) Unknown 10/16/2020 Administered Fluzone Quad (6months&older) IM Intramuscular 07/19/2019 Administered Fluzone Quad (6months&older) IM Intramuscular 10/09/2021 Administered PNEUMOVAX 23 VACCINE IM Intramuscular 01/04/2025 Administe red Prevnar (PCV20) IM Intramuscular 08/13/2023 Administered xFlu shot-36 months and older IM Intramuscular 09/14/2009 Administered xFluzone Intradermal (18-64yrs)-trivalent ID Intradermal 07/15/2014 Administered Problems Problem Type SNOMED Code ICD Code Onset Dates Problem Status W/U Status Risk Notes Problem Essential hypertension (74685963) Essential (primary) hypertension (I10) Active confirmed Problem Type 2 diabetes mellitus (77598004) Type 2 diabetes mellitus (E11.9) Active confirmed Problem Sciatica (27862735) Sciatica (M54.30) Active confirmed Problem Vitamin D deficiency (88943400) Vitamin D deficiency (E55.9) Active confirmed Problem Essential hypertension (59769704) Essential hypertension (I10) Active confirmed Problem 937698943 Morbid obesity (E66.01) Active confirmed Problem Urinary incontinence (814937016) Urinary incontinence (R32) Active confirmed Problem 37313666 Venous insufficiency (I87.2) Active confirmed Problem 299131932 Lymphedema (I89.0) Active confirmed Problem 553348642 Acquired hypothyroidism (E03.9) Active confirmed Problem 60983821 Situational depression (F43.21) Active confirmed Problem Hypothyroidism (02405000) Hypothyroidism (E03.9) Active confirmed Problem Polyarthritis (523075313) Polyarthritis (M13.0) Active confirmed Problem Body mass index 40+ - morbidly obese (277642225) BMI 40.0-44.9, adult (Z68.41) Active confirmed Problem Hyperlipidaemia (64141098) Hyperlipidemia, unspecified hyperlipidemia type (E78.5) Active confirmed Problem Migraine variant with headache (disorder) (660162448) Migraine headache (G43.909) Active confirmed Problem 121829000 TIA (transient ischemic attack) (G45.9) Active confirmed Problem Hyperlipidaemia (52987592) HLD (hyperlipidemia) (E78.5) Active confirmed Problem Obese class II (066729918465734) BMI 39.0-39.9,adult (Z68.39) Active confirmed Problem 911738433 Complicated migraine (G43.109) Active confirmed Problem 161865954 Knee joint replacement by other means (Z96.659) Active confirmed Problem 882572260980248 Stasis dermatiti s of left lower extremity due to peripheral venous hypertension (I87.322) Active confirmed Problem 11716275 Type 2 diabetes mellitus with other specified complication, unspecified whether care home insulin use (E11.69) Active confirmed Problem 2262591553511 Chronic heart failure with preserved ejection fraction (HFpEF) (I50.32) Active confirmed Vital Signs Heart Rate 81 /min 03/14/2025 Blood pressure diastolic 80 mm Hg 03/14/2025 Height 66 in 03/14/2025 Blood pressure systolic 126 mm Hg 03/14/2025 Weight 256.0 lbs 03/14/2025 BMI 41.31 kg/m2 03/14/2025 Encounters Encounter Location Date Provider Diagnosis [facility] [address] [place] [address] FRAN[place]IS Garcia [id number] 04/05/2024 Obdulia Sutton Abdominal pain R10.9 ; Edema R60.9 and Rectal bleeding K62.5 [facility] [address] [place] Garcia [id number] 07/08/2024 [facility] Adult general medica l examination Z00.00 ; Lymphedema I89.0 ; Essential hypertension I10 ; Acquired hypothyroidism E03.9 ; Type 2 diabetes mellitus E11.9 ; Postmenopausal Z78.0 ; Colon cancer screening Z12.11 ; Chronic heart failure with preserved ejection fraction (HFpEF) I50.32 ; Migraine headache G43.909 ; Knee joint replacement by other means Z96.659 ; Vitamin D deficiency E55.9 ; Urinary incontinence R32 and BMI 39.0-39.9,adult Z68.39 [facility] [address] [place] [address] FRANCOIS Garcia [id number] 07/09/2024 [facility] Acquired hypothyroid ism E03.9 ; Hyperlipidemia, unspecified hyperlipidemia type E78.5 ; Type 2 diabetes mellitus E11.9 and Essential (primary) hypertension I10 [facility] [address] [place] [address] FRANCOIS Garcia [id number] 01/04/2025 [facility] Adult general medica l examination Z00.00 ; Chronic heart failure with preserved ejection fraction (HFpEF) I50.32 ; Essential hypertension I10 ; Acquired hypothyroidism E03.9 ; Type 2 diabetes mellitus E11.9 ; Lymphedema I89.0 ; Vitamin D deficiency E55.9 ; Knee joint replacement by other means Z96.659 and BMI 40.0-44.9, adult Z68.41 [facility] [address] [facility] [address] FRAN[place]IS Garcia [id number] 02/28/2025 Obduliayuri Sutton Acute lower urinary tract infection N39.0 ; Abdominal discomfort, epigastric R10.13 ; Hyperlipidemia, unspecified hyperlipidemia type E78.5 ; Type 2 diabetes mellitus with other specified complication, unspecified whether care home insulin use E11.69 ; BMI 40.0-44.9, adult Z68.41 and Morbid obesity E66.01 [facility] [address] FRAN[place]IS Garcia [id number] 03/14/2025 Obdulia Sutton Polyarthritis M13.0 ; Stomach pain R10.9 ; HLD (hyperlipidemia) E78.5 ; Lymphedema I89.0 ; Acquired hypothyroidism E03.9 and Vitamin D deficiency E55.9 [facility] [address] FRANCOIS Garcia [id number] 03/15/2025 Obdulia Sutton Polyarthritis M13.0 ; HLD (hyperlipidemia) E78.5 ; Hypothyroidism E03.9 ; Vitamin D deficiency E55.9 and Stomach pain R10.9 [facility] [address] [place] [facility] [address] FRANCOIS Garcia [id number] 03/28/2025 R Keegan Sandy [facility] [address] FR[place] Garcia [id number] 05/03/2024 R Keegan Sandy [facility] [address] FRAN[place]IS Garcia [id number] 07/11/2024 R Keegan Sandy [facility] [address] FRANCOIS Garcia [id number] 07/28/2024 R Keegan Sandy Lymphedema I89.0 [facility] [address] FRAN[place] Garcia [id number] 11/29/2024 R Keegan Sandy Assessments Encounter Date Diagnosis (ICD Code) Assessment Notes Treatment Notes Treatment Clinical Notes Section Notes 04/05/2024 Abdominal pain (ICD-10 - R10.9) resolved 04/05/2024 Edema (ICD-10 - R60.9) improved; will check labs; consider increasing Spironlactone; will continue with Torsemide QOD 07/08/2024 Lymphedema (ICD-10 - I89.0) 07/08/2024 Adult general medical examination (ICD-10 - Z00.00) Patient instructed to return to office Annually for Annual Wellness Visits to include annual screenings of Pain assessment, Functional Ability assessment, Cognitive Ability assessment, Fall Risk assessment, Depression screening and Bladder control screening. 07/28/2024 Lymphedema (ICD-10 - I89.0) 01/04/2025 Adult general medical examination (ICD-10 - Z00.00) Patient instructed to return to office Annually for Annual Wellness Visits to include annual screenings of Pain assessment, Functional Ability assessment, Cognitive Ability assessment, Fall Risk assessment, Depression screening and Bladder control screening. 01/04/2025 Chronic heart failure with preserved ejection fraction (HFpEF) (ICD-10 - I50.32) 02/28/2025 Acute lower urinary tract infection (ICD-10 - N39.0) good water intake 02/28/2025 Abdominal discomfort, epigastric (ICD-10 - R10.13) Sully diet without spicy, salty,acidic, greasy,carbona felipe drinks, or caffeine; discussed diet at length 03/14/2025 Stomach pain (ICD-10 - R10.9) Will go ahead and order CT scan and send in referral to gastro, watch the foods she eats; bland diet 03/14/2025 Polyarthritis (ICD-10 - M13.0) 03/15/2025 Polyarthritis (ICD-10 - M13.0) 03/15/2025 HLD (hyperlipidemia) (ICD-10 - E78.5) 03/15/2025 Hypothyroidism (ICD-10 - E03.9) 03/14/2025 HLD (hyperlipidemia) (ICD-10 - E78.5) 02/28/2025 Hyperlipidemia, unspecified hyperlipidemia type (ICD-10 - E78.5) 01/04/2025 Essential hypertension (ICD-10 - I10) 07/09/2024 Acquired hypothyroidism (ICD-10 - E03.9) 07/08/2024 Essential hypertension (ICD-10 - I10) 04/05/2024 Rectal bleeding (ICD-10 - K62.5) 07/08/2024 Acquired hypothyroidism (ICD-10 - E03.9) 07/09/2024 Hyperlipidemia, unspecified hyperlipidemia type (ICD-10 - E78.5) 01/04/2025 Acquired hypothyroidism (ICD-10 - E03.9) 02/28/2025 Type 2 diabetes mellitus with other specified complication, unspecified whether care home insulin use (ICD-10 - E11.69) 03/15/2025 Vitamin D deficiency (ICD-10 - E55.9) 03/14/2025 Lymphedema (ICD-10 - I89.0) continue with support hose 03/14/2025 Acquired hypothyroidism (ICD-10 - E03.9) 03/15/2025 Stomach pain (ICD-10 - R10.9) 07/09/2024 Type 2 diabetes mellitus (ICD-10 - E11.9) 02/28/2025 BMI 40.0-44.9, adult (ICD-10 - Z68.41) 01/04/2025 Type 2 diabetes mellitus (ICD-10 - E11.9) 07/08/2024 Type 2 diabetes mellitus (ICD-10 - E11.9) 07/08/2024 Postmenopausal (ICD-10 - Z78.0) 01/04/2025 Lymphedema (ICD-10 - I89.0) 07/09/2024 Essential (primary) hypertension (ICD-10 - I10) 02/28/2025 Morbid obesity (ICD-10 - E66.01) 03/14/2025 Vitamin D deficiency (ICD-10 - E55.9) 01/04/2025 Vitamin D deficiency (ICD-10 - E55.9) 07/08/2024 Colon cancer screening (ICD-10 - Z12.11) 07/08/2024 Chronic heart failure with preserved ejection fraction (HFpEF) (ICD-10 - I50.32) 01/04/2025 Knee joint replacement by other means (ICD-10 - Z96.659) 01/04/2025 BMI 40.0-44.9, adult (ICD-10 - Z68.41) 07/08/2024 Migraine headache (ICD-10 - G43.909) 07/08/2024 Knee joint replacement by other means (ICD-10 - Z96.659) 07/08/2024 Vitamin D deficiency (ICD-10 - E55.9) 07/08/2024 Urinary incontinence (ICD-10 - R32) 07/08/2024 BMI 39.0-39.9,adult (ICD-10 - Z68.39) 04/05/2024 Other has knee surgery in 3 weeks; will FU after to consider restrting Ozempic 07/08/2024 Other Pt will return to office for fasting labs: CMP, Lipid, A1c, TSH 03/14/2025 Other to return to office for labs as listed Plan Of Treatment Pending Test Test Name Order Date CBC Venipuncture (in house) 03/14/2025 CT Scan : Abd & Pelvis with and without IV contrast only 03/14/2025 P-Comprehensive Metabolic Panel (CMP) P-Arthritis Panel, [facility] 03/14/2025 P-Lipase 03/14/2025 P-Lipid Panel 03/14/2025 P-TSH 03/14/2025 P-Vitamin D, 1, 25 Dihydroxy 03/14/2025 Next Appt Details Provider Name:Phuong Lance, 03/28/2025 09:20:00 AM, [address], [address], [place], [place], [id number], Insurance Providers Payer Name Payer Address Payer Phone Subscriber Number Group Number Insured Name Patient Relationship to Insured Coverage Start Date Coverage End Date [employer] [address] [address] [place] [id number] DARIN NOEL Self - patient is the insured MEDICARE PART B [address] [address] [facility] [place] [address] [id number] DARIN NOEL Self - patient is the insured Medications Administered Medication Instructions Date of Administration Dosage Notes Depo- Medrol 40 mg/ml 06/13/2005 1 mL Depo- Medrol 40 mg/ml 06/13/2005 1 mL Depo- Medrol 40 mg/ml 02/06/2006 1 mL Depo- Medrol 40 mg/ml 10/11/2016 1.5 mL Depo- Medrol 40 mg/ml 01/08/2024 1.5 mL Dexamethasone 08/23/2008 1 mL Dexamethasone 08/07/2010 1 mL Dexamethasone 10/05/2018 1 mL Morphine 03/29/2011 5 mg phenergan 25 mg/ml 03/29/2011 25 mg Medical (General) History Medical History History ICD Code Hypercholestrolemia Migraine Headache FH of heart disease squamous cell carcinoma skin diverticulosis by CT 03/29/2011 Light Stroke- 08/31/2019 Irregular Heart Beat CHF - HFpEF Type 2 DM Surgical History Surgery Date(Month/Year) Hysterectomy arthroscopic knee surgery cholecystectomy skin cancer removal, [facility] Right Knee Replacement 06/2024 Hospitalization History Reason Date(Month/Year) TIA- [facility] 09/03/2019 TIA- [facility] 09/03/2019 Viral URI- [facility] 08/24/2018 Kidney Stone- [facility] ER 09/2012 Chest Pain- [facility] 06/09/2012
--- OUTSIDE RECORDS SUMMARY | 2025-03-28 09:39 | XMS_ITS | Data Portability ---
Author Organization [facility] ZOILA McduffieS [employer] CLOS[employer] Address [address] [place] [address] Care Team Providers Care Speeder Tender Name Role Phone LOYD JONES Primary Care Provider [phone] AUDREY MENDEZ Assurance Assistant [phone] Assessment No assessment recorded. Plan of Treatment Reminders Order Date Submit Date Provider Last Modified By Organization Details Last Modified Time Details Appointments FOLLOW UP [facility] 2024 09:30A Luci MENDEZ MD Not available Not available Not available Lab None recorded . Referral None recorded . Procedures None recorded . Surgeries None recorded . Imaging None recorded . Medication Orders None recorded . Patient TargetsNo targets recorded. Patient InstructionsNo instructions recorded. Reason for Referral None Reported. Problems Name Problem SNOMED Code Status Onset Date Resolution Date Notes Provider Name and Address Organization Details Recorded Time Solar lentiginosis 623454651 Active 2023 Coral Burton [facility] 11:22:44 Seborrheic keratosis 790433110 Active 2023 Coral Burton [facility] 4 11:22:44 Melanocytic nevus of skin 759782664 Active 2023 Coral Burton [facility] 4 11:22:44 Hemangioma of skin 53081332 Active 2023 Coral Burton [facility] 11:22:44 Problem Notes None recorded. Procedures Surgical History Date Name Laterality Status Provider Name and Address Organization Details Recorded Time DAK - Cryo AK completed Keegan Walker [facility] 09/11/2023 09:41:38 mohs surgery completed Celena Enamorado [facility] 09/11/2023 09:26:33 total replacement of hip completed Celena Enamorado [facility] 09/11/2023 09:26:51 total knee replacement completed Yenny Houser [facility] 09/24/2024 11:07:49 Imaging Results None recorded. Procedure Notes None recorded. Medical Equipment None Reported. Allergies Allergen ID Allergen Name Allergen Category Reaction Reaction Severity Criticality Documentation Date Start Date Code Code System Note Provider Name and Address Organization Details Recorded Time 211410 amoxicill in trihydrat e medicatio n Not available Not available Not available 09/05/20162011 14476 8 RxNorm Comme nt: Creat ed By: Rossitercary lópez;Cre ated Date: 2011 10:57 :04 AM; Not Available [facility] 6 10:28:18 013064 Macrobid medicatio n Not available Not available Not available 09/05/20162011 12138 1 RxNorm Comme nt: Creat ed By: Rossitercary lópez;Cre ated Date: 2011 10:57 :16 AM; Not Available [facility] 6 10:28:18 090093 Biaxin medicatio n Not available Not available Not available 09/05/2016201172 9 RxNorm Comme nt: Creat ed By: Jose lópez;Cre ated Date: 2011 10:56 :06 AM; Not Available [facility] 6 11:12:41 808085 Relafen medicatio n Not available Not available Not available 09/05/2016201175 4 RxNorm Comme nt: Creat ed By: Abdirashid tina lópez;Cre ated Date: 2011 10:56 :55 AM; Not Available [facility] 6 11:12:41 665215 Celebrex medicatio n Not available Not available Not available 09/06/2016201192 7 RxNorm Comme nt: Creat ed By: Ashcary lópez;Cre ated Date: 2011 10:56 :13 AM; Not Available [facility] 6 04:22:12 839987 Terramyci n medicatio n Not available Not available Not available 09/06/20162011 61751 4 RxNorm Comme nt: Creat ed By: [facility] tina lópez;Cre ated Date: 2011 10:55 :44 AM; Not Available [facility] 6 08:24:25 154357 azithromy soo medicatio n Not available Not available Not available 09/06/20162011 46299 RxNorm Comme nt: Creat ed By: [facility] tina lópez;Cre ated Date: 2011 10:57 :50 AM; Not Available [facility] 6 08:24:25 326224 Vioxx medicatio n Not available Not available Not available 09/06/20162011 07311 9 RxNorm Comme nt: Creat ed By: [facility] tina lópez;Cre ated Date: 2011 10:57 :27 AM; Not Available [facility] 6 08:24:25 742830 Cedax medicatio n Not available Not available Not available 09/11/2023 19267 6 [facility]Norm [facility] 09:23:44 292915 tolmetin sodium medicatio n Not available Not available Not available 09/11/2023 40340 RxNorm Celena Hignite null, [facility] 3 09:23:52 842368 Zaroxolyn medicatio n Not available Not available Not available 09/11/2023 76482 4 RxNorm Celena Hignite null, [facility] 3 09:24:09 44612 Substance with sulfonami de structure and antibacte rial mechanism of action (substanc e) medicatio n Not available Not available Not available 09/05/20162011 23237 8003 SNOMED Comme nt: Creat ed By: Ashcr aft Cathy n;Cre ated Date: 2011 10:55 :31 AM; Not Available [facility] 6 10:09:42 Medications Name Sig Start Date Stop Date Status Note LastModified by Organization Details LastModified Time Multiple Vitamin capsule Daily active Frequency : daily;Med ication Descripti on: multivita min; Dosage:1; Route:ora l; refills:0 Not Available Not Available Not Available spironolac tone 25 mg tablet active Medicatio n Descripti on: spironola ctone; Route:ora l; refills:0 Not Available Not Available Not Available Prilosec OTC 20 mg tablet,del ayed release active Medicatio n Descripti on: omeprazol e; Route:ora l; refills:0 Not Available Not Available Not Available Vitamin C 09/11 completed Medicatio n Descripti on: ascorbic acid; Route:ora l; refills:0 Not Available Not Available Not Available vitamin B complex 09/11 completed Medicatio n Descripti on: multivita min; refills:0 Not Available Not Available Not Available Fish Oil 09/11 completed Medicatio n Descripti on: omega-3 polyunsat urated fatty acids; Route:ora l; refills:0 Not Available Not Available Not Available torsemide active Not Available Not Vanessa ilable Not Available terazosin 09/24 completed Not Available Not Available Not Available [place]-3 active Medicatio n Descripti on: omega-3 polyunsat urated fatty acids; Route:ora l; refills:0 Not Available Not Available Not Available Vitamin D3 09/11 completed Medicatio n Descripti on: cholecalc iferol; Route:ora l; refills:0 Not Available Not Available Not Available Glucosamin e-Chondrot in 09/11 completed Medicatio n Descripti on: miscellan eous; refills:0 Not Available Not Available Not Available CoQ-10 30 mg capsule active Medicatio n Descripti on: ubiquinon e; Route:ora l; refills:0 Not Available Not Available Not Available Jardiance active Not Available Not Vanessa ilable Not Available Entresto active Not Available Not Avai lable Not Available Vitals None Recorded Social History Question Answer Notes LastModified by Organizat ion Details LastModified Time Tobacco Smoking Status Never Smoker Celena Enamorado [facility] 09/11/2023 09:26:16 What Was The Date Of Your Most Recent Tobacco Screening? 09/24/2024 [email or web address] Information not available 09/24/2024 Sex: Female Functional Status Question Answer Note LastModified by Organizat ion Details LastModified Time Do you use any illicit or recreational drugs? No Information not available 09/11/2023 Do you or have you ever used any other forms of tobacco or nicotine? No Information not available 09/11/2023 What is your level of alcohol consumption? None Information not available 09/11/2023 Mental Status None recorded. Family History Relationship Description Onset Age of this Age Resolved Age Notes LastModified by Organization Details LastModified Time Father Malignant melanoma Not available 2022 09:21:01 Medical History Condition Response Squamous Cell Carcinoma Y Basal Cell Carcinoma Y Skin Cancer Y Gynecological HistoryNo gynecological history recorded. Obstetrics History GPAL:G 0 P 0 0 0 0 Past Encounters Encounter ID Performer Location Encounter Start Date Encounter Closed Date Diagnosis/Indication Diagnosis SNOMED-CT Code Diagnosis ICD10 Code Diagnosis Note [id number] AUDREY MENDEZ MD [address] [address] 09/11/2023 08:48:03 09/11/2023 09:52:18 Melanocytic nevus of skin 794079070 D22.5 Reassuranc e given. Solar lentiginosis 32643 2006 L81.4 Reassuranc e given. Zinc and titanium SPF30+ sunscreen recommende d Seborrheic keratosis 394 213851 L82.1 Reassuranc e given Hemangioma of skin 29201 006 D18.01 Reassuranc e given Family his tory of malignant melanoma 369841483 Z80.8 Father (fatal). Actinic keratosis 923042 007 L57.0 Pre cancerous lesions.Wi ll treat with LN2 today. History of malignant neoplasm of skin 307438201 Z85.828 No evidence of recurrence today. 03/2023. [id number] AUDREY MENDEZ MD [address] [place] [address] 09/24/2024 10:17:42 09/24/2024 11:38:03 Melanocytic nevus of skin 007185347 D22.5 Benign lesion(s) assessed 1. L medial calf - asymmetric slightly irregular 6mm triangular shaped two toned brown macule- Suspicious ly atypical nevi noted. Offered to Bx vs monitor, opted to monitor lesion. Jossie recheck in 6 months, pt to reach out if changing Solar lentiginosis 81870 2006 L81.4 Benign lesion(s) assessed Zinc and titanium SPF30+ sunscreen recommende d Hemangioma of skin 22647 006 D18.01 Benign lesion(s) assessed History of malignant neoplasm of skin 851033944 Z85.828 - 03/2023- No evidence of recurrence today Health Concerns Section Related Observation LastModified by Organization Detai ls LastModified Time None Recorded Concern Status LastModified by Organization Details LastModified Time None Recorded Advance Directives Directive None Recorded Payers Insurance Date Sequence Insurance Name Policy Number Policy Pham Covered Member ID Pham Member ID Guarantor Name 09/24/2024 1 [employer] (MEDICARE REPLACEMENT/ ADVANTAGE - PPO) [id number] Mindy Berman [id number] Mindy Berman Notes Date Note Type Note Provider Name and Address Organization Details Recorded Time 09/11/2023 text/html I have different spots on my skin that I'd like to be checked Extent of skin exam requested:full AUDREY MENDEZ MD [address] [place], [address], [facility] 09/13/2023 20:55:52 09/24/2024 text/html I am here for my skin check. History of BCC/SCCR Forearm, R lower leg, L pretibial leg few moles that look different- left leg and right leg AUDREY MENDEZ MD [address] [place], [address], [facility] 09/24/2024 18:45:40 OBGyn Episode No OBEpisode recorded.
[2025-03-28] MEDS: IOPAMIDOL-370 (76%);100ML BOTTLE 75 ML IV (10:41)
[2025-03-28] MEDS: SODIUM CHLORIDE 0.9% 10ML SYR (RAD ONLY) 10 ML IV (10:41)
== END 2025-03-28 23:59 | disposition home or self-care (01) ==
LOC: RAD 09:35
PROVIDERS: PCP Family Medicine; Visit Provider Nurse Practitioner Family
DX: K42.9 Umbilical hernia without obstruction or gangrene (principal)
CPT/HCPCS: 74178; Q9967

== ENCOUNTER 2025-05-12 11:07 | Outpatient (CLI) | payer MEDICARE, SELFPAY ==
--- OUTSIDE RECORDS SUMMARY | 2025-02-28 05:30 | XMS_ITS ---
Author Organization [facility] Address [address] [place] [id number] Care Team Providers Care Plasma Specialist Name Role Phone Phuong Delgado Primary Care Provider Obdulia Sutton Unavailable [phone] Allergies Allergen (clinical drug ingredient) Drug/Non Drug [...] Interpretation: Performing Lab: Notes/Report: Test performed by [employer], [employer] [address] [place] [address] , [address], [place] [address] Dave Topete MD, Wood Tile Installation Helper JACE: [id number] Specimen Source Urine - Void Culture, Urine [...] mellitus with other specified complication, unspecified whether correction insulin use (E11.69) Active confirmed Problem Morbid obesity (078528178) Morbid obesity (E66.01) Active confirmed Vital Signs Blood pressure systolic 130 mm Hg 02/29/20 25 Blood pressure diastolic 80 mm Hg 025 Heart Rate 81 /min 02/28/2025 Height 66 in 02/28/2025 Weight 261.0 lbs 02/28/2025 BMI 42.12 kg/m2 02/28/2025 Encounters Encounter Location Date Provider Diagnosis [facility] [address] [facility] [address] [place] [id number] 02/28/2025 Obdulia Sutton Acute lower urinary tract infection N39.0 ; Abdominal discomfort, epigastric R10.13 ; Hyperlipidemia, unspecified hyperlipidemia type E78.5 ; Type 2 diabetes mellitus with other specified complication, unspecified whether correction insulin use E11.69 ; BMI 40.0-44.9, adult Z68.41 and Morbid obesity E66.01 Assessments Encounter Date Diagnosis (ICD Code) Assessment Notes Treatment Notes Treatment Clinical Notes Section Notes 02/28/2025 Acute lower urinary tract infection (ICD-10 - N39.0) good water intake 02/28/2025 Abdominal discomfort, epigastric (ICD-10 - R10.13) [place] diet without spicy, salty,acidic, greasy,carbon ated drinks, or caffeine; discussed diet at length 02/28/2025 Hyperlipidemia, unspecified hyperlipidemia type (ICD-10 - E78.5) 02/28/2025 Type 2 diabetes mellitus with other specified complication, unspecified whether termite exterminator insulin use (ICD-10 - E11.69) 02/28/2025 BMI [...] infection good water intake Abdominal discomfort, epigastric [place] d iet without spicy, salty,acidic, greasy,carbonated drinks, or caffeine; discussed diet at length Next Appt Details Follow Up: 1 Week, Reason: Progress Notes * MELI NOELDIAB: 7 (70 yo F)Acc No.zz [id number]:02/28/2025 Progress Notes Patient: DARIN PABLO Account Number:[id number] Provider: QUINTIN Garza :1955 A ge:69 Y S ex:Female Date:02/28/2025 Address:[facility] [address], [facility], [id number] Pcp:Phuong Delgado Subjective: * Chief Complaints: * [...] Hospitalization/Major Diagno stic Procedure: C hest Pain- [facility] 06/09/2012, Kidney Stone- [facility] ER 09/2012, Viral URI- [facility] 08/24/2018, TIA- [facility] 09/03/2019, TIA- 09/03/2019. * Family History: F [...] mellitus with other specified complication, unspecified whether correction insulin use - E11.69 5 . B [place] 40.0-44.9, adult - Z68.41 6 . M [...] Once a day, 30 day(s), 30.?? Notes: [place] diet without spicy, salty,acidic, greasy,carbonated drinks, or [...] MOST RECENT DIASTOLIC BP < 90MM [place], [address] Urinalysis, no micro * Follow Up: 1 Week * Images: Billing Information: * Visit Code: 82168 Office Visit, Est Pt., Level 4. * Procedure Codes: G2211 Complex e/m visit add on. G8752 MOST RECENT SYSTOLIC BP < 140MM HG. G8754 MOST RECENT DIASTOLIC BP < 90MM HG. [address] Urinalysis, no micro. * Electronic signature of Ny greenwood Herman , KELSEA on 05/12/2025 at 11:10 AM EDT Sign off status: Pending * Provider: QUINTIN Garza Date: 0 02/28/2025 Generated for Ish salazar/Andry/Ana Paulasmitting on: 0 05/12/2025 11:10 AM EDT History and Physical Notes * [...]
--- OUTSIDE RECORDS SUMMARY | 2025-03-14 06:00 | XMS_ITS ---
Author Organization [facility] Address [address] [place] [phone] Care Team Providers Care Occupational Therapy Aides Teacher Name Role Phone Phuong Delgado Primary Care Provider Obdulia Sutton Unavailable [phone] Allergies Allergen (clinical drug ingredient) Drug/Non Drug [...] Status W/U Status Risk Notes Problem Polyarthritis (020113848) Polyarthritis (M13.0) Active confirmed Problem Hyperlipidaemia (32878180) HLD (hyperlipidemia) (E78.5) Active confirmed Vital Signs Blood pressure systolic 126 mm Hg 03/14/20 25 Blood pressure diastolic 80 mm Hg 025 Heart Rate 81 /min 03/14/2025 Height 66 in 03/14/2025 Weight 256.0 lbs 03/14/2025 BMI 41.31 kg/m2 03/14/2025 Encounters Encounter Location Date Provider Diagnosis [facility] [address] [place] [phone] 03/14/2025 Obdulia Sutton Polyarthritis M13.0 ; Stomach [...] Follow Up: after CT prn, [place] son: Progress Notes * SERGIO NOEL: 7 (70 yo F)Acc No.zz [id number]:03/14/2025 Progress Notes Patient: DARIN PABLO Account Number:[id number] Provider: QUINTIN Garza :1955 A ge:69 Y S ex:Female Date:03/14/2025 Address:[address] [place] [address] , [place], [id number] Pcp:Phuong Delgado Subjective: * Chief Complaints: * [...] Hospitalization/Major Diagno stic Procedure: C hest Pain- [facility] 06/09/2012, Kidney Stone- [facility] ER 09/2012, Viral URI- [facility] 08/24/2018, TIA- [facility] 09/03/2019, TIA- 09/03/2019. * Family History: F [...] G 2211 Complex e/[place], [address] CBC WITH AUTO DIFF, 82133 VENIPUNCT, ROUTINE*, 1036F TOBACCO NON-USER, G8752 MOST RECENT SYSTOLIC BP < 140MM HG, G8754 MOST RECENT DIASTOLIC BP < 90MM HG * Follow Up: a fter CT prn * Images: Billing Information: * Visit Code: 26844 Office Visit, Est Pt., Level 3. * Procedure Codes: G2211 Complex e/[place]. [address] CBC WITH AUTO DIFF. 77283 VENIPUNCT, ROUTINE*. 1036F TOBACCO NON-USER. G8752 MOST RECENT SYSTOLIC BP < 140MM HG. G8754 MOST RECENT DIASTOLIC BP < 90MM HG. * Electronic signature of Ny Sutton APRN on 05/12/2025 at 11:09 AM EDT Sign off status: Pending * Provider: QUINTIN Garza Date: 0 03/14/2025 Generated for Ish salazar/Andry/Melinda on: 0 05/12/2025 11:09 AM EDT History and Physical Notes * [...]
--- OUTSIDE RECORDS SUMMARY | 2025-03-15 05:00 | XMS_ITS ---
Author Organization [facility] Address [address] [facility] [address] [place] [id number] Care Team Providers Care Information Technology Security Analyst Name Role Phone Phuong Delgado Primary Care Provider Obdulia Sutton Unavailable [phone] Results Component Value Reference Range Notes CBC [...] 144 Performing Lab: Notes/Report: Test performed by [employer], [employer] [facility] [facility] , [address], [place] [address] Dave Topete MD, Cut Off Sawyer Log CLIA: [id number] Sodium 143 135-145 mmol/L Potassium 4.3 3.5-5.3 [...] mg/dL A/G Ratio 1.7 1.1-2.5 [facility], [facility] Reviewed date:03/21/2025 01:08:58 PM Interpretation: Performing Lab: Notes/Report: Test performed by [employer] [address] [place], [place] [address] [address] , [address], [place] [address] Dave Topete MD, Cut [employer] CLIA: [id number] Erythrocyte Sedimentation Rate (ESR), Automated 31 <31 mm/hr Rheumatoid Factor <10 <14.1 IU/mL C-Reactive Protein (CRP) 0.93 <0.50 mg/dL Antinuclear Antibodies (ELLY) Screen, Reflex ELLY 9 Panel Negative Negative This test is performed by Multiplex Bead Immunoassay methodology. Antinuclear Antibodies (ELYL) Result Note SEE COMMENT For positive Autoantibodies, please refer to the interpretive chart here: [email or web address] [email or web address] CCP Antibodies <0.5 <0.5-3.0 U/mL P-Lipase Reviewed date:03/21/2025 01:09:44 PM Interpretation:31.8 Performing Lab: Notes/Report: Test performed by [employer] [address] [place], [place] [address] [address] , [address], [place] [address] Dave Topete MD, [employer] CLIA: [id number] Lipase 31.8 13.0-60.0 u/L P-Lipid Panel Reviewed date:03/21/2025 01:10:10 PM Interpretation:HDL 51; LDL 114; TG 92 Performing Lab: Notes/Report: Test performed by [employer] [address] [place], [place] [address] [address] , [address], [place] [address] Dave Topete MD, [employer] CLIA: [id number] Cholesterol 183 <200 mg/dL Triglycerides 92 <150 [...] Interpretation:0.73 Performing Lab: Notes/Report: Test performed by [employer] [address] [place] [address] , [address], [place] [address] Dave Topete MD, [employer] CLIA: [id number] TSH 0.73 0.43-5.25 mU/L P-Vitamin D, 1, 25 Dihydroxy Reviewed date:03/21/2025 01:10:58 PM Interpretation:31.2 Performing Lab: Notes/Report: Test performed by [employer] [address] [place] [address] , [address], [place] [address] Dave Topete MD, [employer] CLIA: [id number] Vitamin D, 1, 25 Dihydroxy 31.2 19.9-79.3 [...] Provider Diagnosis [facility] [address] [place] [id number] 03/15/2025 Obdulia Sutton Polyarthritis M13.0 ; HLD [...] * YESSICA NOELB: (70 yo F)Acc No.[id number]:03/15/2025 Patient: DARIN PABLO Account Number:[id number] Provider: QUINTIN Garza :1955 A ge:69 Y S ex:Female Date:03/15/2025 Address:[facility] [address], [place], [id number] Pcp:Phuong Delgado Subjective: * Chief Complaints: * [...] Information: * Visit Code: * Procedure Codes: 00651 CBC WITH AUTO DIFF. * Electronic signature of Ny Sutton APRN on 05/12/2025 at 11:10 AM EDT Sign off status: Pending * Provider: QUINTIN Garza Date: 03/15/2025 Generated for Aliyai ng/Fabrittanyg/eTransmitting on: 0 05/12/2025 11:10 AM EDT
--- NOTE | 2025-05-12 | CA_ITS ---
APPROVED REPORT Exam: Pharmacologic Technologist: Elba Wise Ht: 5 ft 5 in Wt: 263 lbs BSA: 2.22 m2 HR: 62 bpm BP: 162/90 mmHg Stress Test Details Test: Lexiscan HR Resting HR: 62 bpm Max Heart Rate (APMHR): 152.473639 bpm Target HR (85% APMHR): 129.246521 bpm Recovery HR: 70 bpm BP Resting BP: 162.0/90.0 mmHg Max BP: 178.0/94.0 mmHg Recovery BP: 167.0/96.0 mmHg ECG Stress ECG Conclusion Pt had soa EKG nondiagnostic - Dary Electronically signed by : Molly Sultana MD 05/13/2025 13:07:09
--- OUTSIDE RECORDS SUMMARY | 2025-05-12 11:10 | XMS_ITS | Patient Health Record ---
[facility] Address [address] [place] [id number] Care Team Providers Care Cold Type Composing Machine Operator Name Role Phone Phuong Delgado Primary Care Provider Obdulia Sutton Unavailable [phone] Allergies Allergen (clinical drug ingredient) Drug/Non Drug [...] Interpretation:Umbilical Hernia Performing Lab: Notes/Report: Umbilical Hernia CBC Venipuncture (in house) Reviewed date:03/21/2025 09:41:13 [...] - 38 platlet 251 100 - 400 P-Culture, Urine Reviewed date:03/09/2025 04:23:27 PM Interpretation: Performing Lab: Notes/Report: Test performed by [employer] [address] , [address], [place] [address] Dave Topete MD, Cath Lab CLIA: [id number] Specimen Source Urine - Void Culture, Urine [...] Tobramycin S Trimeth/Sulfa S S=SUSCEPTIBLE I=INTERMEDIATE R=RESISTANT Urinalysis - Inhouse Reviewed date:02/28/2025 03:03:49 PM Interpretation: Performing Lab: Notes/Report: Color/Clarity yellow/cloudy Leuk 1+ Nitrite Neg Urobili 3.2 Protein Neg pH 5.5 Blood Trace-intact Sp. Gr. 1.020 Ketone Trace Bili Neg Gluc Neg Bone density Reviewed date:07/20/2024 04:04:57 PM Interpretation:Normal Performing Lab: Notes/Report: Normal colonoscopy Reviewed date:01/03/2025 04:27:07 PM Interpretation:polyps, diverticulosis, hemorrhoids, repeat 5 years Performing Lab: Notes/Report: polyps, diverticulosis, hemorrhoids, repeat 5 years result: polyps, diverticulosis, hemorrhoids repeat study: 5 years Glycohemoglobin A1c (in hous e) Reviewed date:07/11/2024 10:31:01 PM Interpretation:6.0% Performing Lab: Notes/Report: 6.0% glycohemoglobin 6.0% 5 - 6.5 % P-Comprehensive Metabolic Pa med (CMP) Reviewed date:07/11/2024 10:31:00 PM Interpretation: Performing Lab: Notes/Report: Test performed by [employer] [facility] , [address], [place] [address] Dave Topete MD, Cath Lab CLIA: [id number] Sodium 142 135-145 mmol/L Potassium 4.3 3.5-5.3 [...] Interpretation: Performing Lab: Notes/Report: Test performed by [employer], [address] , [place] [address] Dave Topete MD, Cath Lab CLIA: [id number] Cholesterol 173 <200 mg/dL Triglycerides 132 <150 [...] Interpretation: Performing Lab: Notes/Report: Test performed by [facility] [address] [place] [address] , [place] [address] Dave Topete MD, Cath Lab CLIA: [id number] TSH 1.50 0.43-5.25 mU/L P-Comprehensive Metabolic Pa med (CMP) Reviewed date:03/21/2025 01:09:21 PM Interpretation:BS 144 Performing Lab: Notes/Report: Test performed by [employer] [address] [place] [address] , [address], [place] [address] Dave Topete MD, Cath Lab CLIA: [id number] Sodium 143 135-145 mmol/L Potassium 4.3 3.5-5.3 [...] mg/dL A/G Ratio 1.7 1.1-2.5 P-Arthritis Panel, [facility] Reviewed date:03/21/2025 01:08:58 PM Interpretation: Performing Lab: Notes/Report: Test performed by [employer] [address] [place] [address] , [place] [address] Dave Topete MD, Cath Lab CLIA: [id number] Erythrocyte Sedimentation Rate (ESR), Automated 31 <31 mm/hr Rheumatoid Factor <10 <14.1 IU/mL C-Reactive Protein (CRP) 0.93 <0.50 mg/dL Antinuclear Antibodies (ELLY) Screen, Reflex ELLY 9 Panel Negative Negative This test is perform ed by Multiplex Bead Immunoassay methodology. Antinuclear Antibodies (ELLY) Result Note SEE COMMENT For positive Autoantibodies, please refer to the interpretive chart here: [email or web address] CCP Antibodies <0.5 <0.5-3.0 U/mL P-Lipase Reviewed date:03/21/2025 01:09:44 PM Interpretation:31.8 Performing Lab: Notes/Report: Test performed by [facility] [address] [place] [address] [place] [address] Dave Topete MD, Cath Lab CLIA: [id number] Lipase 31.8 13.0-60.0 u/L P-Lipid Panel Reviewed date:03/21/2025 01:10:10 PM Interpretation:HDL 51; LDL 114; TG 92 Performing Lab: Notes/Report: Test performed by [facility] [address] [place] [address] , [place] [address] Dave Topete MD, Cath Lab CLIA: [id number] Cholesterol 183 <200 mg/dL Triglycerides 92 <150 [...] Interpretation:0.73 Performing Lab: Notes/Report: Test performed by [employer] [address] [place] [address] , [address], [place] [address] Dave Topete MD, Cath Lab CLIA: [id number] TSH 0.73 0.43-5.25 mU/L P-Vitamin D, 1, 25 Dihydroxy Reviewed date:03/21/2025 01:10:58 PM Interpretation:31.2 Performing Lab: Notes/Report: Test performed by [employer], [address] , [address], [place] [address] Dave Topete MD, Cath Lab CLIA: [id number] Vitamin D, 1, 25 Dihydroxy 31.2 19.9-79.3 pg/mL Pathology evaluation Reviewed date:01/10/2025 10:33:01 AM Interpretation:tubular adenomas - colon Performing Lab: Notes/Report: tubular adenomas - colon Glycohemoglobin (HbA1C) Reviewed date:01/03/2025 04:29:35 PM Interpretation:6.2 Performing Lab: Notes/Report: 6.2 glycohemoglobin 6.2 Medications Medication SIG (Take, Route, Frequency, Duration) [...] a day; Duration: 30 day(s) 01/30/2016 Active Jardiance 10 MG [...] y 12 hrs; Duration: 3 days Not-Taking Spironolactone 50 MG 1 tablet Orally Onc e a day Active Levothyroxine Sodium 75 mcg 1 tablet orally once a day; Duration: 30 days Active PriLOSEC OTC 20 MG 2 tab(s) [...] W/U Status Risk Notes Problem Essential hypertension (49011720) Essential (primary) hypertension (I10) Active confirmed Problem Type 2 diabetes mellitus (07873120) Type 2 diabetes mellitus (E11.9) Active confirmed Problem Sciatica (24864610) Sciatica (M54.30) Active confirmed Problem Vitamin D deficiency (92854426) Vitamin D deficiency (E55.9) Active confirmed Problem Essential hypertension (09703985) Essential hypertension (I10) Active confirmed Problem Morbid obesity (014212523) Morbid obesity (E66.01) Active confirmed Problem Urinary incontinence (996677349) Urinary incontinence (R32) Active confirmed Problem Venous insufficiency of leg (disorder) (056255754) Venous insufficiency (I87.2) Active confirmed Problem Lymphedema (23529086) Lymphedema (I89.0) Active confirmed Problem Acquired hypothyroidism (598046118) Acquired hypothyroidism (E03.9) Active confirmed Problem Reactive depression (situational) (48020366) Situational depression (F43.21) Active confirmed Problem Hypothyroidism (54999899) Hypothyroidism (E03.9) Active confirmed Problem Polyarthritis (945851369) Polyarthritis (M13.0) Active confirmed Problem Body mass index 40+ - morbidly obese (110953307) BMI 40.0-44.9, adult (Z68.41) Active confirmed Problem Hyperlipidaemia (76480864) Hyperlipidemia, unspecified hyperlipidemia type (E78.5) Active confirmed Problem Migraine variant with headache (disorder) (708954047) Migraine headache (G43.909) Active confirmed Problem Transient ischemic attack (250408968) TIA (transient ischemic attack) (G45.9) Active confirmed Problem Hyperlipidaemia (83709579) HLD (hyperlipidemia) (E78.5) Active confirmed Problem Obese class II (291795657200309) BMI 39.0-39.9,adult (Z68.39) Active confirmed Problem Complicated migraine (790925859) Complicated migraine (G43.109) Active confirmed Problem Artificial knee joint present (772963204990) Knee joint replacement by other means (Z96.659) Active confirmed Problem Stasis dermatitis of left lower extremity due to peripheral venous hypertension (592327058120078) Stasis dermatitis of left lower extremity due to peripheral venous hypertension (I87.322) Active confirmed Problem Type 2 diabetes mellitus with other specified complication, unspecified whether ad terminal makeup operator insulin use (E11.69) Active confirmed Problem Chronic diastolic heart failure (702328233) Chronic heart failure with preserved ejection fraction (HFpEF) (I50.32) Active confirmed Vital Signs Heart Rate 81 /min 03/14/2025 Blood pressure diastolic 80 mm Hg 03/14/2025 Height 66 in 03/14/2025 Blood pressure systolic 126 mm Hg 03/14/2025 Weight 256.0 lbs 03/14/2025 BMI 41.31 kg/m2 03/14/2025 Encounters Encounter Location Date Provider Diagnosis [facility] [address] [place] [id number] 07/08/2024 R Keegan Delgado Adult general medica l examination Z00.00 [...] Urinary incontinence R32 and BMI 39.0-39.9,adult Z68.39 [facility] [address] [place] [id number] 07/09/2024 Phuong Delgado Acquired hypothyroid ism E03.9 ; Hyperlipidemia, unspecified hyperlipidemia type E78.5 ; Type 2 diabetes mellitus E11.9 and Essential (primary) hypertension I10 [facility] [address] [place] [id number] 01/04/2025 Phuong Delgado Adult general medica l examination Z00.00 ; Chronic heart failure with preserved ejection fraction (HFpEF) I50.32 ; Essential hypertension I10 ; Acquired hypothyroidism E03.9 ; Type 2 diabetes mellitus E11.9 ; Lymphedema I89.0 ; Vitamin D deficiency E55.9 ; Knee joint replacement by other means Z96.659 and BMI 40.0-44.9, adult Z68.41 [facility] [address] [place] [id number] 02/28/2025 Obdulia Sutton Acute lower urinary tract infection N39.0 ; Abdominal discomfort, epigastric R10.13 ; Hyperlipidemia, unspecified hyperlipidemia type E78.5 ; Type 2 diabetes mellitus with other specified complication, unspecified whether ad terminal makeup operator insulin use E11.69 ; BMI 40.0-44.9, adult Z68.41 and Morbid obesity E66.01 [facility] [address] [place] [id number] 03/14/2025 Obdulia Sutton Polyarthritis M13.0 ; Stomach pain R10.9 ; HLD (hyperlipidemia) E78.5 ; Lymphedema I89.0 ; Acquired hypothyroidism E03.9 and Vitamin D deficiency E55.9 [facility] [address] [place] [id number] 03/15/2025 Obdulia Sutton Polyarthritis M13.0 ; HLD (hyperlipidemia) E78.5 ; Hypothyroidism E03.9 ; Vitamin D deficiency E55.9 and Stomach pain R10.9 [facility] [address] [place] [id number] 07/11/[address] [facility] [address] [place], [place] [id number] 07/28/2024 R Keegan Delgado Lymphedema I89.0 [place] [address] [place], [place] [id number] 11/29/2024 R Keegan Delgado [facility] [address] [place] [id number] 03/28/2025 R Keegan Delgado [facility] [address] [place], [place] [id number] 03/30/2025 Obdulia Sutton Assessments Encounter Date Diagnosis (ICD Code) Assessment Notes Treatment Notes Treatment Clinical Notes Section Notes 07/08/2024 Lymphedema (ICD-10 - I89.0) 07/08/2024 Adult [...] 02/28/2025 Abdominal discomfort, epigastric (ICD-10 - R10.13) [place] diet without spicy, salty,acidic, greasy,carbona felipe drinks, [...] E03.9) 07/08/2024 Essential hypertension (ICD-10 - I10) 07/08/2024 Acquired hypothyroidism (ICD-10 - E03.9) 07/09/2024 Hyperlipidemia, unspecified hyperlipidemia type (ICD-10 - E78.5) 01/04/2025 Acquired hypothyroidism (ICD-10 - E03.9) 02/28/2025 Type 2 diabetes mellitus with other specified complication, unspecified whether ad terminal makeup operator insulin use (ICD-10 - E11.69) 03/14/2025 Lymphedema (ICD-10 - I89.0) continue with support hose 03/15/2025 Vitamin D deficiency (ICD-10 - E55.9) 03/15/2025 Stomach pain (ICD-10 - R10.9) 03/14/2025 Acquired hypothyroidism (ICD-10 - E03.9) 07/09/2024 Type 2 diabetes mellitus (ICD-10 - E11.9) 02/28/2025 BMI 40.0-44.9, adult (ICD-10 - Z68.41) 01/04/2025 Type 2 diabetes mellitus (ICD-10 - E11.9) 07/08/2024 Type 2 diabetes mellitus (ICD-10 - E11.9) 07/08/2024 Postmenopausal (ICD-10 - Z78.0) 07/09/2024 Essential (primary) hypertension (ICD-10 - I10) 03/14/2025 Vitamin D deficiency (ICD-10 - E55.9) 01/04/2025 Lymphedema (ICD-10 - I89.0) 02/28/2025 Morbid obesity (ICD-10 - E66.01) 01/04/2025 Vitamin D deficiency (ICD-10 - E55.9) [...] R32) 07/08/2024 BMI 39.0-39.9,adult (ICD-10 - Z68.39) 07/08/2024 Other Pt will return to office for fasting labs: CMP, Lipid, A1c, TSH 03/14/2025 Other to return to office for labs as listed Plan Of Treatment Pending Test Test Name Order Date CBC Venipuncture (in house) 03/14/2025 P-Comprehensive Metabolic Panel (CMP) P-Arthritis Panel, [facility] 03/14/2025 P-Lipase 03/14/2025 P-Lipid Panel 03/14/2025 P-TSH 03/14/2025 P-Vitamin D, 1, 25 Dihydroxy 03/14/2025 Insurance Providers Payer Name Payer Address Payer Phone Subscriber Number Group Number Insured Name Patient Relationship to Insured Coverage Start Date Coverage End Date [employer] [address] [address] [place] [address] [id number] DARIN NOEL Self - patient is the insured MEDICARE PART B [address] [address] [place] [address] [id number] DARIN NOEL Self - patient is the [...] removal, legs bilaterally right hip replacement Dr Dago Vargas 09/14/2014 Total Right Knee Replacement 06/2024 Hospitalization History Reason Date(Month/Year) TIA- 09/03/2019 [facility]- [facility] 09/03[place]2019 [place] [facility] [place] Kidney Stone- [facility] 09/2012 Chest Pain- [facility] 06/09/2012
--- OUTSIDE RECORDS SUMMARY | 2025-05-12 11:10 | XMS_ITS | Clinical Summary ---
Author Organization [facility] Address [address] [place] [address] Phone Care Team Providers Care Skimmer Scoop Operator Name Role Phone Unavailable Primary Care Provider [...] Oral CapsuleIndicat ions:Urinary frequency Daily Active omega 1-kjg-uhb-fish oil 1,000 mg (250 mg-750 mg)/5 mL [...] season) 2024 08/29/2021, 12/13/2020, 11/15/2020 Influenza Vaccine (#1) 2025 , 10/16/2020, 07/19/2019 Breast Cancer Screening 10/10/2025 10/10/20 [...]
--- OUTSIDE RECORDS SUMMARY | 2025-05-12 11:10 | XMS_ITS | Clinical Summary ---
Author Organization [employer] ([place], [place], [place], [place]) Address [address] [place] [address] Care Team Providers Care Segment Block Layer Name Role Phone Unavailable Primary Care Provider Unavailabl e Social History Tobacco Use Types Packs/Day Years Used Date Smoking Tobacco: Never Assessed Food Insecurity Answer Date Recorded Food run [...] Date Joseph rded Speak language other than Yakut at home Not on file 03/23/2024 Want help with school or training Not on file 03/23/2024 Substance Use Answer Date Recorded Used [...] 11/15/2020 Falls Risk Screening 10/13/2024 Influenza Vaccine (#1) 2025 10/16/2020 Respiratory Syncytial Virus (RSV) Adult or (1 - 1-dose 75+ series) 2032 Pneumococcal 50+ years Completed 08/13/2023
--- OUTSIDE RECORDS SUMMARY | 2025-05-12 11:10 | XMS_ITS | Referral Summary ---
Author Organization [facility] ([place], [place], [place], [place]) Address [address] [place] [address] Care Team Providers Care Cook Cold Meat Name Role Phone Unavailable Primary Care Provider [...] Date Joseph rded Speak language other than Divehi at home Not on file 03/23/2024 Want [...]
--- OUTSIDE RECORDS SUMMARY | 2025-05-12 11:10 | XMS_ITS | Clinical Summary ---
[facility] Address [address] [place] [address] Care Team Providers Care Screen Printing Equipment Setter Name Role Phone Randell Delgado MD Primary Care Provider Family History Medical History Relation Name Comments Breast cancer Maternal Cousin 1ST DX AGE LATE 30'S - EARLY 40'S Endometrial cancer Neg Hx Ovarian cancer Neg Hx Relation Name Status Comments Maternal Cousin 1ST Social History Tobacco Use Types Packs/Day Years Used Date Smoking Tobacco: Never Assessed Comments No Sex and Gender Information Value Date Recorded Sex Assigned at Not on file Legal Sex Female 10:12 AM EDT Gender Identity Not on file Sexual Orientation Not on file Plan of Treatment Health Maintenance Due Date Last Done Comments ANNUAL WELLNESS VISIT 1955 DXA SCAN 1957 HEPATITIS C SCREENING 1957 TDAP/TD VACCINES (1 - Tdap) 1976 COLOGUARD 2002 COLON CANCER SCREENING 5 YEA R SIGMOIDOSCOPY 2002 COLONOSCOPY [address]ER SCREENING 2002 CT COLONOGRAPHY 2002 FECAL OCCULT BLOOD TEST 2002 FIT Testing (1 year) 2002 ZOSTER VACCINE (1 of 2) 2007 COVID-19 Vaccine (2023-2 5 season) 2024 08/29/2021, 12/13/2020, 11/15/2020 INFLUENZA VACCINE 07/13/2025 10/09/2021, , 07/19/2019 MAMMOGRAM 10/11/2026 10/11/2024, 09/13, 08/13/2022, Additional history exists Pneumococcal Vaccine 50+ Completed 08/13/2023 Procedures Procedure Name Priority Date/Time Associated Diagnosis Comments MAMMO SCREENING DIGITAL TOMOSYNTHESIS BILATERAL W CAD Routine 10/11/2024 11:16 AM EST Visit for screening mammogram from Last 3 Months or Most Recently Relevant to Health Maintenance Results * Mammo Screening Digital Tomosynthesis Bilateral With CAD (10/11/2024 11:16 AM EST) Anatomical Region Laterality Modality Breast N/A Mammography 10/12/2024 4:52 PM EST Impressions 10/12/2024 4:56 PM EST No findings suspicious for malignancy. ACR BI-RADS CATEGORY: 1, NEGATIVE RECOMMENDATION: Yearly mammogram, yearly clinical breast exam, and encourage self breast awareness. CAD was used. The standard false negative rate of mammography is between 10% and 25%. Complex patterns or increased breast density will markedly elevate the false negative rate of mammography. A letter, in lay terminology, with the results of this exam will be mailed to the patient. If there is a palpable area of concern, biopsy should be considered regardless of imaging findings. This report was finalized on 10/12/2024 4:56 PM by Ilsa Davila MD. Narrative 10/12/2024 4:56 PM EST ROUTINE DIGITAL SCREENING MAMMOGRAM WITH TOMOSYNTHESIS HISTORY: Routine screening. IMAGE COMPARISON: Extending to 2020. TECHNIQUE: Low dose full field digital breast tomosynthesis imaging was performed with 2D and 3D acquisitions consisting of bilateral CC and MLO views. FINDINGS: The breasts are heterogeneously dense. The fibroglandular pattern appears stable. There is no mass, worrisome microcalcifications, or architectural distortion to suggest development of malignancy. Randell Delgado MD IMG MAMMOGRAPHY ORDERA BLES Final Result from Last 3 Months or Most Recently Relevant to Health Maintenance Insurance [place] [id number] [facility] Medicare Advantage [employer] PPO Care Teams Screen Printing Equipment Setter Relationship Specialty Start Date End Date Randell Delgado MD [address] [place] [facility] [address] [place] [address] PCP - General 12/07/15
--- NOTE | 2025-05-12 11:15 | CA_ITS ---
APPROVED REPORT EXAM: Comprehensive 2D, Doppler, and color-flow Echocardiogram [employer] Counselor: Katherine Beaver RT(R) Ht: 5 ft 5 in Wt: 263lbs BSA: 2.22 BP: 156/74 mmHg Indications: chest pain, HFpEF, near syncope 2D Dimensions LVEF (Echols's) 73.40 % F: 54 - 74 LV Volume 69.20 mL F: 46 - 106 LV Volume Index 31.2 mL/m2 F: 29 - 61 LA Volume 23.90 mL LA Volume Index 10.77 mL/m2 (M/F) 16-34 EF AP4 71.30 % EF AP2 75.3 % EF BP 73.4 % GL Strain -19.2 % M-Mode Dimensions RVDd 2.49 cm (0.9-2.6) LA Diam 3.77 cm (1.9-4.0) LVDd 4.19 cm (3.5-5.7) LVDs 3.00 cm (3.5-5.7) IVSd 1.10 cm (0.6-1.1) PWd 1.01 cm (0.6-1.1) EF (Teich) 55.20% FS 28.40% EDV (Teich) 78.10 mL ESV (Teich) 35.00 mL LV Diastology E Decel Time 210 (160-240 msec) E/A Ratio 0.9 Mitral Valve MV E Max Valeriano. 81.0 (40-130 cm/s) MV A Velocity 89.0 (40-130 cm/s) E/A Ratio 0.91 MV PHT 62.0 ms Tricuspid Valve TR P. Velocity 247.00 cm/s Left Ventricle The left ventricle is normal size. Left ventricular systolic function is normal. The left ventricular ejection fraction is within the normal range. There is increased left ventricular wall thickness. There is normal LV segmental wall motion. The left ventricular diastolic function is indeterminate. LVEF is 55% Right Ventricle The right ventricle is normal size. The right ventricular systolic function is normal. Atria The left atrium is mildly dilated. The right atrium size is normal. There is no color Doppler evidence of interatrial shunt. Aortic Valve The aortic valve is mildly thickened. There is no hemodynamically significant aortic valvular stenosis. Trac eaortic regurgitation is present. Mitral Valve The mitral valve is normal in structure. No evidence of mitral valve stenosis. Mild mitral regurgitation is present. Tricuspid Valve The tricuspid valve leaflets are thin and pliable. Mild tricuspid regurgitation. RVSP is 20-25 mmHg. Pulmonic Valve The pulmonary valve is grossly normal in structure. Trace pulmonic valve regurgitation is present. Great Vessels The aortic root is normal in size. IVC is normal in size and collapses >50% with inspiration. Pericardium There is no pericardial effusion. Other Information Study Quality: Fair Conclusion Normal biventricular systolic function. Mild LA dilation. Mild MR, mild TR. Electronically signed by : Molly Sultana MD 05/13/2025 12:32:31
--- NOTE | 2025-05-12 12:00 | NM_ITS ---
APPROVED REPORT Exam: Nuclear Stress Test Indication: Chest pain, SOB, HTN, Family history Patient Location: Outpatient Stress Tech: Elba Wise [place] Tech:Kathia Locke, ARRT, RT (R)(N) Ht: 5 ft 5 in Wt: 268 lbs Bra Size: 40DDD HR: 62 bpm BP: 162/90 mmHg BSA: 2.24 m2 TID: 1.10 BMI: 44.5 History: Chest pain, SOB, HTN, Family history Procedure: Patient received 0.4 mg of intravenous Lexiscan, resting heart rate 62 bpm, resting blood pressure 162/90 mmHg, with Lexiscan maximum heart rate achieved was 88 bpm which is % of the maximum predicted heart rate and blood pressure was 178/94 mmHg. With Lexiscan, patient denied any complaint of chest pain. Cardiac Stress and Resting SPECT Images: Cardiac Stress and Resting SPECT images were obtained using technetium 99m Myoview 31.4 mCi stress and 9.98 mCi at rest. Resting stress imaging in supine and prone positions demonstrate a small-sized, moderate, partially reversible perfusion defect in the distal anterior and anteroapical LV monique. Gated imaging demonstrates normal global LV systolic function. LVEF is calculated at 72%. Conclusion: Small-sized, moderate, partially reversible perfusion defect in the distal anterior and anteroapical LV monique. Findings are suggestive of partial reversible ischemia. Gated imaging demonstrates normal global LV systolic function. LVEF is calculated at 72%. Electronically signed by : Molly Sultana MD 05/13/2025 13:06:52
[2025-05-12] MEDS: SODIUM CHLORIDE 0.9% 10ML SYR (RAD ONLY) 10 ML IV ×2 (13:24)
[2025-05-12] MEDS: ISOTOPE MYOVIEW (PER STUDY) 1 DOSE IV (13:25)
== END 2025-05-12 23:59 | disposition home or self-care (01) ==
LOC: RT 11:08
PROVIDERS: PCP Family Medicine; Visit Provider Nurse Practitioner
DX: I08.1 Rheumatic disorders of both mitral and tricuspid valves (principal); I11.0 Hypertensive heart disease with heart failure; I50.30 Unspecified diastolic (congestive) heart failure; R55 Syncope and collapse; R94.39 Abnormal result of other cardiovascular function study; R94.31 Abnormal electrocardiogram [ECG] [EKG]
CPT/HCPCS: 78452; 93016; 93017; 93018; 93306; A9502; J2785

== ENCOUNTER 2025-06-03 08:58 | Day surgery (SDC) | payer MEDICARE, SELFPAY ==
[2025-06-03] VITALS (11 sets, daily range): BP systolic 139–159; BP diastolic 66–81; PULSE 62–72; RESP 16–18; TEMP 36.6; O2SAT 95–99; BMI 44.9
--- NOTE | 2025-06-03 06:59 | IR_ITS ---
APPROVED REPORT Patient Location: Outpatient PROCEDURES Left heart catheterization Left ventriculogram Selective coronary angiogram INDICATION Abnormal Myoview, Angina pectoris Informed consent was obtained prior to the procedure. COMPLICATIONS NONE Estimated Blood Loss: LESS THAN 10 ML TECHNIQUE One percent lidocaine used to anesthetize the right anterior aspect of the wrist. The right radial artery was accessed via the Seldinger technique. A 6 Pashto sheath was placed in the right radial artery. 2.5 mg of Verapamil, 800 mcg of nitroglycerin, 1mg Lidocaine and 5000 U Heparin were given through the arterial sheath. The JL3 catheter was also used to perform left heart catheterization, left ventriculogram and selective coronary angiogram. At the end of the procedure the sheath was removed good hemostasis was achieved using Traclet band, patient was transferred to the postop holding area in stable condition. ANGIOGRAPHIC RESULTS The left main artery Normal The left anterior descending artery Approximately normal with a mid vessel concentric 40 to 50% smooth stenosis The circumflex artery Nondominant normal The right coronary artery Dominant normal The HAWK ventriculogram reveals Normal 65% The left ventricular end-diastolic pressure 20 mmHg IMPRESSION Moderate mid LAD disease as described above which is smooth and best managed medically at this time unless symptoms become recalcitrant Normal ejection fraction Elevated LVEDP PLAN 1. Aggressive risk factor modification 2. Maximize antianginals Electronically signed by : Tutu Chavez MD 06/03/2025 11:40:56
[2025-06-03 09:37] LABS: Hematocrit 41.3 % (37.0-47.0); Hemoglobin 13.9 g/dL (12.2-16.2); Immature Granulocytes % 0.3 %; Mean Corpuscular HGB Conc 33.7 g/dL (31.8-35.4); Mean Corpuscular Hemoglobin 31.0 pg (27.0-31.2); Mean Corpuscular Volume 92.2 fl (81-99); Nucleated Red Blood Cells % 0 %; Platelet Count 264 K/mm3 (142-424); Red Blood Count 4.48 M/mm3 (4.20-5.40); Red Cell Distribution Width-SD 44.7 fL; White Blood Count 7.8 K/mm3 (4.8-10.8)
[2025-06-03 09:40] LABS: Chloride 110 mmol/L (98-107); Potassium 4.2 mmoL/L (3.5-5.1); Sodium 141 mmol/L (136-145)
[2025-06-03 09:43] LABS: Anion Gap 11.2 mEq/L (5-15); Blood Urea Nitrogen 14 mg/dl (7-17); Calcium 8.9 mg/dl (8.4-10.2); Carbon Dioxide 24 mmol/L (22.0-30.0); Creatinine Clearance Estimated 48 mL/min (50-200); Creatinine,Serum 0.60 mg/dl (0.52-1.04); Estimated Glomerular Filt Rate 99 ml/min (>60); GFR (African American) 120 ML/MIN (>60); Glucose 143 mg/dl (74-100)
[2025-06-03] MEDS: NITROGLYCERIN 800MCG/8ML SYR (CATH LAB) 800 MCG IA (10:42)
[2025-06-03] MEDS: HEPARIN 1,000 UNITS/500ML NS (CATH LAB) 3000 UNIT IV (10:43)
[2025-06-03] MEDS: 0.9 % SODIUM CHLORIDE 500 ML 25 ML IV (10:43)
[2025-06-03] MEDS: HEPARIN 1,000 UNITS/ML 10ML VIAL (CATH LAB) 5000 UNIT IV (10:43)
[2025-06-03] MEDS: VERAPAMIL 2.5MG/ML 2ML VIAL 2.5 MG IV (10:43)
[2025-06-03] MEDS: LIDOCAINE 1% 10ML MDV 10 ML IJ (10:43)
[2025-06-03] MEDS: FENTANYL 100MCG/2ML VIAL 50 MCG IV (10:54)
[2025-06-03] MEDS: MIDAZOLAM HCL 1MG/ML 5ML VIAL 1 MG IV (10:54)
[2025-06-03] MEDS: IOPAMIDOL-370 (76%);100ML BOTTLE 50 ML IV (12:10)
== END 2025-06-03 13:13 | disposition home or self-care (01) ==
LOC: CATHLAB 08:59
PROVIDERS: PCP Family Medicine; Visit Provider Internal Medicine
PROC: 4A023N7 Measurement of Cardiac Sampling and Pressure, Left Heart, Percutaneous Approach (ICD-10-PCS; CPT 93452; principal; 2025-06-03 10:00)
DX: I25.118 Atherosclerotic heart disease of native coronary artery with other forms of angina pectoris (principal); R93.1 Abnormal findings on diagnostic imaging of heart and coronary circulation; R06.02 Shortness of breath; I11.0 Hypertensive heart disease with heart failure; I50.30 Unspecified diastolic (congestive) heart failure; G47.33 Obstructive sleep apnea (adult) (pediatric); Z86.73 Personal history of transient ischemic attack (TIA), and cerebral infarction without residual deficits; Z79.890 Hormone replacement therapy; Z79.899 Other long term (current) drug therapy; Z88.1 Allergy status to other antibiotic agents; Z88.2 Allergy status to sulfonamides; Z88.8 Allergy status to other drugs, medicaments and biological substances; Z82.49 Family history of ischemic heart disease and other diseases of the circulatory system
CPT/HCPCS: 80048; 85025; 93458; 99152; C1725; C1769; J1200; J1644; J3010; J7040; Q9967

== ENCOUNTER 2025-07-05 08:29 | Outpatient (CLI) | payer MEDICARE, OTHER, SELFPAY ==
--- OUTSIDE RECORDS SUMMARY | 2025-01-04 05:00 | XMS_ITS ---
Author Organization [facility] Address [address] [facility] [address] [place] [id number] Care Team Providers Care Blindstitch Lapel Padder Name Role Phone Phuong Delgado Primary Care Provider Allergies Allergen (clinical drug ingredient) Drug/Non Drug Allergy documented on EMR Reaction Allergy Type Onset Date Status CEDAX (uncoded) Unknown Allergy Acti ve amoxicillin Amoxicillin Unknown Drug Allergy Act michelle clarithromycin Clarithromycin Unknown Drug Allergy Active atorvastatin Lipitor Unknown Drug Allergy Acti ve lisinopril Lisinopril rash Drug Allergy Activ e nitrofurantoin, macrocrystals / nitrofurantoin, monohydrate Macrobid Unknown Drug Allergy Active Maxzide Unknown Drug Allergy Active Oxytetracycline HCl anaphylaxis Drug Allergy Active nabumetone Relafen DS Unknown Drug Allergy Activ e azithromycin Zithromax Unknown Drug Allergy Acti ve rofecoxib Rofecoxib Unknown Drug Allergy Active Substance with sulfonamide structure and antibacterial mechanism of action (substance) Sulfa Antibiotics Unknown Drug Allergy Active REASON FOR VISIT discuss labs/meds and Annual Wellness Visit, due for diabetic eye exam Medications Medication SIG (Take, Route, Frequency, Duration) Notes Start Date End Date Status Compression Stockings - as directed 07/08/2024 Active Diflucan 150 MG 1 tablet Orally once 11/29/2024 Active Jardiance 10 MG 1 tablet Orally Once a day 05/27/2023 Active Torsemide 10 MG 1 tablet Orally Once a day Active Levothyroxine Sodium 75 mcg TAKE ONE TAB LET BY MOUTH EVERY DAY; Duration: 30 Active Fish Oil 500 MG 2 cap(s) orally 2 ti mes a day Active Dicyclomine HCl 10 MG 1 cap(s) orally ACHS 022 Active Flovent HFA 44 MCG/ACT INHALE 1 PUFF BY MOUTH TWICE DAILY NEEDED FOR SHORTNESS OF BREATH OR wheezing; Duration: 6 Active Vitamin B Complex - 1 tab(s) orally once a day; Duration: 30 day(s) Active Propranolol HCl 20 MG orally 1/2 Qam, 1 Qhs Active Albuterol Sulfate HFA 108 (90 Base) MCG/ACT 2 puff(s) inhaled qid and q2h prn 05/21/2022 Active Vitamin D3 25 MCG (1000 UT) 1 cap(s) ora lly once a day; Duration: 30 day(s) 01/30/2016 Active Emgality 120 MG/ML as directed Subcutaneous Active PriLOSEC OTC 20 MG 2 tab(s) orally once a day Active Multivitamin - 1 tab(s) orally once a day; Duration: 30 day(s) Active traMADol HCl 25 MG as directed Orally Active Spironolactone 50 MG 1 tablet Orally Onc e a day Active Entresto 49-51 MG 1 tablet Orally Twic e a day Active Immunizations Vaccine Route Administration Date Status Comme nts PNEUMOVAX 23 VACCINE IM Intramuscular 01/04/2025 Administe red Problems Problem Type SNOMED Code ICD Code Onset Dates Problem Status W/U Status Risk Notes Problem Body mass index 40+ - morbidly obese ([id number]) BMI 40.0-44.9, adult (Z68.41) Active confirmed Vital Signs Blood pressure systolic 130 mm Hg 01/05/20 25 Blood pressure diastolic 70 mm Hg 025 Heart Rate 68 /min 01/04/2025 Height 66 in 01/04/2025 Weight 249.2 lbs 01/04/2025 BMI 40.22 kg/m2 01/04/2025 Encounters Encounter Location Date Provider Diagnosis [facility] [address] [facility] [address] [place], [place] [address]ana, [place] [phone] 01/04/2025 Phuong Delgado Adult general medica l examination Z00.00 ; Chronic heart failure with preserved ejection fraction (HFpEF) I50.32 ; Essential hypertension I10 ; Acquired hypothyroidism E03.9 ; Type 2 diabetes mellitus E11.9 ; Lymphedema I89.0 ; Vitamin D deficiency E55.9 ; Knee joint replacement by other means Z96.659 and BMI 40.0-44.9, adult Z68.41 Assessments Encounter Date Diagnosis (ICD Code) Assessment Notes Treatment Notes Treatment Clinical Notes Section Notes 01/04/2025 Adult general medical examination (ICD-10 - Z00.00) Patient instructed to return to office Annually for Annual Wellness Visits to include annual screenings of Pain assessment, Functional Ability assessment, Cognitive Ability assessment, Fall Risk assessment, Depression screening and Bladder control screening. 01/04/2025 Chronic heart failure with preserved ejection fraction (HFpEF) (ICD-10 - I50.32) 01/04/2025 Essential hypertension (ICD-10 - I10) 01/04/2025 Acquired hypothyroidism (ICD-10 - E03.9) 01/04/2025 Type 2 diabetes mellitus (ICD-10 - E11.9) 01/04/2025 Lymphedema (ICD-10 - I89.0) 01/04/2025 Vitamin D deficiency (ICD-10 - E55.9) 01/04/2025 Knee joint replacement by other means (ICD-10 - Z96.659) 01/04/2025 BMI 40.0-44.9, adult (ICD-10 - Z68.41) Plan Of Treatment Treatment Notes Assessment Notes Adult general medical examination Patien t instructed to return to office Annually for Annual Wellness Visits to include annual screenings of Pain assessment, Functional Ability assessment, Cognitive Ability assessment, Fall Risk assessment, Depression screening and Bladder control screening. Next Appt Details Follow Up: 6 Months, Reason: Progress Notes * YESSICA NOELB: (70 yo F)Acc No.[id number]:01/04/2025 Annual Wellness Visit Patient: DARIN PABLO Account Number:[id number] Provider: Phuong Delgado M.D. :1955 A ge:69 Y S ex:Female Date:01/04/2025 Address:[facility] [address], [facility], [id number] Subjective: * Chief Complaints: * 1 . discuss labs/meds and Annual Wellness Visit. 2. Due for diabetic eye exam. * HPI: H PI: Patient is here today for P atient is here today to discuss labs and medications, and for a Medicare Annual Wellness Visit. See 12/31/[address] [facility] and ordered by Plant Engineering Manager. . * ROS: O PTHALMOLOGY: Negative for d enies vision issues. * Medical History: H ypercholestrolemia, Migraine Headache, FH of heart disease, Squamous cell carcinoma skin, diverticulosis by CT 03/29/2011, Light Stroke- 08/31/2019, Irregular Heart Beat , CHF - HFpEF, Type 2 DM. * Surgical History: H ysterectomy , arthroscopic knee surgery , cholecystectomy , skin cancer removal, legs bilaterally , right hip replacement Dr Dago Vargas 09/14/2014, Total Right Knee Replacement 06/2024. * Hospitalization/Major Diagno stic Procedure: C hest Pain- [facility] 06/09/2012, Kidney Stone- [facility] ER 09/2012, [facility]- [facility] 08/24/2018, TIA- [facility] 09/03/2019, TIA- 09/03/2019. * Family History: F ather: . M other: alive, [place]. Lung cancer. 1 son(s) , 1 daughter(s) . . * Social History: C URRENT TOBACCO USE S moking Status: Patient does NOT smoke. C affeine: yes, frequency: diet sodas. Exercise: no. Home smoke detector use: yes. Marital Status: . Occupation: retired from the [employer]. Past smoking status: no. Alcohol: No. * Medications: T aking Spironolactone 50 MG Tablet 1 tablet Orally Once a day , Taking Entresto 49-51 MG Tablet 1 tablet Orally Twice a day , Taking traMADol HCl 25 MG Tablet as directed Orally , Taking Emgality 120 MG/ML Solution Auto-injector as directed Subcutaneous , Taking Albuterol Sulfate HFA 108 (90 Base) MCG/ACT Aerosol Solution 2 puff(s) inhaled qid and q2h prn , Taking Vitamin D3 25 MCG (1000 UT) Capsule 1 cap(s) orally once a day , Taking PriLOSEC OTC 20 MG Tablet Delayed Release 2 tab(s) orally once a day , Taking Multivitamin - Tablet 1 tab(s) orally once a day , Taking Fish Oil 500 MG Capsule 2 cap(s) orally 2 times a day , Taking Vitamin B Complex - Tablet 1 tab(s) orally once a day , Taking Propranolol HCl 20 MG Tablet orally 1/2 Qam, 1 Qhs , Taking Dicyclomine HCl 10 MG Capsule 1 cap(s) orally ACHS , Taking Flovent HFA 44 MCG/ACT Aerosol INHALE 1 PUFF BY MOUTH TWICE DAILY NEEDED FOR SHORTNESS OF BREATH OR wheezing , Taking Jardiance 10 MG Tablet 1 tablet Orally Once a day , Taking Torsemide 10 MG Tablet 1 tablet Orally Once a day , Taking Compression Stockings - as directed , Taking Diflucan 150 MG Tablet 1 tablet Orally once , Taking Levothyroxine Sodium 75 mcg Tablet TAKE ONE TABLET BY MOUTH EVERY DAY , Medication List reviewed and reconciled with the patient * Allergies: R elafen DS, Sulfa Antibiotics, Clarithromycin, Zithromax, Rofecoxib, Macrobid, Oxytetracycline HCl: anaphylaxis, CEDAX, Lisinopril: rash, Lipitor, Maxzide, Amoxicillin. Objective: * Vitals: W t: 249.2, Temp: 97.7, BP: 130/70, HR: 68, Nurse: carlton, Ht: 66, BMI:40.22. * Physical Examination: G ENERAL: Pain Assessment: P ain level: 2, on a scale of 0-10 (with 10 being extreme pain). F unctional Status Assessment: P atient response to question of how often physical health interferes with daily activities: . Occasionally Able to perform ADLs-including meal preparation, grocery shopping, housework, laundry, taking medications or handling finances. Cognitive Status: alert and oriented. Ambulation Status: Fully ambulatory . F all Risk Assessment: I ndependant in ambulation, adequate lighting in home. Patient has NOT fallen or had trouble walking within the past 12 months. D epression Screening: D janaies depressed mood or anxiety. Describes emotional health as: calm. B ladder Control Screening: s brittani vizcaino. L ABS: See labs r carlota with patient, A1c at goal at 6.2%. Assessment: * Assessment: 1. A dult general medical examination - Z00.00 (Primary) 2 . C hronic heart failure with preserved ejection fraction (HFpEF) - I50.32 3 . E ssential hypertension - I10 4 . A cquired hypothyroidism - E03.9 5 . T ype 2 diabetes mellitus - E11.9 6 . L ymphedema - I89.0 7 . V itamin D deficiency - E55.9 8 . K nee joint replacement by other means - Z96.659? 9. B [place] 40.0-44.9, adult - Z68.41 Plan: * Treatment: * Immunizations: PNEUMOVAX 23 VACCINE (Route: Intramuscular) given by CARLTON Luu on Left Deltoid (Adult general medical examination) * Procedure Codes: G 0439 ANNUAL WELLNESS VST; PPS SUBSQT VST, G2211 Complex e/m visit add on, G0444 ANNUAL DEPRESSION SCREENING 15 MIN, 1090F PRES/ABSN URINE INCON ASSESS, 3288F FALL RISK ASSESSMENT DOCD, 1170F FXNL STATUS ASSESSED, 1159F MED LIST DOCD IN RCRD, 1003F LEVEL OF ACTIVITY ASSESS, 3017F COLORECTAL CA SCREEN DOC REV, 1036F TOBACCO NON- USER, 3044F HG A1C LEVEL LT 7.0%, 4040F PNEUMOC IMM ORDER/ADMIN, G8510 NEG SCR Depression PT NOT ELIG F/U/PLN DOC, G8752 MOST RECENT SYSTOLIC BP < 140MM HG, G8754 MOST RECENT DIASTOLIC BP < 90MM HG * Preventive Medicine: Counseling: E motional health: P atient encouraged to try connecting with family or friends to boost mood. B ladder control: M ethods of controlling or managing leakage of urine discussed. E xercise: P atient advised to start, increase or maintain level of exercise/physical activity. I njury prevention: F all prevention discussed. Discussed need for cane/walker. Potential trip hazards discussed. Immunizations: P neumococcal r ecommended. I nfluenza u p to date. Screening / Special Tests: M ammogram R ecent history: 10/11/2024, negative.?Colonoscopy R ecent history: 01/03/2025, polyps, diverticulosis, hemorrhoids, repeat 5 years. Bone mineral Density R ecent history: 07/16/2024, normal. D iabetic Retinal Eye Exam?Recent history:, recommended today. N ephrology History R ecent history: GFR 12/31/2024, urine m/a ordered today. * Follow Up: 6 Months * Images: Billing Information: * Visit Code: 52813 Office Visit, Est Pt., Level 3. Modifiers: 25 * Procedure Codes: G0439 ANNUAL WELLNESS VST; PPS SUBSQT VST. G2211 Complex e/m visit add on. G0444 ANNUAL DEPRESSION SCREENING 15 MIN. 1090F PRES/ABSN URINE INCON ASSESS. 3288F FALL RISK ASSESSMENT DOCD. 1170F FXNL STATUS ASSESSED. 1159F MED LIST DOCD IN RCRD. 1003F LEVEL OF ACTIVITY ASSESS. 3017F COLORECTAL CA SCREEN DOC REV. 1036F TOBACCO NON-USER. 3044F HG A1C LEVEL LT 7.0%. 4040F PNEUMOC IMM ORDER/ADMIN. G8510 NEG SCR Depression PT NOT ELIG F/U/PLN DOC. G8752 MOST RECENT SYSTOLIC BP < 140MM HG. G8754 MOST RECENT DIASTOLIC BP < 90MM HG. * Electronic signature of Phuong Delgado MD on 07/05/2025 at 08:48 AM EDT Sign off status: Pending * Provider: Phuong Delgado M.D. Date: 0 01/04/2025 Generated for Ish salazar/Andry/Rosemaryitting on: 0 07/05/2025 08:48 AM EDT History and Physical Notes * HPI (History of Present Illness) Category Sub-Category Detail Notes Category Not es HPI Patient is here today for Patien t is here today to discuss labs and medications, and for a Medicare Annual Wellness Visit. See 12/31/[address] [facility] and ordered by Plant Engineering Manager. Physical Examination Category Sub-Category Detail Notes Section Note s GENERAL Pain Assessment: Pain level: 2, on a scale of 0-10 (with 10 being extreme pain) Functional Status Assessment: Patient response to question of how often physical health interferes with daily activities: . Occasionally Able to perform ADLs-including meal preparation, grocery shopping, housework, laundry, taking medications or handling finances. Cognitive Status: alert and oriented. Ambulation Status: Fully ambulatory Fall Risk Assessment: Independant in amb ulation, adequate lighting in home. Patient has NOT fallen or had trouble walking within the past 12 months Depression Screening: Denies depressed m ood or anxiety. Describes emotional health as: calm Bladder Control Screening: small problem s LABS See labs reviewed with patient, A1c a t goal at 6.2%
--- OUTSIDE RECORDS SUMMARY | 2025-02-28 05:30 | XMS_ITS ---
Author Organization [facility] Address [address] [place] [id number] Care Team Providers Care Mill House Supervisor Name Role Phone Phuong Delgado Primary Care Provider [phone] Obdulia Sutton Unavailable [phone] Allergies Allergen (clinical drug ingredient) Drug/Non Drug [...] (substance) Sulfa Antibiotics Unknown Drug Allergy Active Results Component Value Reference Range Notes Urinalysis - Inhouse Reviewed date:02/28/2025 03:03:49 PM Interpretation: Performing Lab: Notes/Report: Color/Clarity yellow/cloudy Leuk 1+ Nitrite Neg Urobili 3.2 Protein Neg pH 5.5 Blood Trace-intact Sp. Gr. 1.020 Ketone Trace Bili Neg Gluc Neg P-Culture, Urine Reviewed date:03/09/2025 04:23:27 PM Interpretation: Performing Lab: Notes/Report: Test performed by [facility], [employer] [address] [place] [address] , [address], [place] [address] Dave Topete MD, [place] JACE: [id number] Specimen Source Urine - Void Culture, Urine See Below See Microbiol ogy Report Streptococcus agalactiae (Strep. group B) 15,000-25,000 CFU/ml Streptococcus agalactiae (Strep. group B) Susceptibility testing is not routinely performed for Beta-hemolytic streptococci as they are considered universally susceptible to penicillin and other ?-lactam antibiotics. Susceptibility testing may be indicated in the cases of known severe allergy to ?-lactam antibiotics or treatment failure and can be performed upon request. Escherichia coli 25,000-50,000 CFU/ml Escherichia coli Sensitivity Panel See Below ____ Organism E. coli Antibiotic INTERP ____ Amikacin S Ampicillin S Aztreonam S Cefepime S Cefoxitin S Ceftazidime S Ceftriaxone S Cefuroxime S Ciprofloxacin I Ertapenem S Gentamicin S Imipenem S Levofloxacin S Meropenem S Nitrofurantoin S Piperacillin/Tazo S Tetracycline S Tobramycin S Trimeth/Sulfa S ___ S=SUSCEPTIBLE I=INTERMEDIATE R=RESISTANT REASON FOR VISIT Stomach Issues Medications Medication SIG (Take, Route, Frequency, Duration) Notes Start Date End Date Status Dicyclomine HCl 10 MG 1 cap(s) orally ACHS 022 Not-Taking Jardiance 10 MG 1 tablet Orally Once a day 05/27/2023 Not-Taking Torsemide 10 MG 1 tablet Orally Once a day Active Vitamin B Complex - 1 tab(s) orally once a day; Duration: 30 day(s) Active Vitamin D3 25 MCG (1000 UT) 1 cap(s) orally once a day; Duration: 30 day(s) 01/30/2016 Active PriLOSEC OTC 20 MG 2 tab(s) orally once a day Active Multivitamin - 1 tab(s) orally once a day; Duration: 30 day(s) Active Fish Oil 500 MG 2 cap(s) orally 2 ti mes a day Active Spironolactone 50 MG 1 tablet Orally Onc e a day Active Entresto 49-51 MG 1 tablet Orally Twic e a day Active Emgality 120 MG/ML as directed Subcutaneous Active Albuterol Sulfate HFA 108 (90 Base) MCG/ACT 2 puff(s) inhaled qid and q2h prn 05/21/2022 Not-Taking Compression Stockings - as directed 07/08/2024 Active Levothyroxine Sodium 75 mcg TAKE ONE TABLET BY MOUTH EVERY DAY; Duration: 30 Active Cipro 500 MG 1 tablet Orally ever y 12 hrs; Duration: 3 days Active Voquezna 10 MG 1 tablet Orally Once a day; Duration: 30 day(s) 02/28/2025 Active Problems Problem Type SNOMED Code ICD Code Onset Dates Problem Status W/U Status Risk Notes Problem Type 2 diabetes mellitus with other specified complication, unspecified whether nursing home insulin use (E11.69) Active confirmed Problem Morbid obesity (031204177) Morbid obesity (E66.01) Active confirmed Vital Signs Blood pressure systolic 130 mm Hg 02/29/20 25 Blood pressure diastolic 80 mm Hg 025 Heart Rate 81 /min 02/28/2025 Height 66 in 02/28/2025 Weight 261.0 lbs 02/28/2025 BMI 42.12 kg/m2 02/28/2025 Encounters Encounter Location Date Provider Diagnosis [facility] [address] [facility] [address] [place] [id number] 02/28/2025 Obdulia Sutton Acute lower urinary tract infection N39.0 ; Abdominal discomfort, epigastric R10.13 ; Hyperlipidemia, unspecified hyperlipidemia type E78.5 ; Type 2 diabetes mellitus with other specified complication, unspecified whether groover operator insulin use E11.69 ; BMI 40.0-44.9, adult Z68.41 and Morbid obesity E66.01 Assessments Encounter Date Diagnosis (ICD Code) Assessment Notes Treatment Notes Treatment Clinical Notes Section Notes 02/28/2025 Acute lower urinary tract infection (ICD-10 - N39.0) good water intake 02/28/2025 Abdominal discomfort, epigastric (ICD-10 - R10.13) [place] diet without spicy, salty,acidic, greasy,carbon ated drinks, or caffeine; discussed diet at length 02/28/2025 Hyperlipidemia, unspecified hyperlipidemia type (ICD-10 - E78.5) 02/28/2025 Type 2 diabetes mellitus with other specified complication, unspecified whether groover operator insulin use (ICD-10 - E11.69) 02/28/2025 BMI 40.0-44.9, adult (ICD-10 - Z68.41) 02/28/2025 Morbid obesity (ICD-10 - E66.01) Plan Of Treatment Medication Medication Name Sig Start Date Stop Date Notes Cipro 500 MG 1 tablet Orally ever y 12 hrs; Duration: 3 days Voquezna 10 MG 1 tablet Orally Once a day; Duration: 30 day(s) 02/28/2025 Treatment Notes Assessment Notes Acute lower urinary tract infection good water intake Abdominal discomfort, epigastric [place] d iet without spicy, salty,acidic, greasy,carbonated drinks, or caffeine; discussed diet at length Next Appt Details Follow Up: 1 Week, Reason: Progress Notes * MELI NOELDIAB: 7 (70 yo F)Acc No.zz [id number]:02/28/2025 Progress Notes Patient: DARIN PABLO Account Number:[id number] Provider: QUINTIN Garza :1955 A ge:69 Y S ex:Female Date:02/28/2025 Address:[facility] [address], [facility], [id number] Pcp:Phuong Delgado Subjective: * Chief Complaints: * 1 . Stomach Issues. * HPI: G astroenterology: 69 year old female presents with c/o Abdominal Pain e pigastric. Pt states she is having pain in her upper abdomen for about a month with nausea. Pt states it is worse with eating . c/o Acid Reflux. c/o Heartburn. c/o Nausea. c/o Abdominal Distension. c/o Belching. Denies : Vomiting. D enies : Diarrhea. D enies : Fever.?Denies : Blood in Stool. D enies : Constipation. U rology: c/o frequent urination T he pt states she is having pain with urination and bladder spasms. c/o suprapubic pain. c/o hematuria. c/o nighttime voiding: a t least once. Denies : fever. C onstitutional: c/o Weight gain P t states she would like to discuss weight management. Pt states Dr Dumont recommended she discuss some type of weight loss medication. * ROS: C ARDIOLOGY: no C hest pain. n o S hortness of breath. ? D ERMATOLOGY: no R bebeto. n o H tushar. O PTHALMOLOGY: Negative for d enies vision issues. U ROLOGY: no D ifficulty urinating. n o B lood in urine. * Medical History: H ypercholestrolemia, Migraine Headache, FH of heart disease, Squamous cell carcinoma skin, diverticulosis by CT 03/29/2011, Light Stroke- 08/31/2019, Irregular Heart Beat , CHF - HFpEF, Type 2 DM. * Surgical History: H ysterectomy , arthroscopic knee surgery , cholecystectomy , skin cancer removal, legs bilaterally , right hip replacement Dr Loza Sam 09/14/2014, Total Right Knee Replacement 06/2024. * Hospitalization/Major Diagno stic Procedure: C hest Pain- [facility] 06/09/2012, Kidney Stone- [facility] ER 09/2012, Viral URI- [facility] 08/24/2018, TIA- [facility] 09/03/2019, TIA- 09/03/2019. * Family History: F [...] tablet Orally Twice a day , Taking Emgality 120 MG/ML Solution Auto-injector as directed Subcutaneous , Taking Vitamin D3 25 MCG (1000 [...] tab(s) orally once a day , Taking Torsemide 10 MG Tablet 1 tablet Orally Once a day , Taking Compression Stockings - as directed , Taking Levothyroxine Sodium 75 mcg Tablet TAKE ONE TABLET BY MOUTH EVERY DAY , Not-Taking Albuterol Sulfate HFA 108 (90 Base) MCG/ACT Aerosol Solution 2 puff(s) inhaled qid and q2h prn , Not- Taking Dicyclomine HCl 10 MG Capsule 1 cap(s) orally ACHS , Not-Taking Jardiance 10 MG Tablet 1 tablet Orally Once a day , Discontinued traMADol HCl 25 MG Tablet as directed Orally , Discontinued Propranolol HCl 20 MG Tablet orally 1/2 Qam, 1 Qhs , Discontinued Flovent HFA 44 MCG/ACT Aerosol INHALE 1 PUFF BY MOUTH TWICE DAILY NEEDED FOR SHORTNESS OF BREATH OR wheezing , Discontinued Diflucan 150 MG Tablet 1 tablet Orally once , Medication List reviewed and reconciled with the patient * Allergies: R elafen DS, Sulfa Antibiotics, Clarithromycin, Zithromax, Rofecoxib, Macrobid, Oxytetracycline HCl: anaphylaxis, CEDAX, Lisinopril: rash, Lipitor, Maxzide, Amoxicillin. Objective: * Vitals: W t: 261.0, Temp: 97.8, BP: 130/80, HR: 81, Nurse: CONSUELO, Ht: 66, BMI:42.12. * Examination: G eneral Examination: General Appearance: N AD , appears healthy , alert , pleasant , , well nourished and hydrated. H EENT: s clera and conjunctiva clear, PERRLA, TM's normal, translucent. O ral cavity: m ucosa moist and WNL , no erythema. H eart: R RR. Lungs: C TAB A&P. A bdomen: b owel sounds present , obese , soft; tender epigastrium , no organomegaly or masses. N eurologic Exam: a lert and oriented. ? Assessment: * Assessment: 1. A cute lower urinary tract infection - N39.0 (Primary) 2 . A bdominal discomfort, epigastric - R10.13 3 . H yperlipidemia, unspecified hyperlipidemia type - E78.5 4 . T ype 2 diabetes mellitus with other specified complication, unspecified whether groover operator insulin use - E11.69 5 . B [place] 40.0-44.9, adult - Z68.41 6 . M orbid obesity - E66.01 Plan: * Treatment: Value Reference Range C ulture, Urine See Below - * S pecimen Source Urine - Void - * S ensitivity Panel See Below - * E scherichia coli 25,000-50,000 CFU/ml Escherichia coli - * S treptococcus agalactiae (Strep. group B) 15,000-25,000 CFU/ml Streptococcus agalactiae (Strep. group B) - * Obdulia Sutton 03/09/2025 04:22:57 PM >I to C[facility]; has FU appt 03/14/2025 Notes: good water intake??2.?Abdominal discomfort, epigastric? Start Voquezna Tablet, 10 MG, 1 tablet, Orally, Once a day, 30 day(s), 30.?? Notes: [place] diet without spicy, salty,acidic, greasy,carbonated drinks, or caffeine; discussed diet at length?? * Labs: * L ab: Urinalysis - Inhouse (Collection Date & Time - 02/28/2025) Value Reference Range C olor/Clarity yellow/cloudy * L euk 1+ * N itrite Neg * U robili 3.2 * P rotein Neg * p H 5.5 * B lood Trace-intact * S p. Gr. 1.020 * K etone Trace * B kenneth Neg * G grtea Neg * Damaris Obando 02/28/2025 09 :55:09 AM > Provider reviewed results while patient in office.Obdulia Sutton 02/28/2025 03:03:48 PM > * Procedure Codes: G 2211 Complex e/m visit add on, G8752 MOST RECENT SYSTOLIC BP < 140MM HG, G8754 MOST RECENT DIASTOLIC BP < 90MM HG, [address] Urinalysis, no micro * Follow Up: 1 Week * Images: Billing Information: * Visit Code: 70865 Office Visit, Est Pt., Level 4. * Procedure Codes: G2211 Complex e/m visit add on. G8752 MOST RECENT SYSTOLIC BP < 140MM HG. G8754 MOST RECENT DIASTOLIC BP < 90MM HG. [address] Urinalysis, no micro. * Electronic signature of Ny greenwood Herman , CLOUD SUBJECT MATTER EXPERT on 07/05/2025 at 08:49 AM EDT Sign off status: Pending * Provider: QUINTIN Garza Date: 0 02/28/2025 Generated for Ish salazar/Andry/Ana Paulasmitting on: 0 07/05/2025 08:49 AM EDT History and Physical Notes * HPI (History of Present Illness) Category Sub-Category Detail Notes Category Not es Gastroenterology Fever Vomiting Abdominal Pain epigastric. Pt state s she is having pain in her upper abdomen for about a month with nausea. Pt states it is worse with eating Diarrhea Blood in Stool Nausea Abdominal Distension Heartburn Acid Reflux Constipation Belching Constitutional Weight gain Pt states she wo uld like to discuss weight management. Pt states Dr Dumont recommended she discuss some type of weight loss medication Urology frequent urination The pt states she is having pain with urination and bladder spasms suprapubic pain hematuria fever nighttime voiding: at least once Examination Category Sub-Category Detail Notes Category Not es General Examination HEENT: sclera and c onjunctiva clear, PERRLA, TM's normal, translucent Heart: RRR Lungs: CTAB A&P Abdomen: bowel sounds present , obese , soft; tender epigastrium , no organomegaly or masses General Appearance: NAD , appears health y , alert , pleasant , , well nourished and hydrated Neurologic Exam: alert and oriented Oral cavity: mucosa moist and WNL , no erythema
--- OUTSIDE RECORDS SUMMARY | 2025-03-14 06:00 | XMS_ITS ---
Author Organization [facility] Address [address] [place] [id number] Care Team Providers Care Thread Singer Name Role Phone Phuong Delgado Primary Care Provider Obdulia Sutton Unavailable [phone] Allergies Allergen (clinical drug ingredient) Drug/Non Drug [...] Active Results Component Value Reference Range Notes CT Scan : Abd & Pelvis with and without IV contrast only Reviewed date:03/30/2025 10:28:36 AM Interpretation:Umbilical Hernia Performing Lab: Notes/Report: Umbilical Hernia Reason For Referral Reason on going stomach bashir n with nausea Diagnosis 1 Stomach pain (R10.9) Referral Organization [facility] Referring Provider First Name Obdulia Referring Provider Last Name Herman Referring Provider Speciality Family Pra ctice Referred Provider Gastroenterology, . Referred Provider Specialty Gastroentero logy General Notes Natalie Anand 2024 12:07:51 PM > faxed referral paperwork to Dr. Escalante office Referral Priority Routine REASON FOR VISIT follow up Medications Medication SIG (Take, Route, Frequency, Duration) Notes Start Date End Date Status Emgality 120 MG/ML as directed Subcutaneous Active Entresto 49-51 MG 1 tablet Orally Twic e a day Active Jardiance 10 MG 1 tablet Orally Once a day 05/27/2023 Not-Taking Vitamin D3 25 MCG (1000 UT) 1 cap(s) orally once a day; Duration: 30 day(s) 01/30/2016 Active Spironolactone 50 MG 1 tablet Orally Onc e a day Active Albuterol Sulfate HFA 108 (90 Base) MCG/ACT 2 puff(s) inhaled qid and q2h prn 05/21/2022 Not-Taking Dicyclomine HCl 10 MG 1 cap(s) orally ACHS 022 Not-Taking Compression Stockings - as directed 07/08/2024 Active Cipro 500 MG 1 tablet Orally ever y 12 hrs; Duration: 3 days Not-Taking Levothyroxine Sodium 75 mcg TAKE ONE TABLET BY MOUTH EVERY DAY; Duration: 30 Active Fish Oil 500 MG 2 cap(s) orally 2 ti mes a day Active Torsemide 10 MG 1 tablet Orally Once a day Active Vitamin B Complex - 1 tab(s) orally once a day; Duration: 30 day(s) Active PriLOSEC OTC 20 MG 2 tab(s) orally once a day Active Multivitamin - 1 tab(s) orally once a day; Duration: 30 day(s) Active Problems Problem Type SNOMED Code ICD Code Onset Dates Problem Status W/U Status Risk Notes Problem Polyarthritis (647988853) Polyarthritis (M13.0) Active confirmed Problem Hyperlipidaemia (12334506) HLD (hyperlipidemia) (E78.5) Active confirmed Vital Signs Blood pressure systolic 126 mm Hg 03/14/20 25 Blood pressure diastolic 80 mm Hg 025 Heart Rate 81 /min 03/14/2025 Height 66 in 03/14/2025 Weight 256.0 lbs 03/14/2025 BMI 41.31 kg/m2 03/14/2025 Encounters Encounter Location Date Provider Diagnosis [facility] [address] [place] [phone] 03/14/2025 Obdulia Sutton Polyarthritis M13.0 ; Stomach pain R10.9 ; HLD (hyperlipidemia) E78.5 ; Lymphedema I89.0 ; Acquired hypothyroidism E03.9 and Vitamin D deficiency E55.9 Assessments Encounter Date Diagnosis (ICD Code) Assessment Notes Treatment Notes Treatment Clinical Notes Section Notes 03/14/2025 Polyarthritis (ICD-10 - M13.0) 03/14/2025 Stomach pain (ICD-10 - R10.9) Will go ahead and order CT scan and send in referral to gastro, watch the foods she eats; bland diet 03/14/2025 HLD (hyperlipidemia) (ICD-10 - E78.5) 03/14/2025 Lymphedema (ICD-10 - I89.0) continue with support hose 03/14/2025 Acquired hypothyroidism (ICD-10 - E03.9) 03/14/2025 Vitamin D deficiency (ICD-10 - E55.9) 03/14/2025 Other to return to office for labs as listed Plan Of Treatment Medication Medication Name Sig Start Date Stop Date Notes Voquezna 10 MG 1 tablet Orally Once a day 02/28/2025 PriLOSEC OTC 20 MG 2 tab(s) orally once a day Treatment Notes Assessment Notes Stomach pain Will go ahead and or kim CT scan and send in referral to gastro, watch the foods she eats; bland diet Lymphedema continue with suppor t hose Other to return to office for labs as listed Pending Test Test Name Order Date CBC Venipuncture (in house) 03/14/2025 P-Comprehensive Metabolic Panel (CMP) P-Arthritis Panel, [facility] 03/14/2025 P-Lipase 03/14/2025 P-Lipid Panel 03/14/2025 P-TSH 03/14/2025 P-Vitamin D, 1, 25 Dihydroxy 03/14/2025 Referrals Referral Date Details 03/14/2025 03/14/2025, on going stomach pain with nausea, . Gastroenterology Next Appt Details Follow Up: after CT prn, [place] son: Progress Notes * SERGIO NOEL: 7 (70 yo F)Acc No.zz [id number]:03/14/2025 Progress Notes Patient: DARIN PABLO Account Number:[id number] Provider: QUINTIN Garza :1955 A ge:69 Y S ex:Female Date:03/14/2025 Address:[address] [place] [address] , [place], [id number] Pcp:Phuong Delgado Subjective: * Chief Complaints: * 1 . Follow up. * HPI: H PI: 69 year old female presents with c/o Patient is here today for?Pt is here today for a f/u. Pt sts she is still having all of the symptoms as before. Pt did finish the antibiotics. G astroenterology: bowels with constipation followed by loose stool. c/o Abdominal Pain. c/o Acid Reflux. c/o Heartburn.? c/o Nausea. c/o Belching. Denies : Vomiting. * ROS: D ERMATOLOGY: no R bebeto. n o H tushar. U ROLOGY: no D ifficulty urinating. n [...] Hospitalization/Major Diagno stic Procedure: C hest Pain- [facility] 06/09/2012, Kidney Stone- [facility] ER 09/2012, Viral URI- [facility] 08/24/2018, TIA- [facility] 09/03/2019, TIA- 09/03/2019. * Family History: [...] ONE TABLET BY MOUTH EVERY DAY , Taking Voquezna 10 MG Tablet 1 tablet Orally Once a day , Not-Taking Cipro 500 MG Tablet 1 tablet Orally every 12 hrs , Not-Taking Albuterol Sulfate HFA 108 (90 Base) MCG/ACT Aerosol Solution 2 puff(s) inhaled qid and q2h prn , Not-Taking Dicyclomine HCl 10 MG Capsule 1 cap(s) orally ACHS , Not-Taking Jardiance 10 MG Tablet 1 tablet Orally Once a day , Medication List reviewed and reconciled with the patient * Allergies: R elafen DS, Sulfa Antibiotics, Clarithromycin, Zithromax, Rofecoxib, Macrobid, Oxytetracycline HCl: anaphylaxis, CEDAX, Lisinopril: rash, Lipitor, Maxzide, Amoxicillin. Objective: * Vitals: W t: 256.0, Temp: 97.9, BP: 126/80, HR: 81, Nurse: carlton, Ht: 66, BMI:41.31. * Examination: G eneral Examination: General Appearance: N AD, pleasant. H eart: R RR.?Lungs: n ormal, clear to auscultation. G astroenterology: Abdomen: e pigastric tenderness, BS diminished. ? Assessment: * Assessment: 1. P olyarthritis - M13.0 (Primary) 2 . S tomach pain - R10.9 ?3. H LD (hyperlipidemia) - E78.5 4 . L ymphedema - I89.0 ?5. A cquired hypothyroidism - E03.9 6 . V itamin D deficiency - E55.9 Plan: * Treatment: 2. S tomach pain Continue PriLOSEC OTC Tablet Delayed Release, 20 MG, 2 tab(s), orally, once a day; S top Voquezna Tablet, 10 MG, 1 tablet, Orally, Once a day. L AB: CBC Venipuncture (in house) L AB: P-Comprehensive Metabolic Panel (CMP) L AB: P-Lipase I maging: CT Scan : Abd & Pelvis with and without IV contrast only (Performed Date - 03/28/2025) U mbilical Hernia Notes: Will go ahead and order CT scan and send in referral to gastro, watch the foods she eats; bland diet? Referral To:. Gastroenterology??Gastroenterology ?Reason:on goingstomach pain with nausea 3.?HLD (hyperlipidemia)?LAB: P-Lipid Panel4.?Lymphedema? Notes: continue with support hose??5.?Acquired hypothyroidism?LAB: P-TSH6.?Vitamin D deficiency?LAB: P-Vitamin D, 1, 25 Dihydroxy7.?Others? Notes: to return to office for labs as listed?? * Procedure Codes: G 2211 Complex e/[place], [address] CBC WITH AUTO DIFF, 55889 VENIPUNCT, ROUTINE*, 1036F TOBACCO NON-USER, G8752 MOST RECENT SYSTOLIC BP < 140MM HG, G8754 MOST RECENT DIASTOLIC BP < 90MM HG * Follow Up: a fter CT prn * Images: Billing Information: * Visit Code: 80884 Office Visit, Est Pt., Level 3. * Procedure Codes: G2211 Complex e/[place]. [address] CBC WITH AUTO DIFF. 11899 VENIPUNCT, ROUTINE*. 1036F TOBACCO NON-USER. G8752 MOST RECENT SYSTOLIC BP < 140MM HG. G8754 MOST RECENT DIASTOLIC BP < 90MM HG. * Electronic signature of Ny Sutton APRN on 07/05/2025 at 08:48 AM EDT Sign off status: Pending * Provider: QUINTIN Garza Date: 0 03/14/2025 Generated for Ish salazar/Andry/Melinda on: 0 07/05/2025 08:48 AM EDT History and Physical Notes * HPI (History of Present Illness) Category Sub-Category Detail Notes Category Not es Gastroenterology Vomiting Abdominal Pain Nausea Heartburn Acid Reflux Belching HPI Patient is here today for Pt is here today for a f/u. Pt sts she is still having all of the symptoms as before. Pt did finish the antibiotics Examination Category Sub-Category Detail Notes Category Not es General Examination Heart: RRR Lungs: normal, clear to aus cultation General Appearance: NAD, pleasant Gastroenterology Abdomen: epigastric tenderness, B S diminished Consultation Request Notes Referral Date Referring Provider Referred Provider Not es 03/14/2025 Obdulia Sutton Gastroenterology, . on going stomach pain with nausea
--- OUTSIDE RECORDS SUMMARY | 2025-03-15 05:00 | XMS_ITS ---
Author Organization [facility] Address [address] [facility] [address] [place] [id number] Care Team Providers Care Story Analyst Name Role Phone Phuong Delgado Primary Care Provider Obdulia Sutton Unavailable [phone] Results Component Value Reference Range Notes CBC Venipuncture (in house) Reviewed date:03/21/2025 09:41:13 AM Interpretation: Performing Lab: Notes/Report: wbc 8.5 3.5 - 10 lymph 26.7% 15 - 50 mid 6.3% 2 - 15 gran 67.0% 35 - 80 rbc 4.85 3.5 - 5.5 hgb 14.7 11.5 - 16.5 hct 43.6 35 - 55 mcv 89.9 75 - 100 mch 30.3 25 - 35 mchc 33.6 31 - 38 platlet 251 100 - 400 P-Comprehensive Metabolic Pa med (CMP) Reviewed date:03/21/2025 01:09:21 PM Interpretation:BS 144 Performing Lab: Notes/Report: Test performed by [employer], [employer] [facility] , [address], [place] [address] Dave Topete MD, International Trade Teacher CLIA: [id number] Sodium 143 135-145 mmol/L Potassium 4.3 3.5-5.3 mmol/L Chloride 108 97-108 mmol/L CO2 21 22-32 mmol/L Glucose 144 65-99 mg/dL BUN 15 8-23 mg/dL Creatinine 0.76 0.50-1.00 mg/dL Calcium 8.9 8.6-10.4 mg/dL eGFR by Creatinine 85 >59 mL/min/1.73m2 Protein 6.3 6.0-8.3 g/dL Albumin 4.0 3.5-5.3 g/dL Alkaline Phosphatase 73 35-121 IU/L ALT (SGPT) 16 <5-47 IU/L AST (SGOT) 21 <5-40 IU/L Bilirubin, Total 0.5 <0.2-1.2 mg/dL A/G Ratio 1.7 1.1-2.5 [facility] Reviewed date:03/21/2025 01:08:58 PM Interpretation: Performing Lab: Notes/Report: Test performed by [employer] [address] [place], [place] [address] [place] , [address], [place] [address] Dave Topete MD, International Trade Teacher CLIA: [id number] Erythrocyte Sedimentation Rate (ESR), Automated 31 <31 mm/hr Rheumatoid Factor <10 <14.1 IU/mL C-Reactive Protein (CRP) 0.93 <0.50 mg/dL Antinuclear Antibodies (ELLY) Screen, Reflex ELLY 9 Panel Negative Negative This test is performed by Multiplex Bead Immunoassay methodology. Antinuclear Antibodies (ELLY) Result Note SEE COMMENT For positive Autoantibodies, please refer to the interpretive chart here: [email or web address] CCP Antibodies <0.5 <0.5-3.0 U/mL P-Lipase Reviewed date:03/21/2025 01:09:44 PM Interpretation:31.8 Performing Lab: Notes/Report: Test performed by [employer] [address] [place], [place] [address] [place] , [address], [place] [address] Dave Topete MD, International Trade Teacher CLIA: [id number] Lipase 31.8 13.0-60.0 u/L P-Lipid Panel Reviewed date:03/21/2025 01:10:10 PM Interpretation:HDL 51; LDL 114; TG 92 Performing Lab: Notes/Report: Test performed by [employer] [address] [place], [place] [address] [place] , [address], [place] [address] Dave Topete MD, International Trade Teacher CLIA: [id number] Cholesterol 183 <200 mg/dL Triglycerides 92 <150 mg/dL HDL Cholesterol 51 >39 mg/dL Cholesterol / HDL Ratio 3.59 0.00-4.44 Ratio Non-HDL Cholesterol 132 <130 mg/dL LDL Cholesterol (Calculation) 114 <130 mg/dL LDL Cholesterol Levels* Less than 100 mg/dL Optimal 100 to 129 mg/dL Near Optimal/ Above Optimal 130 to 159 mg/dL Borderline High 160 to 189 mg/dL High 190 mg/dL and above Very High * Categories as recommended by the 2004 ATPIII guidelines LDL/HDL Ratio 2.2 <3.3 Ratio LDL Cholesterol Patient History Test Date: 01/08/2024 LDL Results: 138 Units: mg/dL % Change: - Test Date: 07/09/2024 LDL Results: 103 Units: mg/dL % Change: -25% Test Date: 03/15/2025 LDL Results: 114 Units: mg/dL % Change: +10% P-TSH Reviewed date:03/21/2025 01:10:32 PM Interpretation:0.73 Performing Lab: Notes/Report: Test performed by [employer] [address] [place] [address] , [address], [place] [address] Dave Topete MD, International Trade Teacher CLIA: [id number] TSH 0.73 0.43-5.25 mU/L P-Vitamin D, 1, 25 Dihydroxy Reviewed date:03/21/2025 01:10:58 PM Interpretation:31.2 Performing Lab: Notes/Report: Test performed by [employer] [address] [place] [address] , [address], [place] [address] Dave Topete MD, International Trade Teacher CLIA: [id number] Vitamin D, 1, 25 Dihydroxy 31.2 19.9-79.3 pg/m L REASON FOR VISIT Arthritis BW Medications Medication SIG (Take, Route, Frequency, Duration) Notes Start Date End Date Status Jardiance 10 MG 1 tablet Orally Once a day 05/27/2023 Not-Taking Albuterol Sulfate HFA 108 (90 Base) MCG/ACT 2 puff(s) inhaled qid and q2h prn 05/21/2022 Not-Taking Dicyclomine HCl 10 MG 1 cap(s) orally ACHS 022 Not-Taking Cipro 500 MG 1 tablet Orally ever y 12 hrs; Duration: 3 days Not-Taking PriLOSEC OTC 20 MG 2 tab(s) orally once a day Active Torsemide 10 MG 1 tablet Orally Once a day Active Compression Stockings - as directed 07/08/2024 Active Fish Oil 500 MG 2 cap(s) orally 2 ti mes a day Active Vitamin B Complex - 1 tab(s) orally once a day; Duration: 30 day(s) Active Levothyroxine Sodium 75 mcg TAKE ONE TABLET BY MOUTH EVERY DAY; Duration: 30 Active Vitamin D3 25 MCG (1000 UT) 1 cap(s) orally once a day; Duration: 30 day(s) 01/30/2016 Active Multivitamin - 1 tab(s) orally once a day; Duration: 30 day(s) Active Entresto 49-51 MG 1 tablet Orally Twic e a day Active Emgality 120 MG/ML as directed Subcutaneous Active Spironolactone 50 MG 1 tablet Orally Onc e a day Active Encounters Encounter Location Date Provider Diagnosis [facility] [address] [place] [id number] 03/15/2025 Obdulia Sutton Polyarthritis M13.0 ; HLD (hyperlipidemia) E78.5 ; Hypothyroidism E03.9 ; Vitamin D deficiency E55.9 and Stomach pain R10.9 Assessments Encounter Date Diagnosis (ICD Code) Assessment Notes Treatment Notes Treatment Clinical Notes Section Notes 03/15/2025 Polyarthritis (ICD-10 - M13.0) 03/15/2025 HLD (hyperlipidemia) (ICD-10 - E78.5) 03/15/2025 Hypothyroidism (ICD-10 - E03.9) 03/15/2025 Vitamin D deficiency (ICD-10 - E55.9) 03/15/2025 Stomach pain (ICD-10 - R10.9) Plan Of Treatment No Information Progress Notes * YESSICA NOELB: (70 yo F)Acc No.[id number]:03/15/2025 Patient: DARIN PABLO Account Number:[id number] Provider: QUINTIN Garza :1955 A ge:69 Y S ex:Female Date:03/15/2025 Address:[facility] [address], [place], [id number] Pcp:Phuong Delgado Subjective: * Chief Complaints: * 1 . Arthritis BW. * Medical History: * Medications: T aking Spironolactone 50 MG Tablet 1 tablet Orally Once a day , Taking Entresto 49-51 MG Tablet 1 tablet Orally Twice a day , Taking Emgality 120 MG/ML Solution Auto-injector as directed Subcutaneous , Taking Vitamin D3 25 MCG (1000 UT) Capsule 1 cap(s) orally once a day , Taking Multivitamin [...] TABLET BY MOUTH EVERY DAY , Taking PriLOSEC OTC 20 MG Tablet Delayed Release 2 tab(s) orally once a day , Not-Taking Cipro 500 MG [...] List reviewed and reconciled with the patient Objective: * Vitals: Assessment: * Assessment: 1. P olyarthritis - M13.0 (Primary) 2 . H LD (hyperlipidemia) - E78.5 ? 3 . H ypothyroidism - E03.9 4 . V itamin D deficiency - E55.9? 5. S tomach pain - R10.9 Plan: * Treatment: Value Reference Range A ntinuclear Antibodies (ELLY) Result Note SEE COMMENT - * A ntinuclear Antibodies (ELLY) Screen, Reflex ELLY 9 Panel Negative Negative - * C CP Antibodies <0.5 <0.5-3.0 - U/mL * C -Reactive Protein (CRP) 0.93 H <0.50 - mg/dL * E rythrocyte Sedimentation Rate (ESR), Automated 31 H <31 - mm/hr * R heumatoid Factor <10 <14.1 - IU/mL * Obdulia Sutton 03/21/2025 01:08:40 PM EDT >I spoke with pt and reported results 2.?HLD (hyperlipidemia)?LAB: P-Lipid Panel (Collection Date & Time - 03/15/2025 08:04 AM)?HDL 51; LDL 114; TG 92* Value Reference Range C holesterol / HDL Ratio 3.59 0.00-4.44 - Ratio * C holesterol 183 <200 - mg/dL * H DL Cholesterol 51 >39 - mg/dL * L DL Cholesterol (Calculation) 114 <130 - mg/d L * L DL/HDL Ratio 2.2 <3.3 - Ratio * N on-HDL Cholesterol 132 H <130 - mg/dL * T riglycerides 92 <150 - mg/dL * Obdulia Sutton 03/21/2025 01:09:52 PM EDT >I spoke with pt and reported results 3.?Hypothyroidism?LAB: P-TSH (Collection Date & Time - 03/15/2025 08:04 AM)?0.73* Value Reference Range T SH 0.73 0.43-5.25 - mU/L * Gwendolyn Suttonine 03/21/2025 01:10:17 PM EDT >I spoke with pt and reported results 4.?Vitamin D deficiency?LAB: P-Vitamin D, 1, 25 Dihydroxy (Collection Date & Time - 03/15/2025 08:04 AM)?31.2* Value Reference Range V itamin D, 1, 25 Dihydroxy 31.2 19.9-79.3 - pg /mL * Obdulia Sutton 03/21/2025 01:10:40 PM EDT >I spoke with pt and reported results 5.?Stomach pain?LAB: P-Comprehensive Metabolic Panel (CMP) (Collection Date & Time - 03/15/2025 08:04 AM)?BS 144* Value Reference Range A /G Ratio 1.7 1.1-2.5 - * A lbumin 4.0 3.5-5.3 - g/dL * A lkaline Phosphatase 73 35-121 - IU/L * A LT (SGPT) 16 <5-47 - IU/L * A ST (SGOT) 21 <5-40 - IU/L * B ilirubin, Total 0.5 <0.2-1.2 - mg/dL * B UN 15 8-23 - mg/dL * C alcium 8.9 8.6-10.4 - mg/dL * C hloride 108 97-108 - mmol/L * C O2 21 L 22-32 - mmol/L * C reatinine 0.76 0.50-1.00 - mg/dL * G lucose 144 H 65-99 - mg/dL * P otassium 4.3 3.5-5.3 - mmol/L * S odium 143 135-145 - mmol/L * P rotein 6.3 6.0-8.3 - g/dL * e GFR by Creatinine 85 >59 - mL/min/1.73m2 * Obdulia Sutton 03/21/2025 01:09:07 PM EDT >I spoke with pt and reported results ?LAB: P-Lipase (Collection Date & Time - 03/15/2025 08:04 AM)?31.8* Value Reference Range L ipase 31.8 13.0-60.0 - u/L * Obdulia Sutton 03/21/2025 01:09:30 PM EDT >I spoke with pt and reported results ?LAB: CBC Venipuncture (in house) (Collection Date & Time - 03/15/2025)* Value Reference Range w bc 8.5 3.5 - 10 * l ymph 26.7% 15 - 50 * m id 6.3% 2 - 15 * g ran 67.0% 35 - 80 * r bc 4.85 3.5 - 5.5 * h gb 14.7 11.5 - 16.5 * h ct 43.6 35 - 55 * m cv 89.9 75 - 100 * m ch 30.3 25 - 35 * m chc 33.6 31 - 38 * p latlet 251 100 - 400 * Iona Hahn 03/15/2025 10:03:4 4 AM EDT >Obdulia Sutton 03/21/2025 09:40:58 AM EDT >discussed results with pt * Procedure Codes: 8 5025 CBC WITH AUTO DIFF * Images: Billing Information: * Visit Code: * Procedure Codes: 04575 CBC WITH AUTO DIFF. * Electronic signature of Ny Sutton APRN on 07/05/2025 at 08:49 AM EDT Sign off status: Pending * Provider: QUINTIN Garza Date: 03/15/2025 Generated for Aliyai ng/Fabrittanyg/eTransmitting on: 0 07/05/2025 08:49 AM EDT
--- OUTSIDE RECORDS SUMMARY | 2025-07-05 08:49 | XMS_ITS | Referral Summary ---
Author Organization [employer] ([place], [place], [place], [place]) Address [address] [place] [address] Care Team Providers Care Director Of Strategic Programs Name Role Phone Unavailable Primary Care Provider [...] Date Joseph rded Speak language other than Burkinan at home Not on file 03/23/2024 Want [...]
--- OUTSIDE RECORDS SUMMARY | 2025-07-05 08:49 | XMS_ITS | Clinical Summary ---
Author Organization [employer] ([place], [place], [place], [place]) Address [address] [place] [address] Care Team Providers Care Applications Development Analyst Name Role Phone Unavailable Primary Care Provider [...] Date Joseph rded Speak language other than Croatian at home Not on file 03/23/2024 Want [...] 2) 2007 Breast Cancer Screening 12/10/2017 12/11/2015 Falls Risk Screening 10/13/2024 COVID-19 VACCINE ( season) 2025 08/29/2021, 12/13/2020, 11/15/2020 Influenza Vaccine (#1) 2025 10/16/2020 Respiratory Syncytial Virus (RSV) Adult or (1 - 1-dose 75+ series) 2032 Pneumococcal 50+ years Completed 08/13/2023
--- OUTSIDE RECORDS SUMMARY | 2025-07-05 08:49 | XMS_ITS | Patient Health Record ---
Author Organization [facility] Address [address] [place] [id number] Care Team Providers Care Rn Er Name Role Phone Phuong Delgado Primary Care Provider [phone] Obdulia Sutton Unavailable [phone] Allergies Allergen (clinical drug ingredient) Drug/Non Drug [...] - 38 platlet 251 100 - 400 P-TSH Reviewed date:07/11/2024 10:31:00 PM Interpretation: Performing Lab: Notes/Report: CLIA: [id number] Dave Topete MD, Metallographer [address] [place] [address] , [place] [address] Test performed by [facility] TSH 1.50 0.43-5.25 mU/L P-Lipid Panel Reviewed date:07/11/2024 10:31:00 PM Interpretation: Performing Lab: Notes/Report: Test performed by [facility] [address] [place] [address] , [address], [place] [address] Dave Topete MD, Metallographer CLIA: [id number] Cholesterol 173 <200 mg/dL Triglycerides 132 <150 [...] Results: 103 Units: mg/dL % Change: -25% P-Comprehensive Metabolic Pa med (CMP) Reviewed date:07/11/2024 10:31:00 PM Interpretation: Performing Lab: Notes/Report: Test performed by [email or web address], [address] , [address], [place] [address] Dave Topete MD, Metallographer CLIA: [id number] Sodium 142 135-145 mmol/L Potassium 4.3 3.5-5.3 [...] 0.4 <0.2-1.2 mg/dL A/G Ratio 1.7 1.1-2.5 Glycohemoglobin A1c (in hous e) Reviewed date:07/11/2024 10:31:01 PM Interpretation:6.0% Performing Lab: Notes/Report: 6.0% glycohemoglobin 6.0% 5 - 6.5 % colonoscopy Reviewed date:01/03/2025 04:27:07 PM Interpretation:polyps, diverticulosis, hemorrhoids, repeat 5 years Performing Lab: Notes/Report: polyps, diverticulosis, hemorrhoids, repeat 5 years result: polyps, diverticulosis, hemorrhoids repeat study: 5 years Bone density Reviewed date:07/20/2024 04:04:57 PM Interpretation:Normal Performing Lab: Notes/Report: Normal P-Comprehensive Metabolic Pa med (CMP) Reviewed date:03/21/2025 01:09:21 PM Interpretation:BS 144 Performing Lab: Notes/Report: CLIA: [id number] Dave Topete MD, Metallographer [facility] , [address], [place] [address] Test performed by [facility] Sodium 143 135-145 mmol/L Potassium 4.3 3.5-5.3 [...] Interpretation: Performing Lab: Notes/Report: Test performed by [facility] [address] [place] [address] , [address], [place] [address] Dave Topete MD, Metallographer CLIA: [id number] Erythrocyte Sedimentation Rate (ESR), Automated 31 <31 mm/hr Rheumatoid Factor <10 <14.1 IU/mL C-Reactive Protein (CRP) 0.93 <0.50 mg/dL Antinuclear Antibodies (ELLY) Screen, Reflex ELLY 9 Panel Negative Negative This test is perform ed by Multiplex Bead Immunoassay methodology. Antinuclear Antibodies (ELLY) Result Note SEE COMMENT For positive Autoantibodies, please refer to the interpretive chart here: [email or web address] CCP Antibodies <0.5 <0.5-3.0 U/mL P-Lipase Reviewed date:03/21/2025 01:09:44 PM Interpretation:31.8 Performing Lab: Notes/Report: Test performed by [facility] [address] [place], [place] [address] , [address], [place] [address] Dave Topete MD, Metallographer CLIA: [id number] Lipase 31.8 13.0-60.0 u/L P-Lipid Panel Reviewed date:03/21/2025 01:10:10 PM Interpretation:HDL 51; LDL 114; TG 92 Performing Lab: Notes/Report: Test performed by [facility] [address] [place], [place] [address] , [address], [place] [address] Dave Topete MD, Metallographer CLIA: [id number] Cholesterol 183 <200 mg/dL Triglycerides 92 <150 [...] Interpretation:0.73 Performing Lab: Notes/Report: Test performed by [facility] [address] [place] [address] , [place] [address] Dave Topete MD, Metallographer CLIA: [id number] TSH 0.73 0.43-5.25 mU/L P-Vitamin D, 1, 25 Dihydroxy Reviewed date:03/21/2025 01:10:58 PM Interpretation:31.2 Performing Lab: Notes/Report: Test performed by [facility] [address] [place] [address] , [place] [address] Dave Topete MD, Metallographer CLIA: [id number] Vitamin D, 1, 25 Dihydroxy 31.2 19.9-79.3 pg/mL P-Culture, Urine Reviewed date:03/09/2025 04:23:27 PM Interpretation: Performing Lab: Notes/Report: Test performed by [facility] [address] , [address], [place] [address] Dave Topete MD, Metallographer [facility]: [id number] Specimen Source Urine - Void Culture, Urine [...] 1.020 Ketone Trace Bili Neg Gluc Neg Pathology evaluation Reviewed date:01/10/2025 10:33:01 AM Interpretation:tubular [...] directed 07/08/2024 Active Levothyroxine Sodium 75 mcg 1 tablet orally once a day; Duration: 30 days Active Fish Oil 500 MG 2 cap(s) [...] tablet Orally Onc e a day Active PriLOSEC OTC 20 MG 2 tab(s) orally once a day Active Immunizations Vaccine Route Administration Date Status Comme nts xFluzone Intradermal (18-64yrs)-trivalent ID Intradermal 07/15/2014 Administered xFlu shot-36 months and older IM Intramuscular 09/14/2009 Administered Prevnar (PCV20) IM Intramuscular 08/13/2023 Administered PNEUMOVAX 23 VACCINE IM Intramuscular 01/04/2025 Administe red Fluzone Quad (6months&older) IM Intramuscular 07/19/2019 Administered Fluzone Quad (6months&older) IM Intramuscular 10/09/2021 Administered Fluzone PF Quad (6-35 months) Unknown 10/16/2020 Administered Fluzone High Dose (65yr and older) Unknown 08/30/2022 Pending Fluzone High Dose (65yr and older) IM Intramuscular 08/13/2023 Administered Fluzone High Dose (65yr and older) IM Intramuscular 07/08/2024 Administered COVID 19 Moderna Unknown 11/15/2020 Administered COVID 19 Moderna Unknown 12/13/2020 Administered COVID 19 Moderna Unknown 08/29/2021 Administered Problems Problem Type SNOMED Code ICD Code Onset Dates Problem Status W/U Status Risk Notes Problem Essential hypertension (43210866) Essential (primary) hypertension (I10) Active confirmed Problem Type 2 diabetes mellitus (01217461) Type 2 diabetes mellitus (E11.9) Active confirmed Problem Sciatica (11923001) Sciatica (M54.30) Active confirmed Problem Vitamin D deficiency (82283129) Vitamin D deficiency (E55.9) Active confirmed Problem Essential hypertension (70638690) Essential hypertension (I10) Active confirmed Problem Morbid obesity (671412171) Morbid obesity (E66.01) Active confirmed Problem Urinary incontinence (028093210) Urinary incontinence (R32) Active confirmed Problem Venous insufficiency of leg (disorder) (860197618) Venous insufficiency (I87.2) Active confirmed Problem Lymphedema (01525068) Lymphedema (I89.0) Active confirmed Problem Acquired hypothyroidism (812518793) Acquired hypothyroidism (E03.9) Active confirmed Problem Reactive depression (situational) (64671865) Situational depression (F43.21) Active confirmed Problem Hypothyroidism (09111228) Hypothyroidism (E03.9) Active confirmed Problem Polyarthritis (377244251) Polyarthritis (M13.0) Active confirmed Problem Body mass index 40+ - morbidly obese (713603895) BMI 40.0-44.9, adult (Z68.41) Active confirmed Problem Hyperlipidaemia (58141424) Hyperlipidemia, unspecified hyperlipidemia type (E78.5) Active confirmed Problem Migraine variant with headache (disorder) (023955360) Migraine headache (G43.909) Active confirmed Problem Transient ischemic attack (217571323) TIA (transient ischemic attack) (G45.9) Active confirmed Problem Hyperlipidaemia (13593072) HLD (hyperlipidemia) (E78.5) Active confirmed Problem Obese class II (304979469068263) BMI 39.0-39.9,adult (Z68.39) Active confirmed Problem Complicated migraine (005099661) Complicated migraine (G43.109) Active confirmed Problem Artificial knee joint present (797900942014) Knee joint replacement by other means (Z96.659) Active confirmed Problem Stasis dermatitis of left lower extremity due to peripheral venous hypertension (612628472163873) Stasis dermatitis of left lower extremity due to peripheral venous hypertension (I87.322) Active confirmed Problem Type 2 diabetes mellitus with other specified complication, unspecified whether long term care pharmacist insulin use (E11.69) Active confirmed Problem Chronic diastolic heart failure (989694061) Chronic heart failure with preserved ejection fraction (HFpEF) (I50.32) Active confirmed Vital Signs Heart Rate 81 /min 03/14/2025 Blood pressure diastolic 80 mm Hg 03/14/2025 Height 66 in 03/14/2025 Blood pressure systolic 126 mm Hg 03/14/2025 Weight 256.0 lbs 03/14/2025 BMI 41.31 kg/m2 03/14/2025 Encounters Encounter Location Date Provider Diagnosis [place] [address] [place] [id number] 07/08/2024 R Keegan Delgado Adult general medica [...] Urinary incontinence R32 and BMI 39.0-39.9,adult Z68.39 [facility] [address] [facility] [address] [place] [id number] 07/09/2024 Phuong Delgado Acquired hypothyroid ism E03.9 ; Hyperlipidemia, unspecified hyperlipidemia type E78.5 ; Type 2 diabetes mellitus E11.9 and Essential (primary) hypertension I10 [facility] [address] [place] [id number] 01/04/2025 Phuong Delgado Adult general medica l examination Z00.00 ; Chronic heart failure with preserved ejection fraction (HFpEF) I50.32 ; Essential hypertension I10 ; Acquired hypothyroidism E03.9 ; Type 2 diabetes mellitus E11.9 ; Lymphedema I89.0 ; Vitamin D deficiency E55.9 ; Knee joint replacement by other means Z96.659 and BMI 40.0-44.9, adult Z68.41 [facility] [address] [place] [id number] 02/28/2025 Obdulia Sutton Acute lower urinary tract infection N39.0 ; Abdominal discomfort, epigastric R10.13 ; Hyperlipidemia, unspecified hyperlipidemia type E78.5 ; Type 2 diabetes mellitus with other specified complication, unspecified whether long term care pharmacist insulin use E11.69 ; BMI 40.0-44.9, adult Z68.41 and Morbid obesity E66.01 [facility] [address] [address] [place] [id number] 03/14/2025 Obdulia Sutton Polyarthritis M13.0 ; Stomach pain R10.9 ; HLD (hyperlipidemia) E78.5 ; Lymphedema I89.0 ; Acquired hypothyroidism E03.9 and Vitamin D deficiency E55.9 [facility] [address] [place] [id number] 03/15/2025 Obdulia Sutton Polyarthritis M13.0 ; HLD (hyperlipidemia) E78.5 ; Hypothyroidism E03.9 ; Vitamin D deficiency E55.9 and Stomach pain R10.9 [facility] [place] [address] [place] [id number] 07/11/2024 Phuong Delgado [facility] [address] [place], [place] [id number] 07/28/2024 R Keegan Delgado Lymphedema I89.0 [place] [address] [place], [place] [id number] 11/29/2024 R Keegan Delgado [facility] [address] [place] [id number] 03/28/2025 R Keegan Delgado [facility] [address] [place], [place] [id number] 03/30/2025 Obdulia Sutton Assessments Encounter Date Diagnosis [...] 02/28/2025 Abdominal discomfort, epigastric (ICD-10 - R10.13) [place] diet without spicy, salty,acidic, greasy,carbona felipe drinks, or caffeine; discussed diet at length 03/14/2025 Stomach pain (ICD-10 - R10.9) Will go ahead and order CT scan and send in referral to gastro, watch the foods she eats; bland diet 03/14/2025 Polyarthritis (ICD-10 - M13.0) 03/15/2025 Polyarthritis (ICD-10 - M13.0) 03/15/2025 HLD (hyperlipidemia) (ICD-10 - E78.5) 03/14/2025 HLD (hyperlipidemia) (ICD-10 - E78.5) 02/28/2025 Hyperlipidemia, unspecified hyperlipidemia type (ICD-10 - E78.5) 03/15/2025 Hypothyroidism (ICD-10 - E03.9) 07/09/2024 Acquired hypothyroidism (ICD-10 - E03.9) 01/04/2025 Essential hypertension (ICD-10 - I10) 07/08/2024 Essential hypertension (ICD-10 - I10) 07/08/2024 Acquired hypothyroidism (ICD-10 - E03.9) 01/04/2025 Acquired hypothyroidism (ICD-10 - E03.9) 07/09/2024 Hyperlipidemia, unspecified hyperlipidemia type (ICD-10 - E78.5) 02/28/2025 Type 2 diabetes mellitus with other specified complication, unspecified whether alf insulin use (ICD-10 - E11.69) 03/14/2025 Lymphedema (ICD-10 - I89.0) continue with support hose 03/15/2025 Vitamin D deficiency (ICD-10 - E55.9) 03/15/2025 Stomach pain (ICD-10 - R10.9) 03/14/2025 Acquired hypothyroidism (ICD-10 - E03.9) 02/28/2025 BMI 40.0-44.9, adult (ICD-10 - Z68.41) 01/04/2025 Type 2 diabetes mellitus (ICD-10 - E11.9) 07/09/2024 Type 2 diabetes mellitus (ICD-10 - E11.9) 07/08/2024 Type 2 diabetes mellitus (ICD-10 - E11.9) 07/09/2024 Essential (primary) hypertension (ICD-10 - I10) 07/08/2024 Postmenopausal (ICD-10 - Z78.0) 01/04/2025 Lymphedema (ICD-10 - I89.0) 03/14/2025 Vitamin D deficiency (ICD-10 - E55.9) 02/28/2025 Morbid obesity (ICD-10 - E66.01) 01/04/2025 [...] Coverage End Date [employer] [address] [address] [place] [address] [id number] DARIN NOEL Self - patient is the insured MEDICARE PART B [address] [address] [place] [address] [id number] DARIN NOEL Self - patient is the [...] Hospitalization History Reason Date(Month/Year) TIA- 09/03/2019 TIA- [facility] 09/03/2019 Viral URI- [facility] [place] [place] 08/24/2018 Kidney Stone- [facility] ER 09/2012 Chest Pain- [facility] 06/09/2012
--- OUTSIDE RECORDS SUMMARY | 2025-07-05 08:49 | XMS_ITS | Clinical Summary ---
[facility] Address [address] [place] [address] Care Team Providers Care Delivery Helper Name Role Phone Randell Delgado MD Primary [...] 2002 ZOSTER VACCINE (1 of 2) 2007 INFLUENZA VACCINE 05/13/2025 10/09/2021, , 07/19/2019 COVID-19 Vaccine (2024-2 6 season) 2025 08/29/2021, 12/13/2020, 11/15/2020 MAMMOGRAM 10/11/2026 10/11/2024, 09/13, 08/13/2022, Additional history [...] Relevant to Health Maintenance Insurance [place] [id number] [facility] [employer] PPO Care Teams Delivery Helper Relationship Specialty Start Date End Date Randell Delgado MD [address] [facility] [address] [place] [address] PCP - General 12/07/15
--- OUTSIDE RECORDS SUMMARY | 2025-07-05 08:49 | XMS_ITS | Clinical Summary ---
Author Organization [facility] Address [address] [place] [address] Phone Care Team Providers Care Intermediate Manager Name Role Phone Unavailable Primary Care Provider [...] Oral CapsuleIndicat ions:Urinary frequency Daily Active omega 9-zjp-noy-fish oil 1,000 mg (250 mg-750 mg)/5 mL [...] Density Screening 2022 COVID-19 Vaccine ( season) 2025 08/29/2021, 12/13/2020, 11/15/2020 Influenza [...]
[2025-07-05 09:30] LABS: Chloride 105 mmol/L (98-107); Potassium 4.8 mmoL/L (3.5-5.1)
[2025-07-05 09:33] LABS: Blood Urea Nitrogen 11 mg/dl (7-17); Carbon Dioxide 29 mmol/L (22.0-30.0); Creatinine,Serum 0.80 mg/dl (0.52-1.04); Estimated Glomerular Filt Rate 71 ml/min (>60); GFR (African American) 86 ML/MIN (>60)
[2025-07-05 09:34] LABS: Calcium 9.2 mg/dl (8.4-10.2)
[2025-07-05 09:39] LABS: Anion Gap 12.8 mEq/L (5-15); Sodium 142 mmol/L (136-145)
[2025-07-05 09:43] LABS: Glucose 126 mg/dl (74-100)
== END 2025-07-05 23:59 | disposition home or self-care (01) ==
LOC: LAB 08:30
PROVIDERS: PCP Family Medicine; Visit Provider Internal Medicine
DX: I10 Essential (primary) hypertension (principal)
CPT/HCPCS: 36415; 80048

== ENCOUNTER 2025-07-07 08:00 | Outpatient (RCR) | payer MEDICARE, OTHER, SELFPAY ==
--- NOTE | 2025-06-27 16:07 | HMH.OPLYMPH ---
Rehab Lymphedema Evaluation Rehab Lymphedema Evaluation Start: 06/27/25 15:45 Freq: Status: Active Protocol: Document 06/27/25 15:46 EDY (Rec: 06/27/25 16:06 PHOMILES [id number]) E-signed By Kenney Akers, PT Subjective/History History History This is the initial PT Lymphedema eval for Mindy Berman, 70 yowf who presents with c/o increased B LE edema x ~ 1 mo with insidious onset of symptoms. 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 She also has PMH of (HFpEF) heart failure with preserved ejection fraction, R TKA, partial hysterectomy. She reports no c/o pain at this time, but some tenderness in B lower legs is noted. Edema results in difficulty wearing shows or donning her clothes. Subjective Subjective Pain 0/10 at this time. 2/4 TTP noted to B lower legs. B lower legs with mild erythema. 3+ pitting edema noted from mid-calf distally on B lower legs. Lymphedema Eval Classification of Lymphedema Secondary Lymphedema Yes Stemmer's sign Stemmer's Sign yes Stage of Lymphedema Lymphedema stages Stage II (Pitting edema, increased fibrosis w/ decreased pitting) Skin Changes Dry Skin Yes Skin Folds Yes Redness Yes Discoloration of Yes Skin Other Changes Yes Pain Scale Pain Scale (0-10) 0 Affected Extremities Areas Affected by Right Lower Extremity,Left Lower Extremity Lymphedema/Edema Lower Extremity Measurements Right MTP Measurement (cm) 26.5 Heel Measurement (cm 37.3 ) 10 cm Proximal to 32.6 Lateral Malleoli Measurement (cm) 20 cm Proximal to 35.5 Lateral Malleoli Measurement (cm) 30 cm Proximal to 45.2 Lateral Malleoli Measurement (cm) 40 cm Proximal to 0 Lateral Malleoli Measurement (cm) 50 cm Proximal to 0 Lateral Malleoli Measurement (cm) 60 cm Proximal to 0 Lateral Malleoli Measurement (cm) Lower Extremity 177.1 Measurement Total ( cm) Left MTP Measurement (cm) 25.8 Heel Measurement (cm 36.0 ) 10 cm Proximal to 30.4 Lateral Malleoli Measurement (cm) 20 cm Proximal to 36.4 Lateral Malleoli Measurement (cm) 30 cm Proximal to 43.5 Lateral Malleoli Measurement (cm) 40 cm Proximal to 0 Lateral Malleoli Measurement (cm) 50 cm Proximal to 0 Lateral Malleoli Measurement (cm) 60 cm Proximal to 0 Lateral Malleoli Measurement (cm) Lower Extremity 172.1 Measurement Total ( cm) Manual Lymphatic Drainage Treatment Area MLD Treatment Area Right Lower Extremity,Left Lower Extremity Wound Problems/Impairments Impairments Problems/ Palpation Tenderness,Impaired Endurance,Impaired Impairmments Walking,Impaired Standing,Impaired Dressing,Impaired Household Care,Increased Edema,Lymphedema Present, Impaired Self Care/Self Management Prognosis Rehab Potential Good Comment Skilled therapy services are indicated in order to aid reduction of overall edema and aid pt improvement in QOL. Clinical Impression Consistent with Yes Diagnosis Consistent with Also Additional details: Lymphedema I89.0 Lymphedema Patient Goals Lymphedema Patient Goals Lymphedema Short in 2 wks pt will: Term Patient Goals 1) Reduce pitting edema to 2+ in B LE 2) Reduce circumferential measurements to B LE by 5 cm Lymphedema Mother Repairer in 4 wks pt will: Patient Goals 1) Reduce pitting edema to 1+ in B LE 2) Reduce circumferential measurements to B LE by 15 cm 3) Be independent with donning/doffing of compression garments 4) be independent with Lymphedema management via [facility] Outpatient Therapy Plan of Care Treatment Plan May Include Therapeutic Exercise Yes Including Home Exercise Program Manual Therapy Yes Techniques Neuromuscular Re- Yes education Therapeutic Yes Activities to Return to Previous Functional/Work Level ADL/Self Care Yes Education Orthotics/Bracing/ Yes Splinting Manual Lymphatic Yes Drainage Eval/Re-Eval Yes Frequency Times per week 2 Duration Number of Weeks 4 Addendums This patient is a No candidate for social or vocational rehab ? Patient/Guardian Yes verbally acknowledges understanding of treatment program and consents to further treatment? Patient/Guardian Yes verbally acknowledges understanding of diagnosis, prognosis and goals for treatment? Eval Complexity PT Charges 84281 - High Complexity PHYSICIAN CERTIFICATION: I certify the specified therapy services for Mindy Berman are required, authorized, and reviewed every 30 days.
== END 2025-07-07 23:59 | disposition home or self-care (01) ==
LOC: PT 08:00
PROVIDERS: PCP Family Medicine; Visit Provider Internal Medicine
DX: R60.9 Edema, unspecified (principal); I10 Essential (primary) hypertension
CPT/HCPCS: 97140; 97163

== ENCOUNTER 2025-07-14 09:57 | Day surgery (SDC) | payer MEDICARE, OTHER, SELFPAY ==
[2025-07-12 10:29] VITALS: BMI 43.2
--- NOTE | 2025-07-13 15:48 | EXP.HP ---
History of Present Illness *Admission Date: 07/14/25 *History of present illness: Mrs. Berman is a 70-year-old female who is here for diagnostic EGD. At the beginning of this year she started having abdominal discomfort which was similar to what she was having when she was on Wegovy last year. She developed epigastric abdominal pain and discomfort usually in the mornings. She gets occasional nausea. She has persistent early satiety, bloating, gassiness and belching. She is on omeprazole 20 mg by mouth daily and continues to have some heartburn and reflux. She also has had some esophageal chest pain. The examination is deemed medically necessary for diagnostic EGD. The patient has been seen, interviewed and examined prior to the procedure by both myself and the anesthesia provider. [facility] Disclaimer: The information contained in this section may have been updated after the patient was seen, as this information can be updated by other users. Medical History SOB (shortness of breath) Abnormal findings on diagnostic imaging of heart and coronary circulation Bronchitis Sinusitis History of cataract BMI 40.0-44.9, adult (HFpEF) heart failure with preserved ejection fraction Blurry vision Neck pain Dizziness Palpitations Syncope Near syncope Equivocal stress test Edema Sinus bradycardia Atypical angina Surgical History Hx of cardiac catheterization History of right knee joint replacement History of hip surgery History of cholecystectomy History of partial hysterectomy Family History Other Cancer Coronary artery disease Diabetes Heart attack Hypertension Stroke Social History Smoking Status: Never smoker alcohol intake: never substance use type: denies use current occupational status: retired Travel in the last 8 weeks?: None household members: spouse housing: house caffeine: No Have you lived/traveled outside US in past 30 days?: No Contact w/someone who lives/traveled outside US past 30 days?: No Exposure to someone with infectious disease in past 14 days?: No Do you have a fever (greater than 100.4 F or 38 C)?: No Have you tested positive for COVID-19?: No Exposed to someone with COVID-19 in past 14 days?: No Do you have a sore throat?: No Do you have a cough?: No Do you have any weakness?: No Do you have any diarrhea?: No Are you experiencing any unusual bleeding?: No Do you have any muscle aches/pain?: No Do you have any abdominal pain?: No Are you experiencing loss of taste or smell?: No Other Medical History Have you received the Flu Vaccine for this season: Yes Have you received the Pneumonia Vaccine: Yes Review of Systems Review of Systems Review of systems (narrative): Negative *Cardiovascular Comments: Negative *Gastrointestinal Comments: Negative *Genitourinary Comments: Negative *Musculoskeletal Comments: Negative *Neurologic Comments: Negative Meds Home Medications and Allergies Home Medications ?Medication ?Instructions ?Recorded ?Confirmed ?Type levothyroxine 50 mcg capsule 75 mcg PO DAILY 07/10/23 07/14/25 History sacubitril 97 mg-valsartan 103 mg 1 tab PO BID 04/25/25 07/14/25 History tablet (Entresto) omeprazole 40 mg capsule,delayed 40 mg PO DAILY #90 caps 05/11/25 07/14/25 Rx release psyllium husk 3.4 gram/5.8 gram 1.65 g PO DAILY 05/11/25 07/14/25 History oral powder (Metamucil Sugar-Free (aspartame)) potassium chloride 20 mEq 20 meq PO DAILY #30 tabs 05/27/25 07/14/25 Rx tablet,extended release (K-Tab) bumetanide 2 mg tablet 2 mg PO DAILY #30 tabs 06/14/25 07/14/25 Rx galcanezumab-gnlm 120 mg/mL 120 mg SQ QMONTH 30 days #1 mL 07/06/25 07/14/25 Rx subcutaneous pen injector (Emgality Pen) spironolactone 100 mg tablet 100 mg PO DAILY #30 tabs 07/06/25 07/14/25 Rx (Aldactone) ubrogepant 100 mg tablet (Ubrelvy) 100 mg PO .COMPLEX PRN migraines 07/06/25 07/14/25 Rx #10 tabs New Prescriptions to Start Prescriptions: Allergies Allergy/AdvReac Type Severity Reaction Status Date / Time amoxicillin Allergy Mild Unknown Verified 07/14/25 10:58 allergy reaction ciprofloxacin Allergy Mild Rash Verified 07/14/25 10:58 azithromycin Allergy Unknown Hives Verified 07/14/25 10:58 celecoxib Allergy Unknown Unknown Verified 07/14/25 10:58 allergy reaction hydrochlorothiazide Allergy Unknown Rash Verified 07/14/25 10:58 Macrolide Antibiotics Allergy Unknown Rash Verified 07/14/25 10:58 NSAIDS (Non-Steroidal Allergy Unknown Rash Verified 07/14/25 10:58 Anti-Inflamma oxytetracycline Allergy Unknown Rash Verified 07/14/25 10:58 rofecoxib (From Vioxx) Allergy Unknown Rash Verified 07/14/25 10:58 Pgbivql-KAU-BtF Reductase Allergy Unknown Rash Verified 07/14/25 10:58 Inhibitor Sulfa (Sulfonamide Allergy Unknown Difficulty Verified 07/14/25 10:58 Antibiotics) Breathing tetracycline Allergy Unknown Rash Verified 07/14/25 10:58 Thiazides Allergy Unknown Rash Verified 07/14/25 10:58 triamterene Allergy Unknown Rash Verified 07/14/25 10:58 empagliflozin (From Allergy Other Verified 07/14/25 10:58 Jardiance) atorvastatin (From Lipitor) AdvReac Severe sob, Verified 07/14/25 10:58 fatigue,joint pain rosuvastatin (From Crestor) AdvReac Severe fatigue, Verified 07/14/25 10:58 sob, joint pain amlodipine AdvReac facial Verified 07/14/25 10:58 flushing Exam Data for Last 24 hours I & O for Last 24 hours: Intake & Output 07/10/25 07/11/25 07/12/25 07/13/25 23:59 23:59 23:59 23:59 Weight 260 lb *Routine HEENT Exam Head: Present normocephalic Eye: Present EOMI and PERRL ENT: Present mucous membranes moist *Routine Neck Exam Neck: Present supple *Routine Respiratory Exam Respiratory: Present CTA bilaterally *Routine Cardiovascular Exam Cardiovascular: Present RRR *Routine Abdominal Exam Abdominal: Present soft and normoactive bowel sounds; Absent tenderness *Routine Rectal Exam Rectal:: deferred *Routine Genitalia Exam Genitalia:: deferred *Routine Extremities Exam Extremities: Absent cyanosis, clubbing or edema *Routine Skin Exam Skin: Present warm; Absent rash *Routine Neurological Exam Neurological: Present alert and oriented X3 Assessment and Plan *Assessment and plan (1) Epigastric pain: Status: Acute Category: Medical Code(s): R10.13 - Epigastric pain (2) Early satiety: Status: Acute Category: Medical Code(s): R68.81 - Early satiety (3) Bloating: Status: Acute Category: Medical Code(s): R14.0 - Abdominal distension (gaseous) (4) Acid reflux: Status: Acute Category: Medical Code(s): K21.9 - Gastro-esophageal reflux disease without esophagitis (5) Nausea: Status: Acute Category: Medical Code(s): R11.0 - Nausea (6) Dyspepsia: Status: Acute Category: Medical Code(s): R10.13 - Epigastric pain Plan A/P: 1. Epigastric pain, fullness, bloating, reflux, nausea and dyspepsia is the preprocedural diagnosis. The patient will be anesthetized/sedated using MAC sedation. The patient has been seen and examined. Cardiac and lung assessment prior to the examination is stable. Proceed with planned diagnostic EGD.
--- NOTE | 2025-07-14 06:38 | P.PCN_ITS ---
[facility] Procedure Note Date: 07/14/25 Time: 12:16 Procedure Note:: Upper Endoscopy Procedure Report: Esophagogastroduodenoscopy with cold biopsies and TTS balloon dilation Endoscopost: John Escalante II, MD Referring Physician: Keegan Delgado MD Date of Procedure: July 14, 2025 Equipment: Olympus GIF-1100 standard upper endoscope Sedation: MAC sedation Indications: Mrs. Berman is a 70-year-old female who is here for diagnostic EGD. At the beginning of this year she started having abdominal discomfort which was similar to what she was having when she was on Wegovy last year. She developed epigastric abdominal pain and discomfort usually in the mornings. She gets occasional nausea. She has persistent early satiety, bloating, gassiness and belching. She continues to get epigastric abdominal discomfort. She does have occasional dysphagia if she eats sandwiches. She is on omeprazole 20 mg by mouth daily and continues to have some heartburn and reflux. She also has had some esophageal chest pain. The patient is inquiring about initiation of one of the GLP-1 medications. The examination is deemed medically necessary for diagnostic EGD. Procedure: Prior to the procedure, a history and physical exam was performed, and patient's medications and allergies were reviewed. The risks, benefits and alternatives of the sedation and procedure were discussed with the patient. All questions were answered and informed consent was obtained. The patient was brought to the procedure room. Patient identification and proposed procedure were verified by the physician and the nurse. The patient was placed in a left lateral decubitus position and the scope was passed under direct vision. Throughout the procedure, the patient's blood pressure, pulse, and oxygen saturations were monitored continuously. The upper GI endoscopy was accomplished without difficulty. The patient tolerated the procedure well. Findings: The scope was passed directly into the upper esophagus and advanced to the third portion of the duodenum. The post bulbar duodenum and duodenal bulb were normal with normal mucosa and conniventes. A cold biopsy was taken from the second portion of the duodenum for the disaccharidase assay. The scope was withdrawn through a normal duodenal bulb and pylorus into the stomach. There was bile reflux with moderate linear reactive gastropathy of the antrum and body of the stomach. Cold biopsies were taken. The fundus of the stomach was lg l. Upon retroflexion there was a small 2 cm hiatal hernia. The scope was then withdrawn into the esophagus. There was no evidence of reflux esophagitis or Keen's. There were tertiary contractions and evidence of mild esophageal dysmotility. The entire esophagus was dilated to 60 [place] and there was some mild resistance at the cricopharyngeus. The remainder of the esophageal mucosa was normal. Impression: 1. Nonerosive GERD with mild esophageal dysmotility and small 2 cm hiatal hernia 2. Bile reflux with moderate linear reactive gastropathy Plan: I will follow-up the biopsies and disaccharidase assay. The patient does have functional dyspepsia. Most of her symptoms of heartburn and dyspepsia are related to and driven by lower intestinal gas pressure gradients/high gas press ure buildup resulting in backflow of bile and peptic fluid from the duodenum into the stomach (duodenal reflux). This gas production (carbon dioxide, hydrogen, methane, etc.) from the lower intestinal tract is the byproduct of colonic bacterial fermentation. This colonic fermentation occurs when there is more carbohydrate (dietary starches, sugars and high residue plant fiber) substrate that does not get digested (in the middle or small intestine) or occurs when there is colonic fecal buildup and colonic bacterial overgrowth. This indeed leads to bloating and the gas pressure buildup with gas pressure gradients that do drive backflow and dyspepsia.
[2025-07-14 11:03] VITALS: BP 173/91; PULSE 76; RESP 16; TEMP 36.3; O2SAT 96
[2025-07-14] MEDS: LACTATED RINGERS 1000ML 1,000 ML 50 ML IV (11:07)
--- NOTE | 2025-07-14 11:22 | EXP.ANES.CKL ---
[facility] Disclaimer: The information contained in this section may have been updated after the patient was seen, as this information can be updated by other users. Medical History SOB (shortness of breath) Abnormal findings on diagnostic imaging of heart and coronary circulation Bronchitis Sinusitis History of cataract BMI 40.0-44.9, adult (HFpEF) heart failure with preserved ejection fraction Blurry vision Neck pain Dizziness Palpitations Syncope Near syncope Equivocal stress test Edema Sinus bradycardia Atypical angina Surgical History Hx of cardiac catheterization History of right knee joint replacement History of hip surgery History of cholecystectomy History of partial hysterectomy Family History Other Cancer Coronary artery disease Diabetes Heart attack Hypertension Stroke Social History Smoking Status: Never smoker alcohol intake: never substance use type: denies use current occupational status: retired Travel in the last 8 weeks?: None household members: spouse housing: house caffeine: No Have you lived/traveled outside [place] in past 30 days?: No Contact w/someone who lives/traveled outside US past 30 days?: No Exposure to someone with infectious disease in past 14 days?: No Do you have a fever (greater than 100.4 F or 38 C)?: No Have you tested positive for COVID-19?: No Exposed to someone with COVID-19 in past 14 days?: No Do you have a sore throat?: No Do you have a cough?: No Do you have any weakness?: No Do you have any diarrhea?: No Are you experiencing any unusual bleeding?: No Do you have any muscle aches/pain?: No Do you have any abdominal pain?: No Are you experiencing loss of taste or smell?: No [facility] Anesthesia Checklist Patient Identification Patient Identification: Arm Band Structural Data Admitted From: Home Planned Operative Procedure/s: EGD Consent for Planned Operative Procedure(s) Verified: Yes Verified Documents: Surgical Consent and History and Physical NPO Status Verified Time NPO: 00:00 Additional verifications Anesthesia Reactions: No Hx Blood Transfusions: No Blood Transfusion Reaction: No Airway Assessment Mallampati Score:: Class I C-Spine Mobility Assessed: Yes TMJ Mobility Assessed: Yes Dentition: Good Dentition Neurological Assessment Level of Consciousness: Awake, Alert and Appropriate Anesthesia Plan Anesthesia Risk discussed: Yes Anesthesia Plan: Verified ASA Class: III Anesthesia Type: MAC
[2025-07-14 12:16] VITALS: BP 118/74; PULSE 77; RESP 16; TEMP 36.2; O2SAT 92
[2025-07-14 12:26] VITALS: BP 136/83; PULSE 77; RESP 16; O2SAT 96
[2025-07-14 12:36] VITALS: BP 126/69; PULSE 72; RESP 18; O2SAT 97
[2025-07-14 12:46] VITALS: BP 136/77; PULSE 62; RESP 18; O2SAT 99
[2025-07-19 13:26] LABS: Interpretation Notes (.); Lactase 25.27 (>/= 14.0); Maltase 116.2 (>/= 110.0); Palatinase 8.21 (>/= 8.5); Reference Notes (.); Sucrase 28.23 (>/= 25.0)
== END 2025-07-14 13:05 | disposition home or self-care (01) ==
PROVIDERS: PCP Family Medicine; Visit Provider Internal Medicine Gastroenterology
PROC: 0DJ08ZZ Inspection of Upper Intestinal Tract, Via Natural or Artificial Opening Endoscopic (ICD-10-PCS; CPT 43239; principal; 2025-07-14 11:30)
DX: K21.9 Gastro-esophageal reflux disease without esophagitis (principal); K31.89 Other diseases of stomach and duodenum; K44.9 Diaphragmatic hernia without obstruction or gangrene; K30 Functional dyspepsia; I50.30 Unspecified diastolic (congestive) heart failure; Z79.890 Hormone replacement therapy; Z79.899 Other long term (current) drug therapy; Z88.6 Allergy status to analgesic agent; Z88.1 Allergy status to other antibiotic agents; Z88.0 Allergy status to penicillin; Z88.2 Allergy status to sulfonamides; Z88.8 Allergy status to other drugs, medicaments and biological substances
CPT/HCPCS: 43239; 43249; 82657; C1726; J2003; J2704; J7120

== ENCOUNTER 2025-08-04 11:00 | Outpatient (RCR) | payer MEDICARE, OTHER, SELFPAY ==
--- NOTE | 2025-07-25 10:50 | HMH.RHREAS ---
Rehab Reassessment Rehab OP Re-assessment Start: 07/13/25 11:29 Freq: Status: Active Protocol: Document 07/25/25 10:37 EDY (Rec: 07/25/25 10:49 PHORRAY [id number]) E-signed By Kenney Akers, PT Rehab Re-assessment Subjective Subjective Pt reports no c/o pain at this time, but she continues to have tightness: throughout both LE. She states, I have a really hard time getting a shoe on and sometimes I can't even get a sock on that right foot. Objective Objective Notes Circumferential Measurements: R LE total is 171.8 cm which is -5.3 cm since IE L LE total is 164.5 cm which is -7.3 cm since IE Pain: 0/10 B LE TTP: 1/4 B lower legs Erythema: MILD erythema noted to B lower leg Edema: 2+ pitting edema to R LE, 1+ pitting to L LE Assessment Progress Assessment Progressing as Expected Assessment Notes Pt has been present for 6 treatment sessions since initial evaluation. Pt has shown significant overall B LE edema reduction based on circumferential measurements. She continues to have difficulty with donning shoes and certain ADLs due to increased LE edema. Skilled therapy remains indicated in order to further reduce overall lymphedema and ais improvement in pt QOL. Lymphedema Patient Goals Lymphedema Short in 2 wks pt will: Term Patient Goals 1) Reduce pitting edema to 1+ in B LE 2) Reduce circumferential measurements to B LE by 10 cm Lymphedema Information Management Officer in 4 wks pt will: Patient Goals 1) Reduce pitting edema to none in B LE 2) Reduce circumferential measurements to B LE by 15 cm 3) Be independent with donning/doffing of compression garments 4) be independent with Lymphedema management via HEP Plan Plan Updated POC sent to provider for further input as needed. Pt Treatment may include any of the following procedures in order to aid improvement in pt overall QOL. Frequency of Therapy 2 x/wk Duration of Therapy 4 wks Therapeutic Exercise Yes Including Home Exercise Program Manual Therapy Yes Techniques Neuromuscular Re- Yes education Therapeutic Yes Activities to Return to Previous Functional/Work Level ADL/Self Care Yes Education Orthotics/Bracing/ Yes Splinting Manual Lymphatic Yes Drainage Eval/Re-Eval Yes Time and Billing Re-Eval Time 16 Re-Eval Billing 0 Units Charge for PT No reassessment? PHYSICIAN CERTIFICATION: I certify the specified therapy services for Mindy Dobsonnd are required, authorized, and reviewed every 30 days.
== END 2025-08-04 23:59 | disposition home or self-care (01) ==
LOC: PT 11:00
PROVIDERS: PCP Family Medicine; Visit Provider Internal Medicine
DX: I89.0 Lymphedema, not elsewhere classified (principal)
CPT/HCPCS: 97140